=== PATIENT | male | born 1935 | race Caucasian/White ===

== ENCOUNTER 2019-01-30 22:44 | Emergency (ER) | payer MEDICARE, OTHER ==
[2019-01-30 22:51] VITALS: RESP 18
[2019-01-31] MEDS ORDERED: GELATIN SPONGE,ABSORB (LARGE) 1 EACH SPONGE TOPICAL STA (00:30)
--- NOTE | 2019-01-31 00:47 | ED ---
General Adult HPI - General Chief complaint: Wound/Laceration Stated complaint: Forearm Laceration Time Seen by Provider: 01/30/19 22:53 Source: patient, family Mode of arrival: wheelchair Limitations: no limitations - History of Present Illness Initial comments: Patient is an 9-year-old male presents emergency Department with a chief complaint of a cut on the hand. Patient reports the incident occurred approximately 2 hours prior to arrival. Patient reports he was working with porcelain when he lacerated the anterior aspect of the left forearm. Patient reports active bleeding at the time of incident which he has been able to maintain under control using Coban. Patient states he is taking baby aspirin. Patient denies any numbness or tingling anywhere the left arm. Patient denies any left upper extremity weakness and falls forward range of motion her left arm. Patient reports his tetanus shot is up-to-date. - Related Data Home Medications Medication Instructions Recorded Confirmed Aspirin 81 mg PO DAILY 03/27/14 01/30/19 Dutasteride [Avodart] 0.5 mg PO DAILY 03/27/14 01/30/19 amLODIPine BESYLATE [Norvasc] 5 mg PO DAILY 03/27/14 01/30/19 Multivit-Min/FA/Lycopene/Lut 1 tab PO DAILY 10/11/14 01/30/19 [Centrum Silver Tablet] Turmeric Root Extract [Turmeric] 500 mg PO DAILY 10/11/14 01/30/19 Vits A,C,E/Lutein/Minerals 1 tab PO DAILY 10/11/14 01/30/19 [Ocuvite with Lutein Tablet] Gabapentin [Neurontin] 800 mg PO TID 12/10/14 01/30/19 Albuterol Nebulized [Ventolin 2.5 mg INHALATION RT-QID PRN 12/11/14 01/30/19 Nebulized] HYDROcodone/APAP 7.5-325MG [[place] 1 tab PO BID PRN 01/30/19 01/30/19 7.5-325] Krill Oil 500 mg PO DAILY 01/30/19 01/30/19 Allergies Allergy/AdvReac Type Severity Reaction Status Date / Time Penicillins Allergy Rash/Hives Verified 01/30/19 22:58 Sulfa (Sulfonamide Allergy Rash/Hives Verified 01/30/19 22:58 Antibiotics) Review of Systems ROS Statement: Those systems with pertinent positive or pertinent negative responses have been documented in the HPI. ROS Other: All systems not noted in ROS Statement are negative. 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 BOWEL RESECTION WITH COLOSTOMY 11/2014, WOUND CENTER PROCEDURES R/T INFECTION IN ABDOMINAL WOUND, 08-15-15 reversal of colostomy/sigmoid resection/lysis of adhesions. Past Anesthesia/Blood Transfusion Reactions: No Reported Reaction Past Psychological History: No Psychological Hx Reported Smoking Status: Never smoker - Past Family History Mother Family Medical History: Cancer, Dementia Additional Family Medical History / Comment(s): breast cancer, heart murmur. mark escoto to be in her 80's. Father Family Medical History: Diabetes Mellitus Additional Family Medical History / Comment(s): at age 93 General Exam Limitations: no limitations General appearance: alert, in no apparent distress Head exam: Present: atraumatic, normocephalic, normal inspection Eye exam: Present: normal appearance, PERRL, EOMI Pupils: Present: normal accommodation ENT exam: Present: normal exam, normal oropharynx, mucous membranes moist, TM's normal bilaterally, normal external ear exam Neck exam: Present: normal inspection, full ROM Respiratory exam: Present: normal lung sounds bilaterally Cardiovascular Exam: Present: regular rate, normal rhythm, normal heart sounds Extremities exam: Present: full ROM, normal capillary refill, other (+2 ulnar and radial pulses bilaterally). Absent: normal inspection (1 sediment a laceration on the anterior aspect of the left forearm. Mild active bleeding.), tenderness Back exam: Present: normal inspection, full ROM Neurological exam: Present: alert, oriented X3 Psychiatric exam: Present: normal affect, normal mood Skin exam: Present: warm, intact, normal color Course Vital Signs 01/30/19 22:47 Temperature 97.9 F Pulse Rate 86 Respiratory 18 Rate Blood Pressure 160/76 O2 Sat by Pulse 98 Oximetry Procedures - Laceration Laceration #1 Consent Obtained: verbal consent Indication: laceration Site: upper extremity Size (cm): 1 Description: linear Depth: simple, single layer Sedation/Analgesia: none Anesthetic Used: lidocaine 1% Anesthesia Technique: local infiltration Amount (mls): 5 Pre-repair: irrigated extensively Type of Sutures: nylon Size of Sutures: 4-0 Number of Sutures: 2 Technique: simple, interrupted Patient Tolerated Procedure: well, no complications Medical Decision Making - Medical Decision Making Patient is a 3-year-old male presenting to emergency Department with a a chief complaint of a cut on the hand. Patient has a similar laceration on the anterior aspect of left forearm. Mild active bleeding noted. Pressure was applied until coagulation was achieved. Laceration site was repaired with 2 sutures. Patient advised to return to emergency department in 10 days for suture removal. Coban applied to prevent occurrence of any bleeding. Patient is not on blood thinners. Strict return parameters were thoroughly discussed the patient was understanding and agreeable. Case discussed with physician. Disposition Clinical Impression: Laceration Disposition: HOME SELF-CARE Condition: Stable Instructions (If sedation given, give patient instructions): Care For Your Stitches (DC), Laceration (DC) Additional Instructions: Please return to emergency department in 10 days for suture removal. Please follow proper wound care structures. Please return to emergency department if symptoms worsen. Is patient prescribed a controlled substance at d/c from ED?: No Referrals: Joey Oconnell MD [Primary Care Provider] - 1-2 days Time of Disposition: 00:46
[2019-01-31 01:12] VITALS: BP 140/79; PULSE 80; TEMP 97.8
== END 2019-01-31 01:12 | disposition home or self-care (01) ==
LOC: EC 22:44
DX: S51.812A Laceration without foreign body of left forearm, initial encounter (principal); J44.9 Chronic obstructive pulmonary disease, unspecified; Z79.82 Long term (current) use of aspirin; Z79.899 Other long term (current) drug therapy; Z88.0 Allergy status to penicillin; Z88.2 Allergy status to sulfonamides; W26.9XXA Contact with unspecified sharp object(s), initial encounter; Y92.002 Bathroom of unspecified non-institutional (private) residence as the place of occurrence of the external cause
CPT/HCPCS: 12001; 99282

== ENCOUNTER → 2019-02-01 | Outpatient (CLI) | payer MEDICARE, OTHER ==
--- NOTE | 2019-02-01 13:50 | US ---
EXAMINATION TYPE: US venous doppler duplex UE LT DATE OF EXAM: 02/01/2019 COMPARISON: NONE CLINICAL HISTORY: R22.30 Localized swelling, mass. Swelling. Hx of recent accidental arm laceration. SIDE PERFORMED: Left Grayscale, color doppler, spectral doppler imaging performed of the deep veins of the left upper extr emity. There is normal flow, compressibility and vascular waveforms. Left Arm: Negative for DVT IMPRESSION: No sonographic evidence of deep venous thrombosis within the left upper extremity.
== END | disposition home or self-care (01) ==
LOC: RADUSWWP 12:58
PROVIDERS: ATTEND Family Medicine
DX: R22.32 Localized swelling, mass and lump, left upper limb (principal)

== ENCOUNTER → 2020-02-08 | Outpatient (CLI) | payer MEDICARE, OTHER ==
--- NOTE | 2020-02-08 15:23 | CT ---
CT CHEST FOR PULMONARY EMBOLISM. EXAMINATION TYPE: CT angio chest DATE OF EXAM: 02/08/2020 INDICATION: Dyspnea. History of silicosis. CT DLP: 582 mGycm, Automated exposure control for dose reduction was used. CONTRAST: Patient injected with 100 mL of Isovue 370. COMPARISON: 10/06/2012 TECHNIQUE: CT of the chest is performed on a spiral scan at 2 mm thick sections. Study is performed with intravenous contrast timed for evaluation for pulmonary embolism. This will limit additional po rtions of the evaluation. 3-D MIP images reconstructed by the technologist are reviewed on the compu ter in the coronal and sagittal planes. FINDINGS: No persistent filling defects are evident to suggest an acute pulmonary embolism. No mediastinal or hilar adenopathy enlarged by CT criteria is evident. There is however extensive ca lcification within the small lymph nodes present. The ascending aorta diameter at the level of the ma in pulmonary artery is 3.8 cm. The main pulmonary artery diameter at the bifurcation is 3.7 cm. Vasc ular calcification is noted. Bilateral apical thickening is present. Small bilateral pleural effusions are present. There is perih ilar soft tissue densities extending into the hilum. A larger focus measuring 4.6 x 2.1 cm is in the left suprahilar region was apparently present previously and appears measurement similar to prior mary alice dy. In the coronal plane and some thickening of the soft tissue density extending towards the apex m ay be present compared to the prior study. Series [address] section through the upper abdomen r. There is a cyst in the anterior upper pole right kidn ey measuring 5.5 cm and 9 Hounsfield units. Fatty infiltration of the pancreas is present. Gallbladde r is surgically absent. IMPRESSIONS: 1. Small bilateral pleural effusions. 2. Extensive calcifications through the mediastinum lymphadenopathy. This is stable from comparison. 3. Perihilar soft tissue densities again evident. There may be some increasing soft tissue density in the left suprahilar region.
--- NOTE | 2020-02-09 19:18 | ECHOF ---
Referral Reason:R06.09 Dyspnea MEASUREMENTS -------- HEIGHT: 157.5 cm WEIGHT: 94.8 kg BP: RVIDd: 3.3 cm (< 3.3) IVSd: 1.2 cm (0.6 - 1.1) LVIDd: 4.4 cm (3.9 - 5.3) LVPWd: 1.5 cm (0.6 - 1.1) IVSs: 1.5 cm LVIDs: 4.3 cm LVPWs: 1.4 cm LA Diam: 3.9 cm (2.7 - 3.8) Ao Diam: 4.0 cm (2.0 - 3.7) MV EXCURSION: 24.642 mm (> 18.000) MV EF SLOPE: 195 mm/s (70 - 150) EPSS: 0.3 cm MV E Popeye: 1.04 m/s MV DecT: 114 ms MV A Popeye: 0.69 m/s MV E/A Ratio: 1.51 AV maxP.84 mmHg AV meanP.05 mmHg RAP: 5.00 mmHg RVSP: 26.52 mmHg FINDINGS -------- Atrial fibrillation. This was a technically adequate study. There is mild concentric left ventricular hypertrophy. Overall left ventricular systolic function i s low-normal with, an EF between 50 - 55 %. Left ventricular fillimg pressure cannot be estimated d ue to Atrial fibrillation. The right ventricle is normal in size. The left atrial size is normal. The right atrial size is normal. There is mild aortic valve sclerosis. Peak/mean gradient across the Aortic Valve is 10.84mmHg / 6.0 5mmHg. Mild mitral regurgitation is present. No regurgitation noted Right ventricular systolic pressure is normal at < 35 mmHg. The pulmonic valve was not well visualized. Aortic Root is mildly dilated and measures 4.1cm. There is no pericardial effusion. CONCLUSIONS -------- 1. There is mild concentric left ventricular hypertrophy. 2. Overall left ventricular systolic function is low-normal with, an EF between 50 - 55 %. 3. Left ventricular fillimg pressure cannot be estimated due to Atrial fibrillation. 4. The right ventricle is normal in size. 5. The left atrial size is normal. 6. The right atrial size is normal. 7. There is mild aortic valve sclerosis. 8. Peak/mean gradient across the Aortic Valve is 10.84mmHg / 6.05mmHg. 9. Mild mitral regurgitation is present. 10. No regurgitation noted 11. The pulmonic valve was not well visualized. 12. Aortic Root is mildly dilated and measures 4.1cm. 13. There is no pericardial effusion. [employer] PROCESS CONTROL TECHNICIAN: Nicolasa Umaña RDCS
== END | disposition home or self-care (01) ==
LOC: RADCTMAIN 11:43
PROVIDERS: ATTEND Internal Medicine Critical Care Medicine
DX: J90 Pleural effusion, not elsewhere classified (principal); M79.89 Other specified soft tissue disorders; I34.0 Nonrheumatic mitral (valve) insufficiency; I51.7 Cardiomegaly; I35.8 Other nonrheumatic aortic valve disorders; R59.0 Localized enlarged lymph nodes; Z88.0 Allergy status to penicillin; Z88.2 Allergy status to sulfonamides
CPT/HCPCS: 93306; 82565; 84520; 71275; 36415; Q9967

== ENCOUNTER 2020-04-14 09:34 | Inpatient (IN) | payer MEDICARE, OTHER ==
--- NOTE | 2020-04-14 09:59 | ED ---
General Adult HPI - General Chief complaint: Shortness of Breath Stated complaint: SOB, cough Time Seen by Provider: 04/14/20 09:45 Source: patient, RN notes reviewed Mode of arrival: wheelchair Limitations: no limitations - History of Present Illness Initial comments: Patient is a pleasant 84-year-old male presenting to the emergency department with difficulty in breathing. Onset of symptoms was several days ago. Patient has had some leg swelling progressive over the past few weeks. Patient has new diagnosis of irregular heartbeat. Patient was placed on Eliquis and Lasix. Patient has orthopnea this started last night. Dyspnea WORSENS with exertion. No calf pain. No fever. - Related Data Home Medications Medication Instructions Recorded Confirmed Dutasteride [Avodart] 0.5 mg PO DAILY 03/27/14 04/14/20 amLODIPine BESYLATE [Norvasc] 5 mg PO DAILY 03/27/14 04/14/20 Multivit-Min/FA/Lycopene/Lut 1 tab PO DAILY 10/11/14 04/14/20 [Centrum Silver Tablet] Turmeric Root Extract [Turmeric] 500 mg PO DAILY 10/11/14 04/14/20 Vits A,C,E/Lutein/Minerals 1 tab PO DAILY 10/11/14 04/14/20 [Ocuvite with Lutein Tablet] Gabapentin [Neurontin] 800 mg PO TID 12/10/14 04/14/20 Albuterol Nebulized [Ventolin 2.5 mg INHALATION RT-QID PRN 12/11/14 04/14/20 Nebulized] Krill Oil 500 mg PO DAILY 01/30/19 04/14/20 Apixaban [Eliquis] 2.5 mg PO BID 04/14/20 04/14/20 Furosemide [Lasix] 40 mg PO DAILY 04/14/20 04/14/20 HYDROcodone/APAP 7.5-325MG [[place] 1 tab PO BID PRN 04/14/20 04/14/20 7.5-325] Valsartan [Diovan] 160 mg PO HS 04/14/20 04/14/20 Allergies Allergy/AdvReac Type Severity Reaction Status Date / Time Penicillins Allergy Rash/Hives Verified 04/14/20 11:40 Sulfa (Sulfonamide Allergy Rash/Hives Verified 04/14/20 11:40 Antibiotics) Review of Systems ROS Statement: Those systems with pertinent positive or pertinent negative responses have been documented in the HPI. ROS Other: All systems not noted in ROS Statement are negative. Constitutional: Denies: fever Eyes: Denies: eye pain ENT: Denies: ear pain Respiratory: Reports: dyspnea Cardiovascular: Reports: dyspnea on exertion, orthopnea, edema Endocrine: Reports: fatigue Gastrointestinal: Denies: abdominal pain Genitourinary: Denies: dysuria Musculoskeletal: Denies: back pain Skin: Denies: rash Neurological: Denies: weakness Past Medical History Past Medical History: COPD, Osteoarthritis (OA), Prostate Disorder, Respiratory Disorder Additional Past Medical History / Comment(s): BPH, NERVE DAMAGE & PAIN LEFT HAND FROM SHINGLES -HE CAN ONLY HIS THUMB AND INDEX FINGER , HE HAS LUMBAR PAIN STIMULATOR FOR THE PAIN IN HIS LEFT HAND, HX OF DIVERTICULOSIS, PERFORATED BOWEL WITH COLOSTOMY (11/2014) ., 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 BOWEL RESECTION WITH COLOSTOMY 11/2014, WOUND CENTER PROCEDURES R/T INFECTION IN ABDOMINAL WOUND, 16 reversal of colostomy/sigmoid resection/lysis of adhesions. Past Anesthesia/Blood Transfusion Reactions: No Reported Reaction Past Psychological History: No Psychological Hx Reported Smoking Status: Never smoker Past Alcohol Use History: Daily Past Drug Use History: None Reported - Past Family History Mother Family Medical History: Cancer, Dementia Additional Family Medical History / Comment(s): breast cancer, heart murmur. lives to be in her 80's. Father Family Medical History: Diabetes Mellitus Additional Family Medical History / Comment(s): at age 93 General Exam Limitations: no limitations General appearance: alert, in no apparent distress Head exam: Present: normocephalic Eye exam: Present: normal appearance Neck exam: Present: normal inspection Respiratory exam: Present: wheezes, rales Cardiovascular Exam: Present: irregular rhythm GI/Abdominal exam: Present: soft. Absent: tenderness Extremities exam: Present: pedal edema. Absent: calf tenderness Neurological exam: Present: alert Psychiatric exam: Present: normal affect, normal mood Skin exam: Present: normal color Course Vital Signs 04/14/20 04/14/20 04/14/20 09:42 10:05 10:11 Temperature 99.1 F 97.9 F Pulse Rate 69 54 L Respiratory 16 22 20 Rate Blood Pressure 112/66 166/72 O2 Sat by Pulse 91 L 96 Oximetry 04/14/20 04/14/20 04/14/20 10:53 11:01 11:24 Temperature Pulse Rate 54 L 53 L 53 L Respiratory 20 Rate Blood Pressure 145/83 O2 Sat by Pulse 95 Oximetry - Reevaluation(s) Reevaluation #1: 04/14/20 11:08 Case was discussed with Dr. Elliott who is familiar with this patient . 04/14/20 11:49 Case was discussed with Dr. England, who will admit EKG Findings - EKG Comments: EKG Findings:: Atrial flutter with rate of 90. PVC present. QRS 90. QT 394. QTC 41. Normal axis. Normal QRS. Nonspecific T waves. Medical Decision Making - Medical Decision Making Patient clinically presents with symptoms similar to CHF however BNP is not significantly elevated. Chest x-ray shows possible CHF versus pneumonia. Testing for coronavirus will be added. Patient will be covered with IV antibiotics pending further results. Dr. England has been paged for admission. - Lab Data Result diagrams: 04/14/20 10:33 04/14/20 10:33 Lab Results 04/14/20 04/14/20 04/14/20 Range/Units 10:33 10:33 10:33 WBC 8.2 (3.8-10.6) k/uL RBC 5.92 H (4.30-5.90) m/uL Hgb 12.8 L (13.0-17.5) gm/dL Hct 43.0 (39.0-53.0) % MCV 72.7 L (80.0-100.0) fL MCH 21.6 L (25.0-35.0) pg MCHC 29.7 L (31.0-37.0) g/dL RDW 17.2 H (11.5-15.5) % Plt Count 446 (150-450) k/uL MPV 6.6 Neutrophils % 87 % Lymphocytes % 5 % Monocytes % 7 % Eosinophils % 0 % Basophils % 0 % Neutrophils # 7.1 (1.3-7.7) k/uL Lymphocytes # 0.4 L (1.0-4.8) k/uL Monocytes # 0.6 (0-1.0) k/uL Eosinophils # 0.0 (0-0.7) k/uL Basophils # 0.0 (0-0.2) k/uL Hypochromasia Marked Poikilocytosis Slight Anisocytosis Slight Microcytosis Moderate PT 10.9 (9.0-12.0) sec INR 1.1 (<1.2) APTT 24.3 (22.0-30.0) sec Sodium 140 (137-145) mmol/L Potassium 4.4 (3.5-5.1) mmol/L Chloride 99 (98-107) mmol/L Carbon Dioxide 34 H (22-30) mmol/L Anion Gap 7 mmol/L BUN 28 H (9-20) mg/dL Creatinine 0.78 (0.66-1.25) mg/dL Est GFR (CKD-EPI)AfAm >90 (>60 ml/min/1.73 sqM) Est GFR (CKD-EPI)NonAf 84 (>60 ml/min/1.73 sqM) Glucose 143 H (74-99) mg/dL Plasma Lactic Acid Rajesh (0.7-2.0) mmol/L Calcium 9.6 (8.4-10.2) mg/dL Total Bilirubin 0.8 (0.2-1.3) mg/dL AST 65 H (17-59) U/L ALT 24 (4-49) U/L Alkaline Phosphatase 139 H (38-126) U/L Troponin I (0.000-0.034) ng/mL NT-Pro-B Natriuret Pep pg/mL Total Protein 8.5 H (6.3-8.2) g/dL Albumin 4.0 (3.5-5.0) g/dL 04/14/20 04/14/20 04/14/20 Range/Units 10:33 10:33 10:33 WBC (3.8-10.6) k/uL RBC (4.30-5.90) m/uL Hgb (13.0-17.5) gm/dL Hct (39.0-53.0) % MCV (80.0-100.0) fL MCH (25.0-35.0) pg MCHC (31.0-37.0) g/dL RDW (11.5-15.5) % Plt Count (150-450) k/uL MPV Neutrophils % % Lymphocytes % % Monocytes % % Eosinophils % % Basophils % % Neutrophils # (1.3-7.7) k/uL Lymphocytes # (1.0-4.8) k/uL Monocytes # (0-1.0) k/uL Eosinophils # (0-0.7) k/uL Basophils # (0-0.2) k/uL Hypochromasia Poikilocytosis Anisocytosis Microcytosis PT (9.0-12.0) sec INR (<1.2) APTT (22.0-30.0) sec Sodium (137-145) mmol/L Potassium (3.5-5.1) mmol/L Chloride (98-107) mmol/L Carbon Dioxide (22-30) mmol/L Anion Gap mmol/L BUN (9-20) mg/dL Creatinine (0.66-1.25) mg/dL Est GFR (CKD-EPI)AfAm (>60 ml/min/1.73 sqM) Est GFR (CKD-EPI)NonAf (>60 ml/min/1.73 sqM) Glucose (74-99) mg/dL Plasma Lactic Acid Rajesh 2.0 (0.7-2.0) mmol/L Calcium (8.4-10.2) mg/dL Total Bilirubin (0.2-1.3) mg/dL AST (17-59) U/L ALT (4-49) U/L Alkaline Phosphatase (38-126) U/L Troponin I 0.014 (0.000-0.034) ng/mL NT-Pro-B Natriuret Pep 1100 pg/mL Total Protein (6.3-8.2) g/dL Albumin (3.5-5.0) g/dL - Radiology Data Radiology results: image reviewed (Chest x-ray shows probable changes and effusion. Consider pneumonia or CHF.) Disposition Clinical Impression: Dyspnea Disposition: ADMITTED IP TO THIS [facility] Condition: Serious Is patient prescribed a controlled substance at d/c from ED?: No Decision Time: 11:33
[2020-04-14] MEDS ORDERED: IPRATROPIUM-ALBUTEROL 3 ML NEB INHALATION STA (10:31)
[2020-04-14] MEDS ORDERED: FUROSEMIDE 10 MG/ML 4 ML VIAL IV STA (10:31)
[2020-04-14 10:46] LABS: Anisocytosis Slight; Basophils % (A) 0 %; Eosinophils % (A) 0 %; HGB 12.8 gm/dL (13.0-17.5); Hypochromasia Marked; Lymphocytes # (A) 0.4 k/uL (1.0-4.8); Lymphocytes % (A) 5 %; MCH 21.6 pg (25.0-35.0); MCHC 29.7 g/dL (31.0-37.0); MCV 72.7 fL (80.0-100.0); Mean Platelet Volume 6.6; Microcytosis Moderate; Monocytes # (A) 0.6 k/uL (0-1.0); Monocytes % (A) 7 %; Neutrophils # (A) 7.1 k/uL (1.3-7.7); Neutrophils % (A) 87 %; Platelet Count 446 k/uL (150-450); Poikilocytosis Slight; RBC 5.92 m/uL (4.30-5.90); RDW 17.2 % (11.5-15.5); WBC 8.2 k/uL (3.8-10.6)
[2020-04-14 10:54] LABS: ALT 24 U/L (4-49); AST 65 U/L (17-59); African American GFR (CKD) >90 (>60 ml/min/1.73 sqM); Alkaline Phosphatase 139 U/L (38-126); Anion Gap 7 mmol/L; Blood Urea Nitrogen 28 mg/dL (9-20); Calcium 9.6 mg/dL (8.4-10.2); Carbon Dioxide 34 mmol/L (22-30); Chloride 99 mmol/L (98-107); Glucose 143 mg/dL (74-99); Non-African American GFR(CKD) 84 (>60 ml/min/1.73 sqM); Potassium 4.4 mmol/L (3.5-5.1); Sodium 140 mmol/L (137-145); Total Bilirubin 0.8 mg/dL (0.2-1.3); Total Protein 8.5 g/dL (6.3-8.2)
--- NOTE | 2020-04-14 11:01 | XR ---
EXAMINATION TYPE: XR chest 2V DATE OF EXAM: 04/14/2020 COMPARISON: 12/15/2014 TECHNIQUE: PA and lateral views submitted. HISTORY: Shortness of breath FINDINGS: Large left upper lobe lung mass with bilateral areas of consolidation and pleural thickening and effu louis. There is a lead overlying the cervical spine with wire which may represent stimulator device. A rthropathy of the shoulders. IMPRESSION: 1. Diffuse pleural-parenchymal changes are seen progressed from the prior exam with a new areas of in filtrate and pleural effusion. Suspected left upper lobe lung mass or masslike area of consolidation. Correlate for pneumonia otherwise consider CHF.
[2020-04-14 11:12] LABS: INR 1.1 (<1.2); Partial Thromboplastin Time 24.3 sec (22.0-30.0); Prothrombin Time 10.9 sec (9.0-12.0)
[2020-04-14] MEDS ORDERED: PNEUMONIA PROTOCOL UTILIZED 1 EACH MISC PO PRN (11:35)
[2020-04-14] MEDS ORDERED: LEVOFLOXACIN 750MG-D5W PMX 750 MG in DEXTROSE/WATER 1 150ML.BAG IVPB STA (11:35)
[2020-04-14] MEDS ORDERED: IPRATROPIUM-ALBUTEROL 3 ML NEB INHALATION PRN (11:35)
[2020-04-14] MEDS ORDERED: HYDROcodone/APAP 7.5-325MG 1 EACH TAB PO PRN (11:51)
[2020-04-14] MEDS: IPRATROPIUM-ALBUTEROL 3 ML NEB INHALATION SCH ×3 (12:34→20:11)
[2020-04-14 12:38] LABS: C Reactive Protein 47.9 mg/L (<10.0)
[2020-04-14 17:15] LABS: Ferritin 331.7 ng/mL (22.0-322.0)
[2020-04-14] MEDS: GABAPENTIN 400 MG CAP PO SCH ×2 (17:17→21:29)
--- NOTE | 2020-04-14 18:11 | P.CNPUL ---
History of Present Illness Consult date: 04/14/20 Reason for consult: dyspnea History of present illness: 84-year-old male patient came into the emergency department because of worsening shortness of breath. He has been progressively getting more short of breath over the past few days. Developed some increased swelling in lower extremities bilaterally. The patient is known to me from the office. I was working up this patient for shortness of breath and I've also worked with Dr. Mckee from cardiology in regards to his problem. The patient was diagnosed having a new onset atrial fibrillation which we thought was contributing to shortness of breath. He did have atrial fibrillation/flutter. Note that during this current admission, he started having symptoms of exertional dyspnea and orthopnea along with lower extremity edema. In the ED, the patient tested negative for coronary bypass, 19. He had a wet second of 8.2 with a hemoglobin of 12.8. Platelet count is at 446. Note that the patient had a proBNP level of 1100. His BUN is 28 with a creatinine of 0.7. His chest x-ray showed chronic lung disease/fibrosis in addition to that there was increased pulmonary infiltration and pleural effusion and suspected CHF/interstitial edema on top of his chronic lung disease. In summary, this patient has been struggling with shortness of breath for quite some time. He shortness of breath started getting worse as of January 2020. 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 He has not used any pulmonary respiratory precautions. His FEV1 was in order of 50% of predicted with a diffusion capacity of 58% of predicted. This is based on the pulmonary function test from July 2015. No TB exposure. His PPD skin test was negative. He has also recovered from a bout of shingles in his left upper extremity which has less with significant amount of neuropathic pain in the involved area. I worked him up with another CAT scan of the chest that was done in January 2020 and the CAT scan showed essentially silicosis and abnormal pulmonary opacities that have not changed compared to previous evaluation from 2012. Nevertheless, there were small bilateral pleural effusion and he did demonstrate swelling in lower extremities and I started him on Lasix I referred him to cardiology for further identified that the patient was having a fibrillation/flutter. The patient was requiring oxygen.. Most recent echocardiogram that was done on 02/08/2020 showed a preserved LV function with an ejection fraction of 50-55%. He had mild concentric LVH, RV was within normal limits, there was mild aortic sclerosis and aortic root was measuring 4.1 cm without evidence of pericardial effusion. Review of Systems Comprehensive General Adult ROS Reported by Patient Eyes * Eyes: no dry eyes, no vision change, no irritation ENMT * Ears: no difficulty hearing, no ear pain * Nose: no frequent nosebleeds, no nose problems, no sinus problems * Mouth/Throat: no sore throat, no bleeding gums, no snoring, no dry mouth, no mouth ulcers, no oral abnormalities, no teeth problems Cardiovascular * Cardiovascular: no chest pain, no arm pain on exertion, shortness of breath when walking, shortness of breath when lying down, no palpitations, no known heart murmur , orthopnea and lower extremity edema Respiratory * Respiratory: shortness of breath Gastrointestinal * Gastrointestinal: (no GI issues) Genitourinary * Genitourinary: no incontinence, no difficulty urinating, no hematuria, no increased frequency Musculoskeletal * Musculoskeletal: no muscle aches, no muscle weakness, no arthralgias/joint pain, no back pain, no swelling in the extremities Integumentary * Skin: no abnormal mole, no jaundice, no rashes, no laceration Neurologic * Neurologic: no loss of consciousness, no numbness, no seizures, no dizziness, no migraines, no headaches, no tremor, weakness (severe weakness and atrophy in his left upper extremity secondary to a previous shingles affecting the brachial plexus.) Psychiatric * Psych: no depression, no sleep disturbances, feeling safe in a relationship, no alcohol abuse, no anxiety, no hallucinations, no suicidal thoughts Endocrine * Endocrine: no fatigue Hematologic/Lymphatic * Hematologic/Lymphatic no swollen glands, no bruising, no excessive bleeding Allergic/Immunologic * Allergy/Immunologic: no runny nose, no sinus pressure, no itching, no hives, no frequent sneezing Past Medical History Past Medical History: COPD, Osteoarthritis (OA), Prostate Disorder, Respiratory Disorder Additional Past Medical History / Comment(s): Silicosis, pneumoconiosis, A. 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 BOWEL RESECTION WITH COLOSTOMY 11/2014, [facility]OUND [facility] PROCEDURES R/T INFECTION IN ABDOMINAL WOUND, 08-15-15 reversal of colostomy/sigmoid resection/lysis of adhesions. Past Anesthesia/Blood Transfusion Reactions: No Reported Reaction Past Psychological History: No Psychological Hx Reported Smoking Status: Never smoker Past Alcohol Use History: Daily Additional Past Alcohol Use History / Comment(s): 1 GLASS OF WINE WITH DINNER. Past Drug Use History: None Reported - Past Family History Mother Family Medical History: Cancer, Dementia Additional Family Medical History / Comment(s): breast cancer, heart murmur. lives to be in her 80's. Father Family Medical History: Diabetes Mellitus Additional Family Medical History / Comment(s): at age 93 Medications and Allergies Home Medications Medication Instructions Recorded Confirmed Type Dutasteride [Avodart] 0.5 mg PO DAILY 03/27/14 04/14/20 History amLODIPine BESYLATE [Norvasc] 5 mg PO DAILY 03/27/14 04/14/20 History Multivit-Min/FA/Lycopene/Lut 1 tab PO DAILY 10/11/14 04/14/20 History [Centrum Silver Tablet] Turmeric Root Extract [Turmeric] 500 mg PO DAILY 10/11/14 04/14/20 History Vits A,C,E/Lutein/Minerals 1 tab PO DAILY 10/11/14 04/14/20 History [Ocuvite with Lutein Tablet] Gabapentin [Neurontin] 800 mg PO TID 12/10/14 04/14/20 History Albuterol Nebulized [Ventolin 2.5 mg INHALATION RT-QID PRN 12/11/14 04/14/20 History Nebulized] Krill Oil 500 mg PO DAILY 01/30/19 04/14/20 History Apixaban [Eliquis] 2.5 mg PO BID 04/14/20 04/14/20 History Furosemide [Lasix] 40 mg PO DAILY 04/14/20 04/14/20 History HYDROcodone/APAP 7.5-325MG [[place] 1 tab PO BID PRN 04/14/20 04/14/20 History 7.5-325] Valsartan [Diovan] 160 mg PO HS 04/14/20 04/14/20 History Allergies Allergy/AdvReac Type Severity Reaction Status Date / Time Penicillins Allergy Rash/Hives Verified 04/14/20 11:40 Sulfa (Sulfonamide Allergy Rash/Hives Verified 04/14/20 11:40 Antibiotics) Physical Exam Vitals: Vital Signs Temp Pulse Pulse Resp BP BP Pulse Ox 04/14/20 16:26 57 L 04/14/20 16:16 56 L 04/14/20 13:41 97 F L 54 L 19 151/66 95 04/14/20 11:57 97.3 F L 04/14/20 11:24 53 L 20 145/83 95 04/14/20 11:01 53 L 04/14/20 10:53 54 L 04/14/20 10:11 97.9 F 54 L 20 166/72 96 04/14/20 10:05 22 04/14/20 09:42 99.1 F 69 16 112/66 91 L Intake and Output 04/14/20 04/14/20 04/14/20 06:59 14:59 22:59 Intake Total 100 Output Total 500 Balance -400 Intake: Intake, IV Titration 100 Amount Levofloxacin 750Mg-D5w 100 Pmx 750 mg In Dextrose/ Water 1 150ml.bag @ 100 mls/hr IVPB ONCE STA Rx#: [id number] Output: Urine 500 Other: Weight 90.718 kg * General Appearance no diaphoresis, no respiratory distress, speech not interrupted by breaths, no dyspnea, no pallor, not cachectic, well nourished, appears well, obesity * Head exam was generally normal. There was no scleral icterus or corneal arcus. Mucous membranes were moist. * HEENT no pursed lip breathing, no jugular venous distention, no mucous membrane cyanosis, no perioral cyanosis, mallampati classification: class 1, Mallampati Classification: Class 3 * Chest no barrel chest, no retractions, no sternocleidomastoid muscle contractions, no supraclavicular retractions, no intercostal retractions, no prolonged expiratory wheezing, no decreased air movement, no rhonchi, no hyperinflation, decreased air movement (scoliosis of the spine) * Heart no right ventricular heave, no distant heart sounds, no s3 gallop * GI bowel sounds: hyperactive (borborygmi), bowel sounds: diminished or absent (scar from previous surgery over the mid abdomen) * Extremities no cyanosis, no clubbing, there is +1 edema in the lower extremities and atrophy and weakness in left upper extremity related to previous shingles infection edema * Neurologic no decreased mental status, no somnolence, no confusion * Examination of the skin revealed no evidence of significant rashes, suspicious appearing nevi or other concerning lesions. Results - Laboratory Findings CBC and BMP: 04/14/20 10:33 04/14/20 10:33 PT/INR, D-dimer PT 10.9 sec (9.0-12.0) 04/14/20 10:33 INR 1.1 (<1.2) 04/14/20 10:33 Abnormal lab findings: Abnormal Labs 04/14/20 04/14/20 04/14/20 10:33 10:33 10:33 RBC 5.92 H Hgb 12.8 L MCV 72.7 L MCH 21.6 L MCHC 29.7 L RDW 17.2 H Lymphocytes # 0.4 L Carbon Dioxide 34 H BUN 28 H Glucose 143 H Ferritin 331.7 H AST 65 H Alkaline Phosphatase 139 H Lactate Dehydrogenase 941 H C-Reactive Protein 47.9 H Total Protein 8.5 H - Diagnostic Findings Chest x-ray: image reviewed Assessment and Plan Plan: 1 shortness of breath as the patient is experiencing dyspnea on exertion along with orthopnea. Presentation is consistent with CHF. The patient understands chronic lung disease and fibrosis related to silicosis. He does have chronic restrictive lung disease. Furthermore, the patient developed a recent worsening shortness of breath and his current presentation is consistent with CHF. The jade virus COVID 19 testing was negative. The chest x-ray shows chronic fibrotic changes in addition to a component of interstitial edema and small bilateral pleural effusions. On examination, the patient has a congested cough and is also having some wheeze. 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
[2020-04-14] MEDS: methylPREDNISolone SOD SUCCI 40 MG/ML 1 ML VIAL IV SCH ×2 (18:54→23:41)
[2020-04-14] MEDS: FUROSEMIDE 10 MG/ML 4 ML VIAL IV SCH (21:29)
[2020-04-14] MEDS: APIXABAN 2.5 MG TABLET PO SCH (21:29)
[2020-04-14] MEDS: VALSARTAN 160 MG TAB PO SCH (21:29)
[2020-04-15 01:39] LABS: Magnesium 2.2 mg/dL (1.6-2.3); Potassium 4.5 mmol/L (3.5-5.1)
[2020-04-15 06:02] LABS: Glucose,Whole Blood 140 mg/dL (75-99)
[2020-04-15] MEDS: INSULIN ASPART (NovoLOG) 100 UNIT/ML VIAL SQ SCH ×4 (06:30→22:02)
[2020-04-15] MEDS ORDERED: FUROSEMIDE 40 MG TAB PO SCH (09:00)
[2020-04-15] MEDS: methylPREDNISolone SOD SUCCI 40 MG/ML 1 ML VIAL IV SCH ×3 (09:10→23:18)
[2020-04-15] MEDS: FINASTERIDE 5 MG TAB PO SCH (09:11)
[2020-04-15] MEDS: GABAPENTIN 400 MG CAP PO SCH ×3 (09:11→22:01)
[2020-04-15] MEDS: amLODIPine 5 MG TAB PO SCH (09:11)
[2020-04-15] MEDS: FUROSEMIDE 10 MG/ML 4 ML VIAL IV SCH ×2 (09:11→22:02)
[2020-04-15] MEDS: APIXABAN 2.5 MG TABLET PO SCH ×2 (09:11→22:01)
[2020-04-15] MEDS: LEVOFLOXACIN 750 MG TAB PO SCH (09:11)
[2020-04-15] MEDS: IPRATROPIUM-ALBUTEROL 3 ML NEB INHALATION SCH ×4 (09:20→21:35)
--- NOTE | 2020-04-15 09:47 | US ---
EXAMINATION TYPE: US chest DATE OF EXAM: 04/15/2020 COMPARISON: NONE CLINICAL HISTORY: effusions. TECHNIQUE: Targeted ultrasound of the posterior lower bilateral hemithoraces EXAM MEASUREMENTS: Left Pleural Effusion pocket size: 11.1 cm Left skin surface to fluid distance: 1.6 cm Left side marked for possible thoracentesis outside the dept. Pulmonologists are able to review the images in the patient?s EMR. IMPRESSIONS: As above
--- NOTE | 2020-04-15 10:41 | P.CRDCN ---
<Zaida De La Cruz - Last Filed: 04/15/20 10:15> History of Present Illness History of present illness: HISTORY OF PRESENTING ILLNESS This is a pleasant 84-year-old past medical history significant for right lobectomy secondary silicosis 1987, hypertension and atrial flutter on eliquis. He follows in the office with Dr. Figueroa. We have been asked to see in consultation for shortness of breath and suspected heart failure. He saw Dr. Figueroa in the office 04/01/2020 for symptoms of shortness of breath with exertion and lower extremity swelling. He was having some rales in the lungs also on exam at that time. He started him on valsartan, increase his oral daily lasix and decreased his amlodipine. The patient states he was following all these things at home but his breathing wasn't getting any better. On arrival he was started on IV lasix 40 mg IV BID. He is seen this morning still feeling short of breath however his edema has improved. He denies chest pain, dizziness or palpitations. DIAGNOSTICS EKG reveals atrial flutter wit heart rate of 90. Chest xray diffuse pleural-parenchymal changes with new areas of bilateral pleural effusions. Consider penumonia or heart failure. Laboratory reviewed, WBC 8.2, hgb 12.8, plt 446, sodium 140, potassium 4.5, creatinine 0.78, magnesium 2.2, troponin negative x1, NTproBNP normal at 1100 and procalcitonin 0.10 and COVID negative. Current cardiac medications include amlodipine 5 mg aily, valsartan 160 mg daily, lasix 40 mg daily and eliquis 2.5 mg BID. REVIEW OF SYSTEMS At the time of my exam: CONSTITUTIONAL: Denies fever or chills. CARDIOVASCULAR: Complains of shortness of breath and orthopnea. Denies chest pain, PND or palpitations. RESPIRATORY: Denies cough. GASTROINTESTINAL: Denies abdominal pain, diarrhea, constipation, nausea or vomiting. MUSCULOSKELETAL: Denies myalgias. NEUROLOGIC: Denies numbness, tingling or weakness. ENDOCRINE: Denies fatigue, weight change, polydipsia or polyurina. GENITOURINARY: Denies burning, hematuria or urgency with micturation. HEMATOLOGIC: Denies history of anemia or bleeding. PHYSICAL EXAMINATION Blood pressure 168/78 heart rate 58 afebrile and maintaining oxygen saturation on nasal cannula. CONSTITUTIONAL: No apparent distress. HEENT: Head is normocephalic. Pupils are equal, round. Sclerae anicteric. Mucous membranes of the mouth are moist. No JVD. No carotid bruit. CHEST EXAMINATION: Scattered rhonchi, bibasilar rales and expiratory wheeze. No chest wall tenderness is noted on palpation or with deep breathing. HEART EXAMINATION: Regular rate and rhythm. S1, S2 heard. No murmurs, gallops or rub. ABDOMEN: Soft, nontender. Positive bowel sounds. EXTREMITIES: 2+ peripheral pulses, trace bilateral lower extremity edema and no calf tenderness. NEUROLOGIC EXAMINATION: Patient is awake, alert and oriented x3. ASSESSMENT Shortness of breath, multi-factorial. No real improvement on outpatient increased lasix, normal NTproBNP. Bilateral pleural effusions Typical atrial flutter with controlled rate History of silicosis s/p lobectomy with lung fibrosis PLAN Obtain ultrasound of the chest to assess pleural effusions noted on bedside echocardiogram with fibrin noted. Less likely to be cardiac driven with fibrin. Consider therapeutic/diagnostic thoracentesis if found to be sizable. Thank you kindly for this consultation. Nurse Practitioner note has been reviewed, I agree with a documented findings and plan of care. Patient was seen and examined. Past Medical History Past Medical History: COPD, Osteoarthritis (OA), Prostate Disorder, Respiratory Disorder Additional Past Medical History / Comment(s): Silicosis, pneumoconiosis, A. 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 BOWEL RESECTION WITH COLOSTOMY 11/2014, [facility] PROCEDURES R/T INFECTION IN ABDOMINAL WOUND, 08-15-15 reversal of colostomy/sigmoid resection/lysis of adhesions. Past Anesthesia/Blood Transfusion Reactions: No Reported Reaction Past Psychological History: No Psychological Hx Reported Smoking Status: Never smoker Past Alcohol Use History: Daily Additional Past Alcohol Use History / Comment(s): 1 GLASS OF WINE WITH DINNER. Past Drug Use History: None Reported - Past Family History Mother Family Medical History: Cancer, Dementia Additional Family Medical History / Comment(s): breast cancer, heart murmur. lives to be in her 80's. Father Family Medical History: Diabetes Mellitus Additional Family Medical History / Comment(s): at age 93 Medications and Allergies Home Medications Medication Instructions Recorded Confirmed Type Dutasteride [Avodart] 0.5 mg PO DAILY 03/27/14 04/14/20 History amLODIPine BESYLATE [Norvasc] 5 mg PO DAILY 03/27/14 04/14/20 History Multivit-Min/FA/Lycopene/Lut 1 tab PO DAILY 10/11/14 04/14/20 History [Centrum Silver Tablet] Turmeric Root Extract [Turmeric] 500 mg PO DAILY 10/11/14 04/14/20 History Vits A,C,E/Lutein/Minerals 1 tab PO DAILY 10/11/14 04/14/20 History [Ocuvite with Lutein Tablet] Gabapentin [Neurontin] 800 mg PO TID 12/10/14 04/14/20 History Albuterol Nebulized [Ventolin 2.5 mg INHALATION RT-QID PRN 12/11/14 04/14/20 History Nebulized] Krill Oil 500 mg PO DAILY 01/30/19 04/14/20 History Apixaban [Eliquis] 2.5 mg PO BID 04/14/20 04/14/20 History Furosemide [Lasix] 40 mg PO DAILY 04/14/20 04/14/20 History HYDROcodone/APAP 7.5-325MG [Gardners 1 tab PO BID PRN 04/14/20 04/14/20 History 7.5-325] Valsartan [Diovan] 160 mg PO HS 04/14/20 04/14/20 History Allergies Allergy/AdvReac Type Severity Reaction Status Date / Time Penicillins Allergy Rash/Hives Verified 04/14/20 11:40 Sulfa (Sulfonamide Allergy Rash/Hives Verified 04/14/20 11:40 Antibiotics) Physical Exam Vitals: Vital Signs Temp Pulse Pulse Resp BP BP Pulse Ox 04/15/20 09:21 58 L 04/15/20 04:00 74 20 168/78 95 04/14/20 23:58 97.8 F 56 L 22 140/73 97 04/14/20 20:22 60 04/14/20 20:13 57 L 04/14/20 20:00 97.5 F L 55 L 24 161/66 96 04/14/20 16:26 57 L 04/14/20 16:16 56 L 04/14/20 16:00 97.5 F L 55 L 24 169/75 94 L 04/14/20 13:41 97 F L 54 L 19 151/66 95 04/14/20 11:57 97.3 F L 04/14/20 11:24 53 L 20 145/83 95 04/14/20 11:01 53 L 04/14/20 10:53 54 L 04/14/20 10:11 97.9 F 54 L 20 166/72 96 04/14/20 10:05 22 04/14/20 09:42 99.1 F 69 16 112/66 91 L Intake and Output 04/14/20 04/15/20 04/15/20 22:59 06:59 14:59 Intake Total 120 50 Output Total 180 600 Balance -60 -550 Intake: Oral 120 50 Output: Urine 180 600 Other: Voiding Method Urinal Urinal Weight 91.1 kg Results 04/14/20 10:33 04/15/20 01:07 Cardiac Enzymes 04/14/20 04/14/20 04/14/20 Range/Units 10:33 10:33 10:33 AST 65 H (17-59) U/L Lactate Dehydrogenase 941 H (313-618) U/L Troponin I 0.014 (0.000-0.034) ng/mL Coagulation 04/14/20 Range/Units 10:33 PT 10.9 (9.0-12.0) sec APTT 24.3 (22.0-30.0) sec CBC 04/14/20 Range/Units 10:33 WBC 8.2 (3.8-10.6) k/uL RBC 5.92 H (4.30-5.90) m/uL Hgb 12.8 L (13.0-17.5) gm/dL Hct 43.0 (39.0-53.0) % Plt Count 446 (150-450) k/uL Comprehensive Metabolic Panel 04/14/20 04/15/20 Range/Units 10:33 01:07 Sodium 140 (137-145) mmol/L Potassium 4.4 4.5 (3.5-5.1) mmol/L Chloride 99 (98-107) mmol/L Carbon Dioxide 34 H (22-30) mmol/L BUN 28 H (9-20) mg/dL Creatinine 0.78 (0.66-1.25) mg/dL Glucose 143 H (74-99) mg/dL Calcium 9.6 (8.4-10.2) mg/dL AST 65 H (17-59) U/L ALT 24 (4-49) U/L Alkaline Phosphatase 139 H (38-126) U/L Total Protein 8.5 H (6.3-8.2) g/dL Albumin 4.0 (3.5-5.0) g/dL Current Medications Generic Name Dose Route Start Last Admin Trade Name Freq PRN Reason Stop Dose Admin Hydrocodone Bitart/Acetaminophen 1 each 04/14/20 11:51 04/15/20 03:22 Hydrocodone/Apap 7.5-325mg 1 Each Tab PO 1 each BID PRN Administration Pain Albuterol/Ipratropium 3 ml 04/14/20 12:00 04/15/20 09:20 Ipratropium-Albuterol 3 Ml Neb INHALATION 3 ml RT-QID ANNE Administration Albuterol/Ipratropium 3 ml 04/14/20 11:35 Ipratropium-Albuterol 3 Ml Neb INHALATION RT-Q4H PRN shortness of breath Amlodipine Besylate 5 mg 04/15/20 09:00 04/15/20 09:11 Amlodipine 5 Mg Tab PO 5 mg DAILY ANNE Administration Apixaban 2.5 mg 04/14/20 21:00 04/15/20 09:11 Apixaban 2.5 Mg Tablet PO 2.5 mg BID ANNE Administration Finasteride 5 mg 04/15/20 09:00 04/15/20 09:11 Finasteride 5 Mg Tab PO 5 mg DAILY ANNE Administration Furosemide 40 mg 04/14/20 21:00 04/15/20 09:11 Furosemide 10 Mg/Ml 4 Ml Vial IV 40 mg Q12HR ANNE Administration Gabapentin 800 mg 04/14/20 16:00 04/15/20 09:11 Gabapentin 400 Mg Cap PO 800 mg TID ANNE Administration Insulin Aspart 0 unit 04/15/20 07:30 04/15/20 06:30 Insulin Aspart (Novolog) 100 Unit/Ml Vial SQ 1 unit ACHS ANNE Administration Protocol Levofloxacin 750 mg 04/15/20 09:00 04/15/20 09:11 Levofloxacin 750 Mg Tab PO 04/19/20 09:01 750 mg DAILY ANNE Administration Methylprednisolone Sodium Succinate 40 mg 04/14/20 18:15 04/15/20 09:10 Methylprednisolone Sod Succi 40 Mg/Ml 1 Ml Vial IV 40 mg Q8HR ANNE Administration Miscellaneous Information 1 each 04/14/20 11:35 Pneumonia Protocol Utilized 1 Each Misc PO ONCE PRN Per Protocol Valsartan 160 mg 04/14/20 21:00 04/14/20 21:29 Valsartan 160 Mg Tab PO 160 mg HS ANNE Administration Intake and Output 04/14/20 04/15/20 04/15/20 22:59 06:59 14:59 Intake Total 120 50 Output Total 180 600 Balance -60 -550 Intake: Oral 120 50 Output: Urine 180 600 Other: Voiding Method Urinal Urinal Weight 91.1 kg 04/14/20 10:33 04/15/20 01:07 <Shahid Shoemaker - Last Filed: 04/15/20 15:24> History of Present Illness History of present illness: Patient seen and examined. Agree with assessment and plan as above. Chest Xrays show bilateral patchy infiltrates. He admits to cough and SOB for approximately 3 weeks and occassional night sweats "drenching" per patient for a few nights. Has not had much improvement with Lasix outpt. Pulmonology recommendations appreciated. May consider diagnostic and theraputic thoracentesis however defer to pulmonary. BNP not grossly abnormal and Echo showing normal LV function EF 60-65%, diastology difficult to obtain given AFlutter. Continue Lasix and monitor response. Further recommendations to follow. Shahid Shoemaker, DO Physical Exam Vitals: Vital Signs Temp Pulse Pulse Resp BP Pulse Ox 04/15/20 13:17 60 04/15/20 13:05 60 94 L 04/15/20 12:00 74 20 137/62 94 L 04/15/20 11:35 94 L 04/15/20 09:35 58 L 04/15/20 09:21 58 L 04/15/20 08:00 97.6 F 89 25 H 166/72 90 L 04/15/20 04:00 74 20 168/78 95 04/14/20 23:58 97.8 F 56 L 22 140/73 97 04/14/20 20:22 60 04/14/20 20:13 57 L 04/14/20 20:00 97.5 F L 55 L 24 161/66 96 04/14/20 16:26 57 L 04/14/20 16:16 56 L 04/14/20 16:00 97.5 F L 55 L 24 169/75 94 L Intake and Output 04/15/20 04/15/20 04/15/20 06:59 14:59 22:59 Intake Total 50 Output Total 600 350 Balance -550 -350 Intake: Oral 50 Output: Urine 600 350 Other: Voiding Method Urinal Weight 91.1 kg Results 04/14/20 10:33 04/15/20 01:07 Comprehensive Metabolic Panel 04/15/20 Range/Units 01:07 Potassium 4.5 (3.5-5.1) mmol/L Current Medications Generic Name Dose Route Start Last Admin Trade Name Freq PRN Reason Stop Dose Admin Hydrocodone Bitart/Acetaminophen 1 each 04/14/20 11:51 04/15/20 03:22 Hydrocodone/Apap 7.5-325mg 1 Each Tab PO 1 each BID PRN Administration Pain Albuterol/Ipratropium 3 ml 04/14/20 12:00 04/15/20 13:05 Ipratropium-Albuterol 3 Ml Neb INHALATION 3 ml RT-QID ANNE Administration Albuterol/Ipratropium 3 ml 04/14/20 11:35 Ipratropium-Albuterol 3 Ml Neb INHALATION RT-Q4H PRN shortness of breath Amlodipine Besylate 5 mg 04/15/20 09:00 04/15/20 09:11 Amlodipine 5 Mg Tab PO 5 mg DAILY ANNE Administration Apixaban 2.5 mg 04/14/20 21:00 04/15/20 09:11 Apixaban 2.5 Mg Tablet PO 2.5 mg BID ANNE Administration Finasteride 5 mg 04/15/20 09:00 04/15/20 09:11 Finasteride 5 Mg Tab PO 5 mg DAILY ANNE Administration Furosemide 40 mg 04/14/20 21:00 04/15/20 09:11 Furosemide 10 Mg/Ml 4 Ml Vial IV 40 mg Q12HR ANNE Administration Gabapentin 800 mg 04/14/20 16:00 04/15/20 09:11 Gabapentin 400 Mg Cap PO 800 mg TID ANNE Administration Insulin Aspart 0 unit 04/15/20 07:30 04/15/20 12:04 Insulin Aspart (Novolog) 100 Unit/Ml Vial SQ Not Given ACHS ANNE Protocol Levofloxacin 750 mg 04/15/20 09:00 04/15/20 09:11 Levofloxacin 750 Mg Tab PO 04/19/20 09:01 750 mg DAILY ANNE Administration Methylprednisolone Sodium Succinate 40 mg 04/14/20 18:15 04/15/20 09:10 Methylprednisolone Sod Succi 40 Mg/Ml 1 Ml Vial IV 40 mg Q8HR ANNE Administration Miscellaneous Information 1 each 04/14/20 11:35 Pneumonia Protocol Utilized 1 Each Misc PO ONCE PRN Per Protocol Valsartan 160 mg 04/14/20 21:00 04/14/20 21:29 Valsartan 160 Mg Tab PO 160 mg HS ANNE Administration Intake and Output 04/15/20 04/15/20 04/15/20 06:59 14:59 22:59 Intake Total 50 Output Total 600 350 Balance -550 -350 Intake: Oral 50 Output: Urine 600 350 Other: Voiding Method Urinal Weight 91.1 kg 04/14/20 10:33 04/15/20 01:07
--- NOTE | 2020-04-15 10:50 | XR ---
EXAMINATION TYPE: XR chest 2V DATE OF EXAM: 04/15/2020 COMPARISON: 04/14/2020 HISTORY: Shortness of breath TECHNIQUE: Frontal and lateral views of the chest are obtained. FINDINGS: Scattered senescent parenchymal changes noted. Hyperinflation compatible with COPD. Patchy infiltrate right lower lobe as well as scattered throughout the right lung and left suprahilar region persists. Small effusions also noted. Correlate for pneumonia which is essentially stable rel ative to the prior study. Heart size is stable. Mediastinal structures are stable and grossly unremarkable. No evidence for hilar prominence. Degenerative changes dorsal spine. IMPRESSION: 1. Stable features of pneumonia.
[2020-04-15 12:24] LABS: Glucose,Whole Blood 126 mg/dL (75-99)
--- NOTE | 2020-04-15 13:35 | ECHOF ---
Referral Reason:dyspnea MEASUREMENTS -------- HEIGHT: 177.8 cm WEIGHT: 90.7 kg BP: 168/78 IVSd: 1.1 cm (0.6 - 1.1) LVIDd: 5.1 cm (3.9 - 5.3) LVPWd: 1.1 cm (0.6 - 1.1) EDV(Teich): 121 ml IVSs: 1.8 cm LVIDs: 2.9 cm LVPWs: 1.6 cm %IVS Thck: 56 % ESV(Teich): 32 ml EF(Teich): 74 % %FS: 43 % SV(Teich): 89 ml LA Diam: 3.8 cm (2.7 - 3.8) RVIDd: 3.8 cm (< 3.3) Ao Diam: 3.5 cm (2.0 - 3.7) AV Cusp: 1.9 cm (1.5 - 2.6) EPSS: 0.8 cm TR Vmax: 2.84 m/s TR maxP.36 mmHg RAP: 5.00 mmHg RVSP: 37.36 mmHg MV EF SLOPE: 90.11 mm/s (70 - 150) MV EXCURSION: 19.46 mm (> 18.000) FINDINGS -------- This was a technically difficult study with suboptimal views. The left ventricular size is normal. There is borderline concentric left ventricular hypertrophy. Overall left ventricular systolic function is normal with, an EF between 60 - 65 %. The right ventricle is mild to moderately enlarged. The left atrium is normal in size. The right atrium is normal in size. Interatrial and interventricular septum intact. There is mild aortic valve sclerosis. There is trace to mild mitral regurgitation. Mild tricuspid regurgitation present. There is mild pulmonary hypertension. The right ventricular systolic pressure, as measured by Doppler, is 37.36mmHg. The pulmonic valve was not well visualized. The aortic root size is normal. IVC Not well visulized. There is no pericardial effusion. Pleural Effusion with Fibrin. CONCLUSIONS -------- 1. The left ventricular size is normal. 2. There is borderline concentric left ventricular hypertrophy. 3. Overall left ventricular systolic function is normal with, an EF between 60 - 65 %. 4. The right ventricle is mild to moderately enlarged. 5. There is trace to mild mitral regurgitation. 6. Mild tricuspid regurgitation present. 7. There is mild pulmonary hypertension. 8. The right ventricular systolic pressure, as measured by Doppler, is 37.36mmHg. 9. There is no pericardial effusion. 10. Pleural Effusion with Fibrin. BINDERY OPERATOR: Megha Doran RDCS
[2020-04-15 15:07] LABS: Glucose,Whole Blood 201 mg/dL (75-99)
[2020-04-15 17:00] LABS: Glucose,Whole Blood 148 mg/dL (75-99)
--- NOTE | 2020-04-15 17:13 | P.PN ---
Subjective Progress Note Date: 04/15/20 Principal diagnosis: Acute on chronic hypoxic respiratory failure secondary to chronic pulmonary fibrosis and acute diastolic congestive heart failure 84-year-old male patient came into the emergency department because of worsening shortness of breath. He has been progressively getting more short of breath over the past few days. Developed some increased swelling in lower extremities bilaterally. The patient is known to me from the office. I was working up this patient for shortness of breath and I've also worked with Dr. Mckee from cardiology in regards to his problem. The patient was diagnosed having a new onset atrial fibrillation which we thought was contributing to shortness of breath. He did have atrial fibrillation/flutter. Note that during this current admission, he started having symptoms of exertional dyspnea and orthopnea along with lower extremity edema. In the ED, the patient tested negative for coronary bypass, 19. He had a wet second of 8.2 with a hemoglobin of 12.8. Platelet count is at 446. Note that the patient had a proBNP level of 1100. His BUN is 28 with a creatinine of 0.7. His chest x-ray showed chronic lung disease/fibrosis in addition to that there was increased pulmonary infiltration and pleural effusion and suspected CHF/interstitial edema on top of his chronic lung disease. In summary, this patient has been struggling with shortness of breath for quite some time. He shortness of breath started getting worse as of January 2020. 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 He has not used any pulmonary respiratory precautions. His FEV1 was in order of 50% of predicted with a diffusion capacity of 58% of predicted. This is based on the pulmonary function test from July 2015. No TB exposure. His PPD skin test was negative. He has also recovered from a bout of shingles in his left upper extremity which has less with significant amount of neuropathic pain in the involved area. I worked him up with another CAT scan of the chest that was done in January 2020 and the CAT scan showed essentially silicosis and abnormal pulmonary opacities that have not changed compared to previous evaluation from 2012. Nevertheless, there were small bilateral pleural effusion and he did demonstrate swelling in lower extremities and I started him on Lasix I referred him to cardiology for further identified that the patient was having a fibrillation/flutter. The patient was requiring oxygen.. Most recent echocardiogram that was done on 02/08/2020 showed a preserved LV function with an ejection fraction of 50-55%. He had mild concentric LVH, RV was within normal limits, there was mild aortic sclerosis and aortic root was measuring 4.1 cm without evidence of pericardial effusion. Reevaluated today on 04/15/20, patient is sitting, resting at a bedside chair, he tells me that his shortness of breath is much improved. Patient is known to have history of chronic silicosis and occupational pneumoconiosis with pulmonary fibrosis. His last ultrasound showed good sized pocket in the left pleural space, however the patient is responding well to diuretics, and I would hold on thoracentesis for now. CBC is relatively normal left lites are normal patient tested negative for covid 19 Objective - Vital Signs Vital signs: Vital Signs Temp 97.6 F 04/15/20 08:00 Pulse 60 04/15/20 13:17 Resp 20 04/15/20 12:00 BP 137/62 04/15/20 12:00 Pulse Ox 94 L 04/15/20 13:05 Intake & Output 04/14/20 04/15/20 04/15/20 18:59 06:59 18:59 Intake Total 220 50 240 Output Total 500 780 350 Balance -280 -730 -110 Weight 90.718 kg 91.1 kg Intake: Intake, IV Titration 100 Amount Levofloxacin 750Mg-D5w 100 Pmx 750 mg In Dextrose/ Water 1 150ml.bag @ 100 mls/hr IVPB ONCE STA Rx#: [id number] Oral 120 50 240 Output: Urine 500 780 350 Other: Voiding Method Urinal - Exam Blood pressure 168/78 heart rate 58 afebrile and maintaining oxygen saturation on nasal cannula. CONSTITUTIONAL: Revealed a 84-year-old white male in no distress. On few liters nasal cannula. HEENT: Head is normocephalic. Pupils are equal, round. Sclerae anicteric. Mucous membranes of the mouth are moist. No JVD. No carotid bruit. CHEST EXAMINATION: Back of the and rhonchi noted at the bases. HEART EXAMINATION: Regular rate and rhythm. S1, S2 heard. No murmurs, gallops or rub. ABDOMEN: Soft, nontender. Positive bowel sounds. EXTREMITIES: 2+ peripheral pulses, trace bilateral lower extremity edema and no calf tenderness. NEUROLOGIC EXAMINATION: Patient is awake, alert and oriented x3. Psychiatric: Normal mood, affect and normal mental status examination. - Labs CBC & Chem 7: 04/14/20 10:33 04/15/20 01:07 Labs: Abnormal Lab Results - Last 24 Hours (Table) 04/14/20 04/14/20 04/15/20 Range/Units 10:33 10:33 06:01 POC Glucose (mg/dL) 140 H (75-99) mg/dL Ferritin 331.7 H (22.0-322.0) ng/mL Procalcitonin 0.10 H (0.02-0.09) ng/mL 04/15/20 04/15/20 04/15/20 Range/Units 12:02 15:04 16:48 POC Glucose (mg/dL) 126 H 201 H 148 H (75-99) mg/dL Ferritin (22.0-322.0) ng/mL Procalcitonin (0.02-0.09) ng/mL Microbiology - Last 24 Hours (Table) 04/14/20 11:56 Blood Culture - Preliminary Blood No Growth after 24 hours Assessment and Plan Assessment: Impression: Acute on chronic hypoxic respiratory failure secondary to occupational pneumoconiosis, pleural effusion, and suspect acute diastolic congestive heart failure. History of silicosis with chronic fibrotic changes in the lungs. History of diverticular disease. Chronic atrial fibrillation. Recommendation: Continue Lasix as the patient is improving. Continue steroids. Continue updrafts. Continue empiric antibiotics. Will consider thoracentesis only the patient doesn't improve much with diuresis. We'll continue to follow. Time with Patient: Less than 30
[2020-04-15 20:20] LABS: Glucose,Whole Blood 172 mg/dL (75-99)
[2020-04-15] MEDS: VALSARTAN 160 MG TAB PO SCH (22:09)
--- NOTE | 2020-04-15 23:03 | P.HPIM ---
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 Chronic stable medical conditions include COPD, osteoarthritis, silicosis, pneumoconiosis, atrial flutter fibrillation, chronic fibrosis and restrictive lung disease, chronic back pain, number spine stability to, diverticulosis, due to third of the right lung removed. Patient presents with progressively increasing short of breath going on at least much worse with the last 2 weeks. Increasing edema in the lower extremity. No cough no fever. Decreased appetite. 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 Drinks a glass of wine daily. . Does use a walker Physical examination: VITAL SIGNS: 99.1, 66, 16, 112/66, 91% room air GENERAL: BMI 28.8, sitting up, short of breath. EYES: Pupils equal. Conjunctiva normal. HEENT: External appearance of nose and ears normal, oral cavity grossly normal. NECK: Neck vein graced; masses not palpable. HEART: First and second heart sounds are normal; edema present. LUNGS: Respiratory rate increased, right basal crackles. ABDOMEN: Soft, nontender, liver spleen not palpable, no masses palpable. PSYCH: Alert and oriented x3; mood and affect normal. MUSCULAR skeletal: Evidence of OA NEUROLOGICAL: Cranial nerves grossly intact; no facial asymmetry, power and se nsation grossly intact. LYMPHATICS: No lymph nodes palpable in the axilla and neck INVESTIGATIONS, reviewed in the clinical context: White count 8.2 hemoglobin 12.8 platelets 446 potassium 4.4 creatinine 0.78 LDH 941 CRP 47.9, pro calcitonin 0.10, proBNP-1100 Coronavirus PCR-not detected EKG tracing personally reviewed by me- atrial flutter with 2 dose to 1 conduction Chest x-ray film personally reviewed by me-the report includes-large left upper lobe mass with bilateral areas of consolidation and pleural thickening and effusion. Progressed from the previous exam. Assessment: -Acute congestive heart exacerbation from diastolic dysfunction. 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 Pleural effusion -Possible pneumonia. Cover for gram-negative bacteria. Plan: Patient started on IV Lasix. Eyes and was being monitored. Home medications resumed. Also on IV steroids. Cardiology and pulmonary consulted. Tommy reyes closely. Repeat proBNP in the morning. Levaquin added. By pulmonary. Repeat labs BnP in the morning. Past Medical History Past Medical History: COPD, Osteoarthritis (OA), Prostate Disorder, Respiratory Disorder Additional Past Medical History / Comment(s): Silicosis, pneumoconiosis, A. 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 BOWEL RESECTION WITH COLOSTOMY 11/2014, [facility] PROCEDURES R/T INFECTION IN ABDOMINAL WOUND, 08-15-15 reversal of colostomy/sigmoid resection/lysis of adhesions. Past Anesthesia/Blood Transfusion Reactions: No Reported Reaction Past Psychological History: No Psychological Hx Reported Smoking Status: Never smoker Past Alcohol Use History: Daily Additional Past Alcohol Use History / Comment(s): 1 GLASS OF WINE WITH DINNER. Past Drug Use History: None Reported - Past Family History Mother Family Medical History: Cancer, Dementia Additional Family Medical History / Comment(s): breast cancer, heart murmur. lives to be in her 80's. Father Family Medical History: Diabetes Mellitus Additional Family Medical History / Comment(s): at age 93 Medications and Allergies Home Medications Medication Instructions Recorded Confirmed Type Dutasteride [Avodart] 0.5 mg PO DAILY 03/27/14 04/14/20 History amLODIPine BESYLATE [Norvasc] 5 mg PO DAILY 03/27/14 04/14/20 History Multivit-Min/FA/Lycopene/Lut 1 tab PO DAILY 10/11/14 04/14/20 History [Centrum Silver Tablet] Turmeric Root Extract [Turmeric] 500 mg PO DAILY 10/11/14 04/14/20 History Vits A,C,E/Lutein/Minerals 1 tab PO DAILY 10/11/14 04/14/20 History [Ocuvite with Lutein Tablet] Gabapentin [Neurontin] 800 mg PO TID 12/10/14 04/14/20 History Albuterol Nebulized [Ventolin 2.5 mg INHALATION RT-QID PRN 12/11/14 04/14/20 History Nebulized] Krill Oil 500 mg PO DAILY 01/30/19 04/14/20 History Apixaban [Eliquis] 2.5 mg PO BID 04/14/20 04/14/20 History Furosemide [Lasix] 40 mg PO DAILY 04/14/20 04/14/20 History HYDROcodone/APAP 7.5-325MG [[place] 1 tab PO BID PRN 04/14/20 04/14/20 History 7.5-325] Valsartan [Diovan] 160 mg PO HS 04/14/20 04/14/20 History Allergies Allergy/AdvReac Type Severity Reaction Status Date / Time Penicillins Allergy Rash/Hives Verified 04/14/20 11:40 Sulfa (Sulfonamide Allergy Rash/Hives Verified 04/14/20 11:40 Antibiotics) Physical Exam Vitals: Vital Signs Temp Pulse Pulse Resp BP BP Pulse Ox 04/15/20 09:35 58 L 04/15/20 09:21 58 L 04/15/20 04:00 74 20 168/78 95 04/14/20 23:58 97.8 F 56 L 22 140/73 97 04/14/20 20:22 60 04/14/20 20:13 57 L 04/14/20 20:00 97.5 F L 55 L 24 161/66 96 04/14/20 16:26 57 L 04/14/20 16:16 56 L 04/14/20 16:00 97.5 F L 55 L 24 169/75 94 L 04/14/20 13:41 97 F L 54 L 19 151/66 95 04/14/20 11:57 97.3 F L 04/14/20 11:24 53 L 20 145/83 95 04/14/20 11:01 53 L 04/14/20 10:53 54 L Intake and Output 04/14/20 04/15/20 04/15/20 22:59 06:59 14:59 Intake Total 120 50 Output Total 180 600 Balance -60 -550 Intake: Oral 120 50 Output: Urine 180 600 Other: Voiding Method Urinal Urinal Weight 91.1 kg Results CBC & Chem 7: 04/14/20 10:33 04/15/20 01:07 Labs: Abnormal Lab Results - Last 24 Hours (Table) 04/14/20 04/14/20 04/14/20 Range/Units 10:33 10:33 10:33 RBC 5.92 H (4.30-5.90) m/uL Hgb 12.8 L (13.0-17.5) gm/dL MCV 72.7 L (80.0-100.0) fL MCH 21.6 L (25.0-35.0) pg MCHC 29.7 L (31.0-37.0) g/dL RDW 17.2 H (11.5-15.5) % Lymphocytes # 0.4 L (1.0-4.8) k/uL Carbon Dioxide 34 H (22-30) mmol/L BUN 28 H (9-20) mg/dL Glucose 143 H (74-99) mg/dL POC Glucose (mg/dL) (75-99) mg/dL Ferritin 331.7 H (22.0-322.0) ng/mL AST 65 H (17-59) U/L Alkaline Phosphatase 139 H (38-126) U/L Lactate Dehydrogenase 941 H (313-618) U/L C-Reactive Protein 47.9 H (<10.0) mg/L Total Protein 8.5 H (6.3-8.2) g/dL Procalcitonin (0.02-0.09) ng/mL 04/14/20 04/15/20 Range/Units 10:33 06:01 RBC (4.30-5.90) m/uL Hgb (13.0-17.5) gm/dL MCV (80.0-100.0) fL MCH (25.0-35.0) pg MCHC (31.0-37.0) g/dL RDW (11.5-15.5) % Lymphocytes # (1.0-4.8) k/uL Carbon Dioxide (22-30) mmol/L BUN (9-20) mg/dL Glucose (74-99) mg/dL POC Glucose (mg/dL) 140 H (75-99) mg/dL Ferritin (22.0-322.0) ng/mL AST (17-59) U/L Alkaline Phosphatase (38-126) U/L Lactate Dehydrogenase (313-618) U/L C-Reactive Protein (<10.0) mg/L Total Protein (6.3-8.2) g/dL Procalcitonin 0.10 H (0.02-0.09) ng/mL Thrombosis Risk Factor Assmnt - Choose All That Apply Any of the Below Risk Factors Present?: Yes Each Factor Represents 1 point: Abnormal pulmonary function (COPD) Other Risk Factors: Yes Each Risk Factor Represents 3 Points: Age 75 years or older Thrombosis Risk Factor Assessment Total Risk Factor Score: 4 Thrombosis Risk Factor Assessment Level: Moderate Risk
[2020-04-16 06:21] LABS: Glucose,Whole Blood 144 mg/dL (75-99)
[2020-04-16] MEDS: INSULIN ASPART (NovoLOG) 100 UNIT/ML VIAL SQ SCH ×4 (06:53→20:45)
[2020-04-16] MEDS: GABAPENTIN 400 MG CAP PO SCH ×3 (08:17→21:16)
[2020-04-16] MEDS: FUROSEMIDE 10 MG/ML 4 ML VIAL IV SCH (08:17)
[2020-04-16] MEDS: methylPREDNISolone SOD SUCCI 40 MG/ML 1 ML VIAL IV SCH ×2 (08:17→17:02)
[2020-04-16] MEDS: APIXABAN 2.5 MG TABLET PO SCH ×2 (08:18→21:16)
[2020-04-16] MEDS: amLODIPine 5 MG TAB PO SCH (08:18)
[2020-04-16] MEDS: LEVOFLOXACIN 750 MG TAB PO SCH (08:18)
[2020-04-16] MEDS: FINASTERIDE 5 MG TAB PO SCH (08:18)
[2020-04-16 08:27] VITALS: RESP 16
[2020-04-16] MEDS: IPRATROPIUM-ALBUTEROL 3 ML NEB INHALATION SCH ×4 (08:34→21:04)
[2020-04-16 12:13] LABS: Glucose,Whole Blood 122 mg/dL (75-99)
--- NOTE | 2020-04-16 12:27 | P.PN ---
<[place],Zaida Buchanan - Last Filed: 04/16/20 12:22> Subjective HISTORY OF PRESENTING ILLNESS This is a pleasant 84-year-old past medical history significant for right lobectomy secondary silicosis 1987, hypertension and atrial flutter on eliquis. He follows in the office with Dr. Figueroa. He is seen and examined sitting up in bed eating breakfast. He states overall he is feeling better and his breathing has impoved since admission. Unclear whether the improvement is from diuretics, steroids or antibiotics. He denies chest pain, dizziness or palpitations. Blood pressure 154/67, heart rate 56 afebrile and maintaining oxygen saturation on nasal cannula. Laboratory data reviewed, sodium 136, potassium 5.0, creatinine 1.07 and normal at NT proBNP 1010. Ultrasound of the chest revealed a sizable pleural effusion on the left 11.1 cm. Urine output on IV diuretics not clinically significant, in fact he states he was urinating more at home. PHYSICAL EXAMINATION CONSTITUTIONAL: No apparent distress. HEENT: Head is normocephalic. Pupils are equal, round. Sclerae anicteric. Mucous membranes of the mouth are moist. No JVD. No carotid bruit. CHEST EXAMINATION: Scattered rhonchi, bibasilar rales and expiratory wheeze. No chest wall tenderness is noted on palpation or with deep breathing. HEART EXAMINATION: Regular rate and rhythm. S1, S2 heard. No murmurs, gallops or rub. EXTREMITIES: 2+ peripheral pulses, trace bilateral lower extremity edema and no calf tenderness. ASSESSMENT Shortness of breath, multi-factorial. Bilateral pleural effusions Typical atrial flutter with controlled rate History of silicosis s/p lobectomy with lung fibrosis PLAN Increase IV lasix to 60 mg BID. Further recommendations to follow based on clinical course. Nurse Practitioner note has been reviewed, I agree with a documented findings and plan of care. Patient was seen and examined. Objective - Vital Signs Vital signs: Vital Signs Temp 96.7 F L 04/16/20 08:00 Pulse 56 L 04/16/20 12:01 Resp 16 04/16/20 12:00 BP 154/67 04/16/20 08:00 Pulse Ox 96 04/16/20 08:00 Intake & Output 04/15/20 04/16/20 04/16/20 18:59 06:59 18:59 Intake Total 840 300 Output Total 575 600 400 Balance 265 -300 -400 Weight 90.3 kg Intake: Oral 840 300 Output: Urine 575 600 400 Other: Voiding Method Urinal Urinal # Voids 1 2 - Labs CBC & Chem 7: 04/14/20 10:33 04/16/20 09:15 Labs: Abnormal Lab Results - Last 24 Hours (Table) 04/15/20 04/15/20 04/15/20 Range/Units 12:02 15:04 16:48 Sodium (137-145) mmol/L Chloride (98-107) mmol/L Carbon Dioxide (22-30) mmol/L BUN (9-20) mg/dL Glucose (74-99) mg/dL POC Glucose (mg/dL) 126 H 201 H 148 H (75-99) mg/dL 04/15/20 04/16/20 04/16/20 Range/Units 20:18 06:20 09:15 Sodium 136 L (137-145) mmol/L Chloride 94 L (98-107) mmol/L Carbon Dioxide 36 H (22-30) mmol/L BUN 42 H (9-20) mg/dL Glucose 135 H (74-99) mg/dL POC Glucose (mg/dL) 172 H 144 H (75-99) mg/dL 04/16/20 Range/Units 12:10 Sodium (137-145) mmol/L Chloride (98-107) mmol/L Carbon Dioxide (22-30) mmol/L BUN (9-20) mg/dL Glucose (74-99) mg/dL POC Glucose (mg/dL) 122 H (75-99) mg/dL Microbiology - Last 24 Hours (Table) 04/14/20 11:56 Blood Culture - Preliminary Blood No Growth after 24 hours <Shahid Shoemaker - Last Filed: 04/16/20 12:50> Subjective Patient admits to not having much urine outpt with his Lasix, less than at home however feels better these last 2 days. We will try increased dose of Lasix and monitor response, Cr. Improvement in respiratory status may be more related to steroids and inhalers. Appreciated pulmonology recommendations. Shahid Shoemaker DO Objective - Vital Signs Vital signs: Vital Signs Temp 96.7 F L 04/16/20 08:00 Pulse 56 L 04/16/20 12:01 Resp 16 11/24/20 12:00 BP 154/67 04/16/20 08:00 Pulse Ox 96 04/16/20 08:00 Intake & Output 04/15/20 04/16/20 04/16/20 18:59 06:59 18:59 Intake Total 840 300 Output Total 575 600 400 Balance 265 -300 -400 Weight 90.3 kg Intake: Oral 840 300 Output: Urine 575 600 400 Other: Voiding Method Urinal Urinal # Voids 1 2 - Labs CBC & Chem 7: 04/14/20 10:33 04/16/20 09:15 Labs: Abnormal Lab Results - Last 24 Hours (Table) 04/15/20 04/15/20 04/15/20 Range/Units 15:04 16:48 20:18 Sodium (137-145) mmol/L Chloride (98-107) mmol/L Carbon Dioxide (22-30) mmol/L BUN (9-20) mg/dL Glucose (74-99) mg/dL POC Glucose (mg/dL) 201 H 148 H 172 H (75-99) mg/dL 04/16/20 04/16/20 04/16/20 Range/Units 06:20 09:15 12:10 Sodium 136 L (137-145) mmol/L Chloride 94 L (98-107) mmol/L Carbon Dioxide 36 H (22-30) mmol/L BUN 42 H (9-20) mg/dL Glucose 135 H (74-99) mg/dL POC Glucose (mg/dL) 144 H 122 H (75-99) mg/dL Microbiology - Last 24 Hours (Table) 04/14/20 11:56 Blood Culture - Preliminary Blood No Growth after 24 hours
[2020-04-16 17:00] LABS: Glucose,Whole Blood 132 mg/dL (75-99)
--- NOTE | 2020-04-16 17:33 | P.PN ---
Subjective Progress Note Date: 04/16/20 Principal diagnosis: Acute on chronic hypoxic respiratory failure secondary to chronic pulmonary fibrosis and acute diastolic congestive heart failure 84-year-old male patient came into the emergency department because of worsening shortness of breath. He has been progressively getting more short of breath over the past few days. Developed some increased swelling in lower extremities bilaterally. The patient is known to me from the office. I was working up this patient for shortness of breath and I've also worked with Dr. Mckee from cardiology in regards to his problem. The patient was diagnosed having a new onset atrial fibrillation which we thought was contributing to shortness of breath. He did have atrial fibrillation/flutter. Note that during this current admission, he started having symptoms of exertional dyspnea and orthopnea along with lower extremity edema. In the ED, the patient tested negative for coronary bypass, 19. He had a wet second of 8.2 with a hemoglobin of 12.8. Platelet count is at 446. Note that the patient had a proBNP level of 1100. His BUN is 28 with a creatinine of 0.7. His chest x-ray showed chronic lung disease/fibrosis in addition to that there was increased pulmonary infiltration and pleural effusion and suspected CHF/interstitial edema on top of his chronic lung disease. In summary, this patient has been struggling with shortness of breath for quite some time. He shortness of breath started getting worse as of January 2020. 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 He has not used any pulmonary respiratory precautions. His FEV1 was in order of 50% of predicted with a diffusion capacity of 58% of predicted. This is based on the pulmonary function test from July 2015. No TB exposure. His PPD skin test was negative. He has also recovered from a bout of shingles in his left upper extremity which has less with significant amount of neuropathic pain in the involved area. I worked him up with another CAT scan of the chest that was done in January 2020 and the CAT scan showed essentially silicosis and abnormal pulmonary opacities that have not changed compared to previous evaluation from 2012. Nevertheless, there were small bilateral pleural effusion and he did demonstrate swelling in lower extremities and I started him on Lasix I referred him to cardiology for further identified that the patient was having a fibrillation/flutter. The patient was requiring oxygen.. Most recent echocardiogram that was done on 02/08/2020 showed a preserved LV function with an ejection fraction of 50-55%. He had mild concentric LVH, RV was within normal limits, there was mild aortic sclerosis and aortic root was measuring 4.1 cm without evidence of pericardial effusion. Reevaluated today on 04/15/20, patient is sitting, resting at a bedside chair, he tells me that his shortness of breath is much improved. Patient is known to have history of chronic silicosis and occupational pneumoconiosis with pulmonary fibrosis. His last ultrasound showed good sized pocket in the left pleural space, however the patient is responding well to diuretics, and I would hold on thoracentesis for now. CBC is relatively normal left lites are normal patient tested negative for covid 19 Reevaluated today on 04/16/20, patient seems to be doing better today, breathing easier today, remains on 3 L nasal cannula, on physical examination he has very minimal fine crackles at the bases. Echocardiogram showed ejection fraction of 60-65%. No need for thoracentesis, patient could be considered for discharge planning and follow-up with Dr. Elliott on outpatient basis. Objective - Vital Signs Vital signs: Vital Signs Temp 96.7 F L 04/16/20 08:00 Pulse 57 L 04/16/20 16:00 Resp 16 04/16/20 16:00 BP 128/58 04/16/20 16:00 Pulse Ox 89 L 04/16/20 16:00 Intake & Output 04/15/20 04/16/20 04/16/20 18:59 06:59 18:59 Intake Total 840 300 540 Output Total 896 375 7140 Balance 265 -300 -460 Weight 90.3 kg Intake: Oral 840 300 540 Output: Urine 316 038 [id number] Other: Voiding Method Urinal Urinal # Voids 1 1 - Exam Blood pressure 168/78 heart rate 58 afebrile and maintaining oxygen saturation on nasal cannula. CONSTITUTIONAL: Revealed a 84-year-old white male in no distress. On few liters nasal cannula. HEENT: Head is normocephalic. Pupils are equal, round. Sclerae anicteric. Mucous membranes of the mouth are moist. No JVD. No carotid bruit. CHEST EXAMINATION: Back of the and rhonchi noted at the bases. HEART EXAMINATION: Regular rate and rhythm. S1, S2 heard. No murmurs, gallops or rub. ABDOMEN: Soft, nontender. Positive bowel sounds. EXTREMITIES: 2+ peripheral pulses, trace bilateral lower extremity edema and no calf tenderness. NEUROLOGIC EXAMINATION: Patient is awake, alert and oriented x3. Psychiatric: Normal mood, affect and normal mental status examination. - Labs CBC & Chem 7: 04/14/20 10:33 04/16/20 09:15 Labs: Abnormal Lab Results - Last 24 Hours (Table) 04/15/20 04/16/20 04/16/20 Range/Units 20:18 06:20 09:15 Sodium 136 L (137-145) mmol/L Chloride 94 L (98-107) mmol/L Carbon Dioxide 36 H (22-30) mmol/L BUN 42 H (9-20) mg/dL Glucose 135 H (74-99) mg/dL POC Glucose (mg/dL) 172 H 144 H (75-99) mg/dL 04/16/20 04/16/20 Range/Units 12:10 16:52 Sodium (137-145) mmol/L Chloride (98-107) mmol/L Carbon Dioxide (22-30) mmol/L BUN (9-20) mg/dL Glucose (74-99) mg/dL POC Glucose (mg/dL) 122 H 132 H (75-99) mg/dL Microbiology - Last 24 Hours (Table) 04/14/20 11:56 Blood Culture - Preliminary Blood No Growth after 48 hours Assessment and Plan Assessment: Impression: Acute on chronic hypoxic respiratory failure secondary to occupational pneumoconiosis, pleural effusion, and suspect acute diastolic congestive heart failure. History of silicosis with chronic fibrotic changes in the lungs. History of diverticular disease. Chronic atrial fibrillation. Recommendation: Consider home oxygen. Continue Lasix as the patient is improving. Continue steroids. Continue updrafts. Continue empiric antibiotics. Can switch to oral No need for thoracentesis. Time with Patient: Less than 30
--- NOTE | 2020-04-16 19:17 | P.PN ---
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 Chronic stable medical conditions include COPD, osteoarthritis, silicosis, pneumoconiosis, atrial flutter fibrillation, chronic fibrosis and restrictive lung disease, chronic back pain, , diverticulosis, 2/3 of the right lung removed. Patient presents with progressively increasing short of breath going on at least much worse with the last 2 weeks. Increasing edema in the lower extremity. No cough no fever. Decreased appetite. No fever no chills Admitted with acute CHF exacerbation with diastolic dysfunction EF 60-65%. Put on IV Lasix. Also progression of chronic restrictive lung disease from fibrosis and silicosis. Also possible pneumonia for which patient is on Levaquin. Today-sitting up in bed, short of breath. Slight cough. Tired. On IV Lasix. Oral intake fair Review of systems: Was done for constitutional, cardiovascular, GI, pulmonary. relevant finding as above Active Medications Hydrocodone Bitart/Acetaminophen (Hydrocodone/Apap 7.5-325mg 1 Each Tab) 1 each PO BID PRN PRN Reason: Pain Last Admin: 04/15/20 03:22 Dose: 1 each Documented by: Albuterol/Ipratropium (Ipratropium-Albuterol 3 Ml Neb) 3 ml INHALATION RT-QID [facility] Last Admin: 04/16/20 15:29 Dose: 3 ml Documented by: Albuterol/Ipratropium (Ipratropium-Albuterol 3 Ml Neb) 3 ml INHALATION RT-Q4H PRN PRN Reason: shortness of breath Amlodipine Besylate (Amlodipine 5 Mg Tab) 5 mg PO DAILY [facility] Last Admin: 04/16/20 08:18 Dose: 5 mg Documented by: Apixaban (Apixaban 2.5 Mg Tablet) 2.5 mg PO BID [facility] Last Admin: 04/16/20 08:18 Dose: 2.5 mg Documented by: Finasteride (Finasteride 5 Mg Tab) 5 mg PO DAILY [facility] Last Admin: 04/16/20 08:18 Dose: 5 mg Documented by: Furosemide (Furosemide 10 Mg/Ml 10 Ml Vial) 60 mg IV Q12HR [facility] Gabapentin (Gabapentin 400 Mg Cap) 800 mg PO TID [facility] Last Admin: 04/16/20 17:01 Dose: 800 mg Documented by: Insulin Aspart (Insulin Aspart (Novolog) 100 Unit/Ml Vial) 0 unit SQ ACHS [facility]; Protocol Last Admin: 04/16/20 16:59 Dose: Not Given Documented by: Levofloxacin (Levofloxacin 750 Mg Tab) 750 mg PO DAILY [facility] Stop: 04/19/20 09:01 Last Admin: 04/16/20 08:18 Dose: 750 mg Documented by: Methylprednisolone Sodium Succinate (Methylprednisolone Sod Succi 40 Mg/Ml 1 Ml Vial) 40 mg IV Q8HR [facility] Last Admin: 04/16/20 17:02 Dose: 40 mg Documented by: Miscellaneous Information (Pneumonia Protocol Utilized 1 Each Misc) 1 each PO ONCE PRN PRN Reason: Per Protocol Valsartan (Valsartan 160 Mg Tab) 160 mg PO HS [facility] Last Admin: 04/15/20 22:09 Dose: 160 mg Documented by: Physical examination: VITAL SIGNS: 96.7, 58, 22, 154/67, 96% on 3 L GENERAL: Sitting up in bed,-, short of breath. EYES: Pupils equal. Conjunctiva normal. NECK: Neck vein raised; masses not palpable. HEART: First and second heart sounds are normal; edema present. LUNGS: Respiratory rate increased, right basal crackles. ABDOMEN: Soft, nontender, liver spleen not palpable, no masses palpable. PSYCH: Alert and oriented x3; mood and affect anxious MUSCULAR skeletal: Evidence of OA INVESTIGATIONS, reviewed in the clinical context: Potassium 5 creatinine 1.07, proBNP 1010 Previous testing White count 8.2 hemoglobin 12.8 platelets 446 potassium 4.4 creatinine 0.78 LDH 941 CRP 47.9, pro calcitonin 0.10, proBNP-1100 Coronavirus PCR-not detected EKG tracing personally reviewed by me- atrial flutter with 2 dose to 1 conduction Chest x-ray film personally reviewed by me-the report includes-large left upper lobe mass with bilateral areas of consolidation and pleural thickening and effusion. Progressed from the previous exam. Assessment: -Acute congestive heart exacerbation from diastolic dysfunction. EF 60-65%-slow to respond -Chronic restrictive lung disease, with fibrosis related to silicosis. 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 Cover for gram-negative bacteria. Plan: Continue with IV Lasix 60 mg every 12, IV Solu-Medrol. Follow lites closely. Patient is on eliquis. Keep a close eyes on electrolytes.
[2020-04-16 20:25] LABS: Glucose,Whole Blood 161 mg/dL (75-99)
[2020-04-16] MEDS: FUROSEMIDE 10 MG/ML 10 ML VIAL IV SCH (21:16)
[2020-04-17] MEDS: VALSARTAN 160 MG TAB PO SCH (01:10)
[2020-04-17] MEDS: methylPREDNISolone SOD SUCCI 40 MG/ML 1 ML VIAL IV SCH ×2 (01:10→08:49)
[2020-04-17 06:27] LABS: Glucose,Whole Blood 160 mg/dL (75-99)
[2020-04-17] MEDS: INSULIN ASPART (NovoLOG) 100 UNIT/ML VIAL SQ SCH ×2 (06:35→13:27)
--- NOTE | 2020-04-17 07:28 | XR ---
EXAMINATION TYPE: XR chest 1V DATE OF EXAM: 04/17/2020 CLINICAL HISTORY: Difficulty breathing and weakness progress study. TECHNIQUE: Single AP portable frontal view of the chest is obtained. COMPARISON: Chest x-ray from 2 days earlier and older studies. CTA chest February 08, 2020. FINDINGS: Cervicothoracic spinal stimulator leads redemonstrated. Bilateral cardiomegaly with small bilateral pleural effusions and central bibasilar opacities again seen. Background right greater than left apical pleural/parenchymal fibrotic changes with hilar retraction redemonstrated. Cholecystecto my clips noted. IMPRESSION: Suspected CHF exacerbation as there is cardiomegaly with small bilateral pleural effusion s and mild to moderate central vascular congestion on background chronic fibrotic changes particularl y right lung apex. Areas of underlying acute infiltrate in the mid to lower lungs cannot be excluded. Correlate clinically. No significant change from most recent x-ray.
[2020-04-17] MEDS: IPRATROPIUM-ALBUTEROL 3 ML NEB INHALATION SCH ×2 (08:21→12:19)
[2020-04-17] MEDS: LEVOFLOXACIN 750 MG TAB PO SCH (08:48)
[2020-04-17] MEDS: FUROSEMIDE 10 MG/ML 10 ML VIAL IV SCH (08:48)
[2020-04-17] MEDS: APIXABAN 2.5 MG TABLET PO SCH (08:48)
[2020-04-17] MEDS: FINASTERIDE 5 MG TAB PO SCH (08:48)
[2020-04-17] MEDS: GABAPENTIN 400 MG CAP PO SCH (08:48)
[2020-04-17] MEDS: amLODIPine 5 MG TAB PO SCH (08:48)
[2020-04-17 08:57] VITALS: BP 111/55; PULSE 63; TEMP 97.4
[2020-04-17 09:44] LABS: Calcium 8.9 mg/dL (8.4-10.2)
[2020-04-17 12:12] LABS: Glucose,Whole Blood 143 mg/dL (75-99)
--- NOTE | 2020-04-17 13:21 | P.PN ---
Subjective Progress Note Date: 04/17/20 HISTORY OF PRESENT ILLNESS: Patient examined at the bedside. He states his breathing has slightly improved. Denies chest pain or pressure. Vital signs are stable. He remains on IV Lasix. Patient states he is being discharged home today with home oxygen. PHYSICAL EXAM: VITAL SIGNS: Reviewed. GENERAL: Well-developed in no acute distress. NECK: Supple. No JVD or thyromegaly LUNGS: Respirations even and unlabored. Lungs diminished. HEART: Regular rate and rhythm. S1 and S2 heard. EXTREMITIES: Normal range of motion. No clubbing or cyanosis. Peripheral pulses intact. 1+ bilateral lower extremity edema ASSESSMENT: Shortness of breath, multi-factorial. Bilateral pleural effusions Typical atrial flutter with controlled rate History of silicosis s/p lobectomy with lung fibrosis PLAN: Pulmonary following. Appreciate recommendations. Transition to oral lasix Patient to follow up outpatient with Dr. Figueroa Nurse practitioner note has been reviewed by physician. Signing provider agrees with the documented findings, assessment, and plan of care. Objective - Vital Signs Vital signs: Vital Signs Temp 97.4 F L 04/17/20 08:00 Pulse 64 04/17/20 08:33 Resp 16 04/17/20 08:00 BP 111/55 04/17/20 08:00 Pulse Ox 93 L 04/17/20 08:00 Intake & Output 04/16/20 04/17/20 04/17/20 18:59 06:59 18:59 Intake Total 540 400 Output Total 1200 300 800 Balance -660 -300 -400 Weight 90.8 kg Intake: Oral 540 400 Output: Urine 1200 300 800 Other: Voiding Method Urinal Urinal Urinal # Voids 1 # Bowel Movements 0 - Labs CBC & Chem 7: 04/14/20 10:33 04/17/20 08:28 Labs: Abnormal Lab Results - Last 24 Hours (Table) 04/16/20 04/16/20 04/17/20 Range/Units 16:52 20:23 06:25 Sodium (137-145) mmol/L Chloride (98-107) mmol/L Carbon Dioxide (22-30) mmol/L BUN (9-20) mg/dL Glucose (74-99) mg/dL POC Glucose (mg/dL) 132 H 161 H 160 H (75-99) mg/dL 04/17/20 04/17/20 Range/Units 08:28 11:52 Sodium 135 L (137-145) mmol/L Chloride 93 L (98-107) mmol/L Carbon Dioxide 37 H (22-30) mmol/L BUN 46 H (9-20) mg/dL Glucose 192 H (74-99) mg/dL POC Glucose (mg/dL) 143 H (75-99) mg/dL Microbiology - Last 24 Hours (Table) 04/14/20 11:56 Blood Culture - Preliminary Blood No Growth after 48 hours
--- NOTE | 2020-04-17 14:14 | P.PN ---
Subjective Progress Note Date: 04/17/20 Principal diagnosis: Acute on chronic hypoxic respiratory failure secondary to chronic pulmonary fibrosis and acute diastolic congestive heart failure 84-year-old male patient came into the emergency department because of worsening shortness of breath. He has been progressively getting more short of breath over the past few days. Developed some increased swelling in lower extremities bilaterally. The patient is known to me from the office. I was working up this patient for shortness of breath and I've also worked with Dr. Mckee from cardiology in regards to his problem. The patient was diagnosed having a new onset atrial fibrillation which we thought was contributing to shortness of breath. He did have atrial fibrillation/flutter. Note that during this current admission, he started having symptoms of exertional dyspnea and orthopnea along with lower extremity edema. In the ED, the patient tested negative for coronary bypass, 19. He had a wet second of 8.2 with a hemoglobin of 12.8. Platelet count is at 446. Note that the patient had a proBNP level of 1100. His BUN is 28 with a creatinine of 0.7. His chest x-ray showed chronic lung disease/fibrosis in addition to that there was increased pulmonary infiltration and pleural effusion and suspected CHF/interstitial edema on top of his chronic lung disease. In summary, this patient has been struggling with shortness of breath for quite some time. He shortness of breath started getting worse as of January 2020. 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 He has not used any pulmonary respiratory precautions. His FEV1 was in order of 50% of predicted with a diffusion capacity of 58% of predicted. This is based on the pulmonary function test from July 2015. No TB exposure. His PPD skin test was negative. He has also recovered from a bout of shingles in his left upper extremity which has less with significant amount of neuropathic pain in the involved area. I worked him up with another CAT scan of the chest that was done in January 2020 and the CAT scan showed essentially silicosis and abnormal pulmonary opacities that have not changed compared to previous evaluation from 2012. Nevertheless, there were small bilateral pleural effusion and he did demonstrate swelling in lower extremities and I started him on Lasix I referred him to cardiology for further identified that the patient was having a fibrillation/flutter. The patient was requiring oxygen.. Most recent echocardiogram that was done on 02/08/2020 showed a preserved LV function with an ejection fraction of 50-55%. He had mild concentric LVH, RV was within normal limits, there was mild aortic sclerosis and aortic root was measuring 4.1 cm without evidence of pericardial effusion. Reevaluated today on 04/15/20, patient is sitting, resting at a bedside chair, he tells me that his shortness of breath is much improved. Patient is known to have history of chronic silicosis and occupational pneumoconiosis with pulmonary fibrosis. His last ultrasound showed good sized pocket in the left pleural space, however the patient is responding well to diuretics, and I would hold on thoracentesis for now. CBC is relatively normal left lites are normal patient tested negative for covid 19 Reevaluated today on 04/16/20, patient seems to be doing better today, breathing easier today, remains on 3 L nasal cannula, on physical examination he has very minimal fine crackles at the bases. Echocardiogram showed ejection fraction of 60-65%. No need for thoracentesis, patient could be considered for discharge planning and follow-up with Dr. Elliott on outpatient basis. The patient was seen today 04/17/2020 in follow-up on the selective care unit. He is doing quite a bit better. No worsening shortness of breath, cough or congestion. He is continued to maintain O2 saturations in the 90s on 3 L/m per nasal cannula. His been afebrile. Hemodynamically stable. Blood culture reveals no growth. Sodium 135. Potassium 5.0. Creatinine 1.01. Remains on IV diuretics, IV Solu-Medrol, Levaquin. Anticoagulated with Eliquis. Objective - Vital Signs Vital signs: Vital Signs Temp 97.4 F L 04/17/20 08:00 Pulse 64 04/17/20 08:33 Resp 16 04/17/20 08:00 BP 111/55 04/17/20 08:00 Pulse Ox 93 L 04/17/20 08:00 Intake & Output 04/16/20 04/17/20 04/17/20 18:59 06:59 18:59 Intake Total 540 400 Output Total 0803 147 0589 Balance -660 -300 -800 Weight 90.8 kg Intake: Oral 540 400 Output: Urine 1918 516 7901 Other: Voiding Method Urinal Urinal Urinal # Voids 1 # Bowel Movements 0 - Exam CONSTITUTIONAL: Revealed a 84-year-old white male in no distress. On 3 liters nasal cannula. HEENT: Head is normocephalic. Pupils are equal, round. Sclerae anicteric. Mucous membranes of the mouth are moist. No JVD. No carotid bruit. CHEST EXAMINATION: Coarse crackles and rhonchi noted at the bases. HEART EXAMINATION: Regular rate and rhythm. S1, S2 heard. No murmurs, gallops or rub. ABDOMEN: Soft, nontender. Positive bowel sounds. EXTREMITIES: 2+ peripheral pulses, trace bilateral lower extremity edema and no calf tenderness. NEUROLOGIC EXAMINATION: Patient is awake, alert and oriented x3. Psychiatric: Normal mood, affect and normal mental status examination. - Labs CBC & Chem 7: 04/14/20 10:33 04/17/20 08:28 Labs: Abnormal Lab Results - Last 24 Hours (Table) 04/16/20 04/16/20 04/17/20 Range/Units 16:52 20:23 06:25 Sodium (137-145) mmol/L Chloride (98-107) mmol/L Carbon Dioxide (22-30) mmol/L BUN (9-20) mg/dL Glucose (74-99) mg/dL POC Glucose (mg/dL) 132 H 161 H 160 H (75-99) mg/dL 04/17/20 04/17/20 Range/Units 08:28 11:52 Sodium 135 L (137-145) mmol/L Chloride 93 L (98-107) mmol/L Carbon Dioxide 37 H (22-30) mmol/L BUN 46 H (9-20) mg/dL Glucose 192 H (74-99) mg/dL POC Glucose (mg/dL) 143 H (75-99) mg/dL Microbiology - Last 24 Hours (Table) 04/14/20 11:56 Blood Culture - Preliminary Blood No Growth after 72 hours Assessment and Plan Assessment: 1 Acute on chronic hypoxic respiratory failure secondary to occupational pneumoconiosis, pleural effusion, and suspect acute diastolic congestive heart failure. 2 History of silicosis with chronic fibrotic changes in the lungs. 3 History of diverticular disease. 4 Chronic atrial fibrillation. Plan: The patient was seen and evaluated by Dr. Her Cleared for discharge from the pulmonary standpoint Evaluate for probable home oxygen Follow up with Dr. Elliott in the office I, the cosigning physician, performed a history & physical examination of the patient. Lungs sounds with coarse crackles and scattered rhonchi and the lateral base. Maintaining good O2 saturations in the 90s on 3 L/m per nasal cannula. I discussed the assessment and plan of care with my nurse practitioner, Cheyenne Bonilla. I attest to the above note as dictated by her.
[2020-04-17] MEDS ORDERED: FUROSEMIDE 40 MG TAB PO SCH (16:00)
--- NOTE | 2020-04-17 16:17 | P.DS ---
Providers Date of admission: 04/14/20 11:35 Expected date of discharge: 04/17/20 Attending physician: Mayo England Consults: 04/14/20 11:09 Consult Physician Urgent Consulting Provider: Pedro Elliott Consult Reason/Comments: dyspnea Do you want consulting provider notified?: Already Contacted 04/14/20 11:36 Consult Physician Urgent Consulting Provider: Edgar Solares Consult Reason/Comments: dyspnea, evaluate for chf Do you want consulting provider notified?: Yes Primary care physician: Best Oconnell [facility] Course: Final diagnosis -Acute congestive heart exacerbation from diastolic dysfunction. 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 Cover for gram-negative bacteria. Discharge disposition Patient is being discharged in a stable condition with guarded prognosis to home. Patient will follow-up with Dr. Oconnell in the outpatient setting upon discharge. Patient also instructed to follow-up with Dr. Figueroa upon discharge. Patient will [facility] with [facility] in the outpatient setting. Total time taken is greater than 35 minutes. History of present illness This is a 84-year-old male who was recently admitted with congestive heart failure acute exacerbation with diastolic dysfunction. Most recent EF is 60- 65%. Patient was placed on IV Lasix and diuresed well and will continue with Lasix in the outpatient setting. She does have progression of his chronic lung disease from fibrosis and silicosis and also being treated for pneumonia. Pulmonary following and patient will continue on Levaquin 500 mg daily for the next 5 days to complete the course. Patient will also continue on a prednisone taper. Patient continued to have low oxygen saturations and is currently 93% on 3 L and will require home oxygen at 3 L for hypoxia due to his lung disease and congestive heart failure. Currently no reports of chest pain, worsening shortne ss of breath, or palpitations. Patient is afebrile. No reports of nausea or vomiting and patient is tolerating diet. Patient will be going home today. Patient will continue with home care in the outpatient setting. Guarded prognosis. On exam vital signs are stable. Temp is 97.4F, pulse is 63, respirations are 16, blood pressure is 111/55, oxygen saturation is 93% on liters via nasal cannula. Cardio S1, S2 are muffled. Respiratory system shows diminished breath sounds at the bases with no wheezing or rhonchi noted. Abdomen is soft and nontender. Nervous system shows no focal deficits. Please refer to medication reconciliation sheet for a list of medications. Patient Condition at Discharge: Stable Plan - Discharge Summary Discharge Rx Participant: No New Discharge Prescriptions: New Ipratropium-Albuterol Nebulize [Duoneb 0.5 mg-3 mg/3 ml Soln] 3 ml INHALATION RT-QID 30 Days #90 ml Ipratropium-Albuterol Nebulize [Duoneb 0.5 mg-3 mg/3 ml Soln] 3 ml INHALATION RT-Q4H PRN ml PRN Reason: shortness of breath Levofloxacin [Levaquin] 750 mg PO DAILY 4 Days #4 tab predniSONE 10 mg PO DIRECTED #30 tab Continue amLODIPine BESYLATE [Norvasc] 5 mg PO DAILY Dutasteride [Avodart] 0.5 mg PO DAILY Vits A,C,E/Lutein/Minerals [Ocuvite with Lutein Tablet] 1 tab PO DAILY Turmeric Root Extract [Turmeric] 500 mg PO DAILY Multivit-Min/FA/Lycopene/Lut [Centrum Silver Tablet] 1 tab PO DAILY Gabapentin [Neurontin] 800 mg PO TID Albuterol Nebulized [Ventolin Nebulized] 2.5 mg INHALATION RT-QID PRN PRN Reason: Shortness Of Breath Krill Oil 500 mg PO DAILY Apixaban [Eliquis] 2.5 mg PO BID HYDROcodone/APAP 7.5-325MG [[place] 7.5-325] 1 tab PO BID PRN PRN Reason: Pain Valsartan [Diovan] 160 mg PO HS Changed Furosemide [Lasix] 40 mg PO BID #0 Discharge Medication List Dutasteride [Avodart] 0.5 mg PO DAILY 03/27/14 [History] amLODIPine BESYLATE [Norvasc] 5 mg PO DAILY 03/27/14 [History] Multivit-Min/FA/Lycopene/Lut [Centrum Silver Tablet] 1 tab PO DAILY 10/11/14 [History] Turmeric Root Extract [Turmeric] 500 mg PO DAILY 10/11/14 [History] Vits A,C,E/Lutein/Minerals [Ocuvite with Lutein Tablet] 1 tab PO DAILY 10/11/14 [History] Gabapentin [Neurontin] 800 mg PO TID 12/10/14 [History] Albuterol Nebulized [Ventolin Nebulized] 2.5 mg INHALATION RT-QID PRN 12/11/14 [History] Krill Oil 500 mg PO DAILY 01/30/19 [History] Apixaban [Eliquis] 2.5 mg PO BID 04/14/20 [History] HYDROcodone/APAP 7.5-325MG [[place] 7.5-325] 1 tab PO BID PRN 04/14/20 [History] Valsartan [Diovan] 160 mg PO HS 04/14/20 [History] Furosemide [Lasix] 40 mg PO BID #0 04/17/20 [Rx] Ipratropium-Albuterol Nebulize [Duoneb 0.5 mg-3 mg/3 ml Soln] 3 ml INHALATION RT-Q4H PRN ml 04/17/20 [Rx] Ipratropium-Albuterol Nebulize [Duoneb 0.5 mg-3 mg/3 ml Soln] 3 ml INHALATION RT-QID 30 Days #90 ml 04/17/20 [Rx] Levofloxacin [Levaquin] 750 mg PO DAILY 4 Days #4 tab 04/17/20 [Rx] predniSONE 10 mg PO DIRECTED #30 tab 04/17/20 [Rx] Follow up Appointment(s)/Referral(s): Joey Oconnell MD [Primary Care Provider] - 1-2 days Ritchie Figueroa MD [STAFF PHYSICIAN] - 1 Week [facility], [NON-STAFF] - Activity/Diet/Wound Care/Special Instructions: Dr. Prater to see prior to discharge Patient requires home oxygen at discharge for hypoxia from CHF Activity Limited until follow-up Follow-up with primary care provider upon discharge Continue with home oxygen and follow-up with pulmonary in the outpatient setting Continue with antibiotics until finished Continue with prednisone until finished Continue current diet Discharge Disposition: HOME WITH HOME HEALTH SERVICES
[2020-04-17 18:42] LABS: Hemoglobin A1C 6.2 % (4.0-6.0)
[2020-04-18] MEDS ORDERED: predniSONE 20 MG TAB PO SCH (09:00)
== END 2020-04-17 16:20 | disposition home health service (06) | DRG 291 ==
LOC: EC 09:34 → 3SCARD 11:35
PROVIDERS: ADMIT Hospitalist; ATTEND Hospitalist
DX: I11.0 Hypertensive heart disease with heart failure (principal); J96.21 Acute and chronic respiratory failure with hypoxia; J15.6 Pneumonia due to other Gram-negative bacteria; I48.20 Chronic atrial fibrillation, unspecified; I48.3 Typical atrial flutter; J44.0 Chronic obstructive pulmonary disease with (acute) lower respiratory infection; B02.29 Other postherpetic nervous system involvement; I50.33 Acute on chronic diastolic (congestive) heart failure; G89.29 Other chronic pain; I70.0 Atherosclerosis of aorta; J62.8 Pneumoconiosis due to other dust containing silica; J84.10 Pulmonary fibrosis, unspecified; J98.4 Other disorders of lung; K57.30 Diverticulosis of large intestine without perforation or abscess without bleeding; L73.9 Follicular disorder, unspecified; M19.91 Primary osteoarthritis, unspecified site; M47.816 Spondylosis without myelopathy or radiculopathy, lumbar region; N40.0 Benign prostatic hyperplasia without lower urinary tract symptoms; Z20.828 Contact with and (suspected) exposure to other viral communicable diseases; Z79.01 Long term (current) use of anticoagulants; Z79.899 Other long term (current) drug therapy; Z80.3 Family history of malignant neoplasm of breast; Z83.3 Family history of diabetes mellitus; Z86.19 Personal history of other infectious and parasitic diseases; Z90.49 Acquired absence of other specified parts of digestive tract; Z90.89 Acquired absence of other organs; Z82.0 Family history of epilepsy and other diseases of the nervous system; Z82.49 Family history of ischemic heart disease and other diseases of the circulatory system; K57.90 Diverticulosis of intestine, part unspecified, without perforation or abscess without bleeding; Z88.0 Allergy status to penicillin; Z88.2 Allergy status to sulfonamides
CPT/HCPCS: 36415; 71045; 71046; 76604; 80048; 80053; 82728; 83036; 83605; 83615; 83735; 83880; 84132; 84145; 84484; 85025; 85610; 85730; 86140; 87040; 87635; 93005; 93306; 94640; 94760; 96365; 96375; 99285

== ENCOUNTER 2020-09-13 09:32 | Inpatient (IN) | payer MEDICARE, OTHER ==
--- NOTE | 2020-09-13 09:52 | ED ---
General Adult HPI - General Stated complaint: AMS Time Seen by Provider: 09/13/20 09:35 Source: patient, EMS, RN notes reviewed Mode of arrival: EMS Limitations: altered mental status, physical limitation - History of Present Illness Initial comments: Patient is a pleasant 84-year-old male presenting to the emergency department general weakness and change in mental status. Patient reportedly is from home. Patient is a poor historian and offers very little history. Patient has no complaints. Unclear onset. Unclear if history of similar symptoms previously. - Related Data Home Medications Medication Instructions Recorded Confirmed Dutasteride [Avodart] 0.5 mg PO DAILY 03/27/14 09/13/20 amLODIPine BESYLATE [Norvasc] 5 mg PO BID 03/27/14 09/13/20 Multivit-Min/FA/Lycopene/Lut 1 tab PO DAILY 10/11/14 09/13/20 [Centrum Silver Tablet] Turmeric Root Extract [Turmeric] 500 mg PO DAILY 10/11/14 09/13/20 Vits A,C,E/Lutein/Minerals 1 tab PO DAILY 10/11/14 09/13/20 [Ocuvite with Lutein Tablet] Gabapentin [Neurontin] 800 mg PO TID 12/10/14 09/13/20 Albuterol Nebulized [Ventolin 2.5 mg INHALATION RT-TID PRN 12/11/14 09/13/20 Nebulized] Krill Oil 500 mg PO DAILY 01/30/19 09/13/20 Apixaban [Eliquis] 2.5 mg PO BID 04/14/20 09/13/20 HYDROcodone/APAP 7.5-325MG [[place] 1 tab PO BID PRN 04/14/20 09/13/20 7.5-325] Valsartan [Diovan] 160 mg PO HS 04/14/20 09/13/20 Furosemide [Lasix] 40 mg PO DAILY 09/13/20 09/13/20 Allergies Allergy/AdvReac Type Severity Reaction Status Date / Time Penicillins Allergy Rash/Hives Verified 09/13/20 10:10 Sulfa (Sulfonamide Allergy Rash/Hives Verified 09/13/20 10:10 Antibiotics) Review of Systems ROS Statement: Those systems with pertinent positive or pertinent negative responses have been documented in the HPI. ROS Other: All systems not noted in ROS Statement are negative. Constitutional: Denies: fever Eyes: Denies: eye pain ENT: Denies: ear pain Respiratory: Denies: dyspnea Cardiovascular: Denies: chest pain, palpitations Endocrine: Denies: heat or cold intolerance Gastrointestinal: Denies: abdominal pain Genitourinary: Denies: dysuria Musculoskeletal: Denies: back pain Skin: Denies: rash Neurological: Reports: as per HPI Past Medical History Past Medical History: COPD, Osteoarthritis (OA), Prostate Disorder, Respiratory Disorder Additional Past Medical History / Comment(s): Silicosis, pneumoconiosis, A. 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 BOWEL RESECTION WITH COLOSTOMY 11/2014, WOUND CENTER PROCEDURES R/T INFECTION IN ABDOMINAL WOUND, 08-15-15 reversal of colostomy/sigmoid resection/lysis of adhesions. Past Anesthesia/Blood Transfusion Reactions: No Reported Reaction Past Psychological History: No Psychological Hx Reported Smoking Status: Never smoker Past Alcohol Use History: Daily Past Drug Use History: None Reported - Past Family History Mother Family Medical History: Cancer, Dementia Additional Family Medical History / Comment(s): breast cancer, heart murmur. lives to be in her 80's. Father Family Medical History: Diabetes Mellitus Additional Family Medical History / Comment(s): at age 93 General Exam Limitations: altered mental status, physical limitation General appearance: alert, in no apparent distress Head exam: Present: atraumatic Eye exam: Present: normal appearance, PERRL Neck exam: Present: normal inspection. Absent: tenderness, meningismus Respiratory exam: Present: normal lung sounds bilaterally Cardiovascular Exam: Present: bradycardia Expanded Peripheral pulses: 2+: Radial (R), Radial (L), Dorsalis Pedis (R), Dorsalis Pedis (L) GI/Abdominal exam: Present: soft. Absent: tenderness Extremities exam: Present: pedal edema. Absent: calf tenderness Neurological exam: Present: alert Expanded Neurological exam: Present: protecting the airway Patient oriented to: Present: person. Absent: place, time Motor strength exam: RUE: 5, LUE: 5, RLE: 5, LLE: 5 Eye Response: (4) open spontaneously Motor Response: (6) obeys commands Verbal Response: (4) confused conversation Psychiatric exam: Present: flat affect Skin exam: Present: normal color Course Vital Signs 09/13/20 09/13/20 09/13/20 09:36 10:38 11:20 Pulse Rate 38 L 36 L 37 L Respiratory 18 18 17 Rate Blood Pressure 127/54 115/85 106/55 O2 Sat by Pulse 90 L 94 L 93 L Oximetry - Reevaluation(s) Reevaluation #1: 09/13/20 11:24 Patient had one blood pressure at 88, otherwise has been stable. Heart rate has dropped as low as into the 20s and patient did have a witnessed as lasting possibly up to 5 seconds. Case was discussed with Dr. Shoemaker with cardiology who will do pacemaker. Family updated. EKG Findings - EKG Comments: EKG Findings:: A. fib with slow ventricular response, rate 37. QRS 118. QT 560. QTC 439. Normal axis. V1 shows RSR pattern. No acute ST change. Medical Decision Making - Medical Decision Making Case also discussed with Dr. Wiggins, who will admit For Dr. Oconnell - Lab Data Result diagrams: 09/13/20 09:48 09/13/20 09:48 Lab Results 09/13/20 09/13/20 09/13/20 Range/Units 09:48 09:48 09:48 WBC 6.2 (3.8-10.6) k/uL RBC 5.11 (4.30-5.90) m/uL Hgb 12.2 L (13.0-17.5) gm/dL Hct 40.0 (39.0-53.0) % MCV 78.3 L (80.0-100.0) fL MCH 23.8 L (25.0-35.0) pg MCHC 30.4 L (31.0-37.0) g/dL RDW 19.3 H (11.5-15.5) % Plt Count 144 L (150-450) k/uL MPV 8.8 Neutrophils % 85 % Lymphocytes % 6 % Monocytes % 8 % Eosinophils % 0 % Basophils % 0 % Neutrophils # 5.3 (1.3-7.7) k/uL Lymphocytes # 0.4 L (1.0-4.8) k/uL Monocytes # 0.5 (0-1.0) k/uL Eosinophils # 0.0 (0-0.7) k/uL Basophils # 0.0 (0-0.2) k/uL Manual Slide Review Performed Hypochromasia Marked Anisocytosis Slight Microcytosis Slight PT 11.6 (9.0-12.0) sec INR 1.1 (<1.2) APTT 30.3 H (22.0-30.0) sec Sodium 142 (137-145) mmol/L Potassium 4.9 (3.5-5.1) mmol/L Chloride 104 (98-107) mmol/L Carbon Dioxide 35 H (22-30) mmol/L Anion Gap 3 mmol/L BUN 39 H (9-20) mg/dL Creatinine 1.01 (0.66-1.25) mg/dL Est GFR (CKD-EPI)AfAm 79 (>60 ml/min/1.73 sqM) Est GFR (CKD-EPI)NonAf 69 (>60 ml/min/1.73 sqM) Glucose 90 (74-99) mg/dL Plasma Lactic Acid Rajesh (0.7-2.0) mmol/L Calcium 10.4 H (8.4-10.2) mg/dL Magnesium 2.4 H (1.6-2.3) mg/dL Total Bilirubin 0.4 (0.2-1.3) mg/dL AST 114 H (17-59) U/L ALT 70 H (4-49) U/L Alkaline Phosphatase 102 (38-126) U/L Troponin I (0.000-0.034) ng/mL NT-Pro-B Natriuret Pep pg/mL Total Protein 7.5 (6.3-8.2) g/dL Albumin 3.7 (3.5-5.0) g/dL TSH 0.817 (0.465-4.680) mIU/L Free T4 1.59 (0.78-2.19) ng/dL Free T3 pg/mL 2.4 L (2.8-5.3) pg/ml Urine Color Urine Appearance (Clear) Urine pH (5.0-8.0) Ur Specific [place] (1.001-1.035) Urine Protein (Negative) Urine Glucose (UA) (Negative) Urine Ketones (Negative) Urine Blood (Negative) Urine Nitrite (Negative) Urine Bilirubin (Negative) Urine Urobilinogen (<2.0) mg/dL Ur Leukocyte Esterase (Negative) Urine RBC (0-5) /hpf Urine WBC (0-5) /hpf Amorphous Sediment (None) /hpf Urine Bacteria (None) /hpf Hyaline Casts (0-2) /lpf Urine Mucus (None) /hpf Coronavirus (PCR) (Not Detectd) 09/13/20 09/13/20 09/13/20 Range/Units 09:48 09:48 09:48 WBC (3.8-10.6) k/uL RBC (4.30-5.90) m/uL Hgb (13.0-17.5) gm/dL Hct (39.0-53.0) % MCV (80.0-100.0) fL MCH (25.0-35.0) pg MCHC (31.0-37.0) g/dL RDW (11.5-15.5) % Plt Count (150-450) k/uL MPV Neutrophils % % Lymphocytes % % Monocytes % % Eosinophils % % Basophils % % Neutrophils # (1.3-7.7) k/uL Lymphocytes # (1.0-4.8) k/uL Monocytes # (0-1.0) k/uL Eosinophils # (0-0.7) k/uL Basophils # (0-0.2) k/uL Manual Slide Review Hypochromasia Anisocytosis Microcytosis PT (9.0-12.0) sec INR (<1.2) APTT (22.0-30.0) sec Sodium (137-145) mmol/L Potassium (3.5-5.1) mmol/L Chloride (98-107) mmol/L Carbon Dioxide (22-30) mmol/L Anion Gap mmol/L BUN (9-20) mg/dL Creatinine (0.66-1.25) mg/dL Est GFR (CKD-EPI)AfAm (>60 ml/min/1.73 sqM) Est GFR (CKD-EPI)NonAf (>60 ml/min/1.73 sqM) Glucose (74-99) mg/dL Plasma Lactic Acid Rajesh 1.2 (0.7-2.0) mmol/L Calcium (8.4-10.2) mg/dL Magnesium (1.6-2.3) mg/dL Total Bilirubin (0.2-1.3) mg/dL AST (17-59) U/L ALT (4-49) U/L Alkaline Phosphatase (38-126) U/L Troponin I 0.014 (0.000-0.034) ng/mL NT-Pro-B Natriuret Pep 371 pg/mL Total Protein (6.3-8.2) g/dL Albumin (3.5-5.0) g/dL TSH (0.465-4.680) mIU/L Free T4 (0.78-2.19) ng/dL Free T3 pg/mL (2.8-5.3) pg/ml Urine Color Urine Appearance (Clear) Urine pH (5.0-8.0) Ur Specific [place] (1.001-1.035) Urine Protein (Negative) Urine Glucose (UA) (Negative) Urine Ketones (Negative) Urine Blood (Negative) Urine Nitrite (Negative) Urine Bilirubin (Negative) Urine Urobilinogen (<2.0) mg/dL Ur Leukocyte Esterase (Negative) Urine RBC (0-5) /hpf Urine WBC (0-5) /hpf Amorphous Sediment (None) /hpf Urine Bacteria (None) /hpf Hyaline Casts (0-2) /lpf Urine Mucus (None) /hpf Coronavirus (PCR) (Not Detectd) 09/13/20 09/13/20 Range/Units 09:49 09:51 WBC (3.8-10.6) k/uL RBC (4.30-5.90) m/uL Hgb (13.0-17.5) gm/dL Hct (39.0-53.0) % MCV (80.0-100.0) fL MCH (25.0-35.0) pg MCHC (31.0-37.0) g/dL RDW (11.5-15.5) % Plt Count (150-450) k/uL MPV Neutrophils % % Lymphocytes % % Monocytes % % Eosinophils % % Basophils % % Neutrophils # (1.3-7.7) k/uL Lymphocytes # (1.0-4.8) k/uL Monocytes # (0-1.0) k/uL Eosinophils # (0-0.7) k/uL Basophils # (0-0.2) k/uL Manual Slide Review Hypochromasia Anisocytosis Microcytosis PT (9.0-12.0) sec INR (<1.2) APTT (22.0-30.0) sec Sodium (137-145) mmol/L Potassium (3.5-5.1) mmol/L Chloride (98-107) mmol/L Carbon Dioxide (22-30) mmol/L Anion Gap mmol/L BUN (9-20) mg/dL Creatinine (0.66-1.25) mg/dL Est GFR (CKD-EPI)AfAm (>60 ml/min/1.73 sqM) Est GFR (CKD-EPI)NonAf (>60 ml/min/1.73 sqM) Glucose (74-99) mg/dL Plasma Lactic Acid Rajesh (0.7-2.0) mmol/L Calcium (8.4-10.2) mg/dL Magnesium (1.6-2.3) mg/dL Total Bilirubin (0.2-1.3) mg/dL AST (17-59) U/L ALT (4-49) U/L Alkaline Phosphatase (38-126) U/L Troponin I (0.000-0.034) ng/mL NT-Pro-B Natriuret Pep pg/mL Total Protein (6.3-8.2) g/dL Albumin (3.5-5.0) g/dL TSH (0.465-4.680) mIU/L Free T4 (0.78-2.19) ng/dL Free T3 pg/mL (2.8-5.3) pg/ml Urine Color Yellow Urine Appearance Cloudy (Clear) Urine pH 5.0 (5.0-8.0) Ur Specific [place] 1.026 (1.001-1.035) Urine Protein 1+ H (Negative) Urine Glucose (UA) Negative (Negative) Urine Ketones Negative (Negative) Urine Blood Negative (Negative) Urine Nitrite Negative (Negative) Urine Bilirubin Negative (Negative) Urine Urobilinogen 2.0 (<2.0) mg/dL Ur Leukocyte Esterase Negative (Negative) Urine RBC 4 (0-5) /hpf Urine WBC 3 (0-5) /hpf Amorphous Sediment Moderate H (None) /hpf Urine Bacteria Occasional H (None) /hpf Hyaline Casts 4 H (0-2) /lpf Urine Mucus Rare H (None) /hpf Coronavirus (PCR) Not Detected (Not Detectd) - Radiology Data Radiology results: image reviewed (Chest x-ray shows patchy infiltrates right lung thompson without significant change.) Critical Care Time Critical Care Time: Yes Total Critical Care Time: 33 Disposition Clinical Impression: Bradycardia Disposition: ADMITTED IP TO THIS [facility] Condition: Serious Is patient prescribed a controlled substance at d/c from ED?: No Referrals: None,Stated [REFERRING] - 1-2 days Decision Time: 11:25
[2020-09-13] MEDS: SODIUM CHLORIDE 0.9% 1,000 ML IV STA ×2 (09:53→15:16)
[2020-09-13 10:05] LABS: Anisocytosis Slight; Basophils % (A) 0 %; Eosinophils % (A) 0 %; HGB 12.2 gm/dL (13.0-17.5); Hypochromasia Marked; Lymphocytes # (A) 0.4 k/uL (1.0-4.8); Lymphocytes % (A) 6 %; MCH 23.8 pg (25.0-35.0); MCHC 30.4 g/dL (31.0-37.0); MCV 78.3 fL (80.0-100.0); Mean Platelet Volume 8.8; Microcytosis Slight; Monocytes # (A) 0.5 k/uL (0-1.0); Monocytes % (A) 8 %; Neutrophils # (A) 5.3 k/uL (1.3-7.7); Neutrophils % (A) 85 %; Platelet Count 144 k/uL (150-450); RBC 5.11 m/uL (4.30-5.90); RDW 19.3 % (11.5-15.5); WBC 6.2 k/uL (3.8-10.6)
[2020-09-13 10:15] LABS: INR 1.1 (<1.2); Partial Thromboplastin Time 30.3 sec (22.0-30.0); Prothrombin Time 11.6 sec (9.0-12.0)
[2020-09-13 10:27] LABS: Albumin 3.7 g/dL (3.5-5.0); Calcium 10.4 mg/dL (8.4-10.2); Magnesium 2.4 mg/dL (1.6-2.3); Potassium 4.9 mmol/L (3.5-5.1); Total Bilirubin 0.4 mg/dL (0.2-1.3); Total Protein 7.5 g/dL (6.3-8.2)
--- NOTE | 2020-09-13 10:40 | CT ---
EXAMINATION TYPE: CT brain wo con DATE OF EXAM: 09/13/2020 COMPARISON: None HISTORY: AMS CT DLP: 1131.[address] of the brain was performed. The ventricles, basal cisterns and sulci overlying the cerebral convexities demonstrate mild enlargem ent. There is no evidence for intracranial hemorrhage or sulcal effacement. There is decreased attenuation about the periventricular white matter and deep white matter of both c erebral hemispheres, compatible with chronic small vessel ischemia. Differential diagnosis does inclu de demyelination. No mass effects are seen.No midline shift. Osseous calvarium is intact. If symptoms persist consider MRI. IMPRESSION: 1. Age related atrophic and chronic small vessel ischemic change without acute intracranial process s een at this time.
--- NOTE | 2020-09-13 10:41 | XR ---
EXAMINATION TYPE: XR chest 2V DATE OF EXAM: 09/13/2020 COMPARISON: 04/17/2020 HISTORY: Shortness of breath TECHNIQUE: Frontal and lateral views of the chest are obtained. FINDINGS: Scattered senescent parenchymal changes noted. Hyperinflation compatible with COPD. Patchy infiltrates are seen throughout both lung thompson without significant interval change. Heart size is stable. Mediastinal structures are stable and grossly unremarkable. No evidence for hilar prominence. Degenerative changes dorsal spine. IMPRESSION: 1. No evidence for acute pulmonary disease.
[2020-09-13 10:43] LABS: T4, Free (Free Thyroxine) 1.59 ng/dL (0.78-2.19)
[2020-09-13 10:53] LABS: Amorphous Sediment,Urine Moderate /hpf; Appearance,Urine Cloudy (Clear); Bacteria,Urine Occasional /hpf; Bilirubin,Urine Negative (Negative); Blood,Urine Negative (Negative); Color,Urine Yellow; Glucose,Urine (UA) Negative (Negative); Hyaline Casts,Urine 4 /lpf (0-2); Ketones,Urine Negative (Negative); Leukocyte Esterase,Urine Negative (Negative); Mucus,Urine Rare /hpf; Nitrite,Urine Negative (Negative); Protein,Urine 1+ (Negative); RBC,Urine 4 /hpf (0-5); Specific Gravity,Urine 1.026 (1.001-1.035); WBC,Urine 3 /hpf (0-5)
[2020-09-13] MEDS ORDERED: NALOXONE 0.4 MG/ML 1 ML VIAL IV PRN (11:29)
[2020-09-13] MEDS ORDERED: DOPamine DRIP 800 MG in DEXTROSE/WATER 1 250ML.BAG IV ONE (11:46)
[2020-09-13] MEDS ORDERED: LIDOCAINE 1% INJ 10MG/ML (20 ML MDV) ONE (11:56)
[2020-09-13] MEDS ORDERED: IV FLUID CONTINUATION 1,000 ML IV ONE (12:43)
[2020-09-13] MEDS ORDERED: ALBUTEROL NEBULIZED 2.5 MG/3 ML INHALATION PRN (12:43)
[2020-09-13] MEDS ORDERED: LIDOCAINE 1% INJ 10MG/ML (20 ML MDV) SQ ONE (12:43)
--- NOTE | 2020-09-13 12:49 | P.CRDCN ---
History of Present Illness History of present illness: HISTORY OF PRESENTING ILLNESS This is a pleasant 84-year-old with past medical history significant for Medical history of right lobectomy secondary to silicosis in 1987, hypertension, atrial flutter on Eliquis and questionable concern of heart failure in March 2020 however normal BNP at the time who presents secondary to altered mental status. Patient is nonverbal currently and history is supplied by . Patient's states that over last 2 days patient has been more lethargic and did not want to come to the emergency department. Patient was found to be profoundly bradycard ic with heart rates in the 20s to 30s and occasional pauses up to 6 seconds with underlying atrial flutter. denies any recent chest pain, pressure, shortness of breath, fevers or chills. She does believe that his feet have been cooler and he has chronic issues with mild lower extremity swelling. In he was noted to have bilateral effusions which were felt more pulmonary than heart failure. In office with Dr. Figueroa. His last echo showed preserved ejection fraction 65% from 03/2020. Since heart rate in the emergency department has been in the 20s and 30s and patient was placed on a dopamine drip with heart rate mildly improved into the 40s. DIAGNOSTICS EKG reveals to flutter with rate 37, nonspecific ST, T-wave abnormalities CT brain showed no acute process. Patient has been on home valsartan however this is a chronic med and is on Eliquis. REVIEW OF SYSTEMS At the time of my exam: Unable to obtain secondary to altered mental status PHYSICAL EXAMINATION Vital signs reviewed. CONSTITUTIONAL: Ill appearing, confused, nonverbal not following commands with eyes open HEENT: Head is normocephalic. Pupils are equal, round. Sclerae anicteric. Mucous membranes of the mouth are moist. No JVD. No carotid bruit. CHEST EXAMINATION: Lungs are clear to auscultation. No chest wall tenderness is noted on palpation or with deep breathing. HEART EXAMINATION: Irregular, bradycardic, S1, S2 heard. No murmurs, gallops or rub. ABDOMEN: Soft, nontender. Positive bowel sounds. EXTREMITIES: 2+ peripheral pulses, 1+ lower extremity edema and no calf tenderness. NEUROLOGIC EXAMINATION: Patient is nonverbal and confused. ASSESSMENT 1. Symptomatic bradycardia rates in the 20s to 30s 2. Altered mental status, likely related to hyperperfusion from bradycardia. CT brain no acute process 3. History of silicosis status post lobectomy 4. Essential hypertension 5. Typical atrial flutter on anticoagulation with Eliquis PLAN Patient with severe bradycardia with heart rates in the 20s to 30s. No metabolic processes to account for bradycardia and home valsartan he has been tolerating for some time. 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 Given his altered mental status we will proceed with TVP with permanent pacemaker to be placed in the future. Check 2-D echo. Trend troponins. Further recommendations to follow. Past Medical History Past Medical History: COPD, Osteoarthritis (OA), Prostate Disorder, Respiratory Disorder Additional Past Medical History / Comment(s): Silicosis, pneumoconiosis, A. 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 BOWEL RESECTION WITH COLOSTOMY 11/2014, WOUND CENTER PROCEDURES R/T INFECTION IN ABDOMINAL WOUND, 08-15-15 reversal of colostomy/sigmoid resection/lysis of adhesions. Past Anesthesia/Blood Transfusion Reactions: No Reported Reaction Past Psychological History: No Psychological Hx Reported Smoking Status: Never smoker Past Alcohol Use History: Daily Past Drug Use History: None Reported - Past Family History Mother Family Medical History: Cancer, Dementia Additional Family Medical History / Comment(s): breast cancer, heart murmur. lives to be in her 80's. Father Family Medical History: Diabetes Mellitus Additional Family Medical History / Comment(s): at age 93 Medications and Allergies Home Medications Medication Instructions Recorded Confirmed Type Dutasteride [Avodart] 0.5 mg PO DAILY 03/27/14 09/13/20 History amLODIPine BESYLATE [Norvasc] 5 mg PO BID 03/27/14 09/13/20 History Multivit-Min/FA/Lycopene/Lut 1 tab PO DAILY 10/11/14 09/13/20 History [Centrum Silver Tablet] Turmeric Root Extract [Turmeric] 500 mg PO DAILY 10/11/14 09/13/20 History Vits A,C,E/Lutein/Minerals 1 tab PO DAILY 10/11/14 09/13/20 History [Ocuvite with Lutein Tablet] Gabapentin [Neurontin] 800 mg PO TID 12/10/14 09/13/20 History Albuterol Nebulized [Ventolin 2.5 mg INHALATION RT-TID PRN 12/11/14 09/13/20 History Nebulized] Krill Oil 500 mg PO DAILY 01/30/19 09/13/20 History Apixaban [Eliquis] 2.5 mg PO BID 04/14/20 09/13/20 History HYDROcodone/APAP 7.5-325MG [[place] 1 tab PO BID PRN 04/14/20 09/13/20 History 7.5-325] Valsartan [Diovan] 160 mg PO HS 04/14/20 09/13/20 History Furosemide [Lasix] 40 mg PO DAILY 09/13/20 09/13/20 History Allergies Allergy/AdvReac Type Severity Reaction Status Date / Time Penicillins Allergy Rash/Hives Verified 09/13/20 10:10 Sulfa (Sulfonamide Allergy Rash/Hives Verified 09/13/20 10:10 Antibiotics) Physical Exam Vitals: Vital Signs Pulse Resp BP Pulse Ox 09/13/20 12:08 47 L 18 111/55 96 09/13/20 11:38 29 L 16 104/83 96 09/13/20 11:20 37 L 17 106/55 93 L 09/13/20 10:38 36 L 18 115/85 94 L 09/13/20 09:36 38 L 18 127/54 90 L Intake and Output 09/12/20 09/13/20 09/13/20 22:59 06:59 14:59 Other: Weight 92 kg Results 09/13/20 09:48 09/13/20 09:48 Cardiac Enzymes 09/13/20 09/13/20 Range/Units 09:48 09:48 AST 114 H (17-59) U/L Troponin I 0.014 (0.000-0.034) ng/mL Coagulation 09/13/20 Range/Units 09:48 PT 11.6 (9.0-12.0) sec APTT 30.3 H (22.0-30.0) sec CBC 09/13/20 Range/Units 09:48 WBC 6.2 (3.8-10.6) k/uL RBC 5.11 (4.30-5.90) m/uL Hgb 12.2 L (13.0-17.5) gm/dL Hct 40.0 (39.0-53.0) % Plt Count 144 L (150-450) k/uL Comprehensive Metabolic Panel 09/13/20 Range/Units 09:48 Sodium 142 (137-145) mmol/L Potassium 4.9 (3.5-5.1) mmol/L Chloride 104 (98-107) mmol/L Carbon Dioxide 35 H (22-30) mmol/L BUN 39 H (9-20) mg/dL Creatinine 1.01 (0.66-1.25) mg/dL Glucose 90 (74-99) mg/dL Calcium 10.4 H (8.4-10.2) mg/dL AST 114 H (17-59) U/L ALT 70 H (4-49) U/L Alkaline Phosphatase 102 (38-126) U/L Total Protein 7.5 (6.3-8.2) g/dL Albumin 3.7 (3.5-5.0) g/dL Current Medications Generic Name Dose Route Start Last Admin Trade Name Freq PRN Reason Stop Dose Admin Sodium Chloride 1,000 mls @ 20 mls/hr 09/13/20 09:48 09/13/20 09:53 Saline 0.9% IV 09/14/20 09:47 20 mls/hr .Q24H STA Administration Sodium Chloride 1,000 mls @ 20 mls/hr 09/13/20 11:30 Saline 0.9% IV .Q24H ANNE Dopamine HCl/Dextrose 800 mg/ 250 mls @ 8.625 mls/hr 09/13/20 11:46 09/13/20 11:53 IV Solution IV 09/14/20 11:45 5 mcg/kg/min .Q24H ONE 8.625 mls/hr Administration Protocol 5 MCG/KG/MIN Naloxone HCl 0.2 mg 09/13/20 11:29 Naloxone 0.4 Mg/Ml 1 Ml Vial IV Q2M PRN Opioid Reversal Pantoprazole Sodium 40 mg 09/14/20 09:00 Pantoprazole 40 Mg/10 Ml Vial IV DAILY ANNE Intake and Output 09/12/20 09/13/20 09/13/20 22:59 06:59 14:59 Other: Weight 92 kg Patient Weight 09/14/20 06:59 Weight 92 kg 09/13/20 09:48 09/13/20 09:48
--- NOTE | 2020-09-13 13:27 | CE ---
CARDIAC ELECTROPHYSIOLOGY REPORT TEMPORARY PACEMAKER PLACEMENT: DATE OF SERVICE: September 13, 2020. PERFORMING PHYSICIAN: Ritchie Figueroa MD. PROCEDURE PERFORMED: Successful placement of temporary pacemaker via the IJ access. INDICATION: Severe bradycardia. COMPLICATION: None. LEVEL OF SEDATION: Moderate with sedation length of 15 minutes. PROCEDURE DESCRIPTION: After obtaining an informed consent, the patient was brought to the cardiac clinical genetics laboratory chief. The right IJ was accessed with adjunctive use of ultrasound and I placed over that a 6- [place] sheath. After that and under fluoroscopic guidance, temporary pacemaker was placed and advanced all the way to the RV apex. Subsequently, the pacemaker was set at 5 of , 60 beats per minute of heart beat. The procedure was completed without any complication. MMODL / WILLN: [id number] /
[2020-09-13] MEDS ORDERED: FUROSEMIDE 10 MG/ML 4 ML VIAL ONE (14:09)
[2020-09-13 14:11] LABS: ABG Oxygen Saturation 84.9 % (94-97); ABG PO2 66 mmHg (83-108); Allen Test Performed? Yes
--- NOTE | 2020-09-13 14:16 | XR ---
EXAMINATION TYPE: XR chest 1V portable DATE OF EXAM: 09/13/2020 HISTORY: Shortness of breath. COMPARISON: None. TECHNIQUE: Single view of the chest is submitted. FINDINGS: Demonstrated are scattered senescent parenchymal change. Diffuse bilateral right greater than left airspace infiltrates persist with underlying effusions. The re appears to be slight interval progression of disease. The heart is stable. Hilar and mediastinal structures are within normal limits. Degenerative changes are seen of the dorsal spine. IMPRESSION: 1. Diffuse bilateral right greater than left airspace infiltrates persist with underlying effusions. There appears to be slight interval progression of disease.
[2020-09-13 14:35] LABS: Glucose,Whole Blood 116 mg/dL (75-99)
[2020-09-13] MEDS ORDERED: propofoL 100 ML IV ONE (14:36)
[2020-09-13 15:00] LABS: ABG PCO2 >120 mmHg (35-45); ABG PH 7.07 (7.35-7.45)
[2020-09-13 15:01] LABS: ABG HCO3 13 mmol/L (21-25)
--- NOTE | 2020-09-13 15:07 | HP ---
HISTORY AND PHYSICAL CHIEF COMPLAINT: Weakness and change in mental status and also feeling cold, clamminess. HISTORY OF PRESENT ILLNESS: This 84-year-old gentleman with a past medical history of multiple medical problems including history of COPD, DJD, history of prostate disorder, history of silicosis pneumoconiosis, cholecystomy being followed by Dr. Oconnell in the outpatient setting was noted to have clammy, cold feeling by the family. The patient also had weakness and change in mental status. The patient was taken to [facility] and admitted for further evaluation and treatment. The patient unable to give coherent history most history taken from discussion with the family at the bedside and as well as review of the chart and discussion with the ER physician. The EKG showed atrial flutter with varying block, severe bradycardia. Pacemaker implantation was being planned by Cardiology. There is no history of any fever, rigors. No history of contact with COVID-19. COVID-19 testing was also negative at this time. PAST MEDICAL HISTORY: COPD, DJD, prostate disorder, silicosis pneumoconiosis, cholecystectomy. MEDICATIONS: The medications are home medications are: 1. Diovan. 2. Ocuvite. 3. Turmeric. 4. Krill oil. 5. Norvasc. 6. Multivitamins. 7. Paisley. 8. Neurontin. 9. Lasix. 10.Avodart. 11.Eliquis. 12.Ventolin. ALLERGIES: PENICILLIN and SULFA. FAMILY HISTORY: History of cancer, dementia, breast cancer. SOCIAL HISTORY: No history of smoking. No history of alcohol intake. REVIEW OF SYSTEMS: Could not be taken at length because of the patient's change in mental status. PHYSICAL EXAMINATION: Patient is conscious, arousable, confused. Pulse 47, blood pressure 111/55, respiration 18, temperature is normal, pulse ox 96% on 3 L. HEENT: Conjunctivae normal. Oral mucosa moist. NECK: No jugular venous distention. No carotid bruit. No lymph node enlargement. CARDIOVASCULAR: S1, S2 muffled. RESPIRATORY: Breath sounds diminished at the bases. A few scattered rhonchi. No crackles. ABDOMEN: Soft, nontender. No mass palpable. LEGS: No edema, no swelling. NEVOUS SYSTEM: Diffusely weak. SKIN: No ulcer, rash or bleeding. JOINTS: No active deforming arthropathy. LABS: Labs at this time WBC 6.2, hemoglobin 12.2. Magnesium is 2.4. AST is 114, ALT 70. ASSESSMENT: 1. Severe bradycardia, possibly atrial flutter with varying block. 2. Severe clamminess and cold feeling for evaluation. 3. Anemia, microcytic. 4. Thrombocytopenia. 5. Possible dehydration, present on admission. 6. Elevated AST, ALT. 7. History of chronic obstructive pulmonary disease. 8. History of degenerative joint disease. 9. History of prostate disorder. 10.History of silicosis pneumoconiosis. 11.History atrial flutter/fibrillation. 12.Chronic fibrosing and restrictive lung disease. 13.History of shingles. 14.History of peripheral neuropathy. 15.Change in mental status, metabolic encephalopathy. 16.Cholecystectomy. 17.Tonsillectomy. 18.Congestive heart failure with chronic diastolic dysfunction, ejection fraction 60% to 65%. RECOMMENDATIONS AND DISCUSSION: In this 84-year-old gentleman who presented with multiple complex medical issues, we will monitor the patient closely. Closely follow with Cardiology, possible hold beta blockers and rate limiting agents at this time. Otherwise, I would also recommend evaluation to look for any evidence of any sepsis. Otherwise, brain CT was done which I reviewed personally showed only age-related atrophic changes and chest x-ray was also done which I reviewed personally showed bilateral extensive lesions comparable to the previous one. Otherwise pulmonary has seen the patient previously. The prognosis guarded because of multiple complex medical issues. Further recommendations to follow. We will closely monitor. Obtain cultures as well. A copy of dictation forwarded to Dr. Oconnell who is the primary physician. MMJENNAL / WILLN: [id number] / ROSARIO
[2020-09-13] MEDS: SODIUM CHLORIDE 0.9% 1,000 ML IV SCH (15:16)
--- NOTE | 2020-09-13 16:05 | ECHOF ---
Referral Reason:re: LV function MEASUREMENTS -------- HEIGHT: 177.8 cm WEIGHT: 91.6 kg BP: MV EXCURSION: 16.226 mm (> 18.000) MV EF SLOPE: 82 mm/s (70 - 150) EPSS: 4.7 cm MV E Popeye: 0.51 m/s MV DecT: 166 ms MV A Popeye: 0.87 m/s MV E/A Ratio: 0.59 FINDINGS -------- This was a technically difficult study with suboptimal views. Pt. on a vent. Limited views and deni urements Suboptimal test with Lumason. Unable to calculate EF. The RV was not well visualized. The left atrium was not well visualized. The right atrium was not well visualized. Lumason used The aortic valve was not well visualized. The mitral valve was not well visualized. The tricuspid valve was not well visualized. The pulmonic valve was not well visualized. IVC Not well visulized. CONCLUSIONS -------- 1. Suboptimal test with Lumason secondary to body habitus, positioning on ventilator however EF appea rs to be preserved with EF 55%. TREE TRIMMING LINE TECHNICIAN: Alondra Saavedra, CS
[2020-09-13 16:09] LABS: ABG Base Excess 10.2 mmol/L; ABG HCO3 34 mmol/L (21-25); ABG Oxygen Saturation 99.5 % (94-97); ABG PCO2 46 mmHg (35-45); ABG PH 7.47 (7.35-7.45); ABG PO2 154 mmHg (83-108); ABG TCO2 35 mmol/L (19-24)
[2020-09-13 16:11] LABS: Allen Test Performed? no
[2020-09-13 16:11] LABS: Albumin 4.1 g/dL (3.5-5.0); Calcium 10.8 mg/dL (8.4-10.2); Potassium 5.7 mmol/L (3.5-5.1); Total Bilirubin 0.5 mg/dL (0.2-1.3); Total Protein 8.1 g/dL (6.3-8.2)
[2020-09-13] MEDS ORDERED: IPRATROPIUM-ALBUTEROL 3 ML NEB INHALATION PRN (16:46)
--- NOTE | 2020-09-13 16:46 | P.CNPUL ---
History of Present Illness Consult date: 09/13/20 Requesting physician: Shahid Shoemaker Reason for consult: other (Acute hypercapnic respiratory failure requiring intubation and mechanical ventilation.) Chief complaint: Weakness and lethargy. History of present illness: This is an 84-year-old white male with multiple medical problems including silicosis diagnosed in 1987, previous right lobectomy done at the [facility] in . History of hypertension, atrial fibrillation/flutter, maintained on Eliquis. Patient normally sees Dr. Elliott for his silicosis. And his occupational pneumoconiosis. Patient was brought in by his mostly because of weakness, and lethargy for the last 2 days. Patient has been refusing to come to the emergency room however upon the arrival to the ER, patient was found to have profound bradycardia with a rate in the 20-30. He also had pauses up to 6 seconds each with underlying atrial flutter. Seen by cardiology, and the patient was taken straight from the ER to the cardiac slab off mill tender, and he underwent temporary pacemaker implantation from the right internal jugular approach. While in the slab off mill tender, patient developed hypercapnic respiratory failure, with pCO2 as high as 120, required intubation and mechanical ventilation. Initially tried on BiPAP, but did not seem to improve his clinical status. Patient was placed on mechanical ventilation. I saw him in the ICU, placed on tidal volume is 450, assist control rate of 24, FiO2 was cut down to 35%, and PEEP of 5. ABG on 50% showed a pO2 of 154 pCO2 of 46 pH of 7.47. Earlier ABG before intubation showed a pO2 of 66 pCO2 of more than 120 and pH of 7.07. Chest x-ray showed diffuse bilateral airspace disease/fibrotic changes in both lungs, slightly worse compared to chest x-ray back in March 2020. At any rate patient was seen in the ICU, discussed his condition with the , he has a DO NOT RESUSCITATE CODE STATUS, right radial arterial line was placed for monitoring his blood gases, and I would likely wean and extubate the patient in the next 24 hours. Review of Systems ROS unobtainable: due to endotracheal tube Past Medical History Past Medical History: COPD, Osteoarthritis (OA), Prostate Disorder, Respiratory Disorder Additional Past Medical History / Comment(s): Silicosis, pneumoconiosis, A. 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 BOWEL RESECTION WITH COLOSTOMY 11/2014, WOUND CENTER PROCEDURES R/T INFECTION IN ABDOMINAL WOUND, 08-15-15 reversal of colostomy/sigmoid resection/lysis of adhesions. Past Anesthesia/Blood Transfusion Reactions: No Reported Reaction Past Psychological History: No Psychological Hx Reported Smoking Status: Never smoker Past Alcohol Use History: Daily Past Drug Use History: None Reported - Past Family History Mother Family Medical History: Cancer, Dementia Additional Family Medical History / Comment(s): breast cancer, heart murmur. lives to be in her 80's. Father Family Medical History: Diabetes Mellitus Additional Family Medical History / Comment(s): at age 93 Medications and Allergies Home Medications Medication Instructions Recorded Confirmed Type Dutasteride [Avodart] 0.5 mg PO DAILY 03/27/14 09/13/20 History amLODIPine BESYLATE [Norvasc] 5 mg PO BID 03/27/14 09/13/20 History Multivit-Min/FA/Lycopene/Lut 1 tab PO DAILY 10/11/14 09/13/20 History [Centrum Silver Tablet] Turmeric Root Extract [Turmeric] 500 mg PO DAILY 10/11/14 09/13/20 History Vits A,C,E/Lutein/Minerals 1 tab PO DAILY 10/11/14 09/13/20 History [Ocuvite with Lutein Tablet] Gabapentin [Neurontin] 800 mg PO TID 12/10/14 09/13/20 History Albuterol Nebulized [Ventolin 2.5 mg INHALATION RT-TID PRN 12/11/14 09/13/20 History Nebulized] Krill Oil 500 mg PO DAILY 01/30/19 09/13/20 History Apixaban [Eliquis] 2.5 mg PO BID 04/14/20 09/13/20 History HYDROcodone/APAP 7.5-325MG [Alpha 1 tab PO BID PRN 04/14/20 09/13/20 History 7.5-325] Valsartan [Diovan] 160 mg PO HS 04/14/20 09/13/20 History Furosemide [Lasix] 40 mg PO DAILY 09/13/20 09/13/20 History Allergies Allergy/AdvReac Type Severity Reaction Status Date / Time Penicillins Allergy Rash/Hives Verified 09/13/20 10:10 Sulfa (Sulfonamide Allergy Rash/Hives Verified 09/13/20 10:10 Antibiotics) Physical Exam Vitals: Vital Signs Temp Pulse Pulse Resp BP BP Pulse Ox 09/13/20 16:00 85.1 F L 60 16 121/63 99 09/13/20 15:30 61 15 92/48 99 09/13/20 15:00 59 L 31 H 107/57 100 09/13/20 14:36 60 11 L 100 09/13/20 13:55 60 16 99/48 89 L 09/13/20 13:30 60 18 106/53 76 L 09/13/20 12:08 47 L 18 111/55 96 09/13/20 11:38 29 L 16 104/83 96 09/13/20 11:20 37 L 17 106/55 93 L 09/13/20 10:38 36 L 18 115/85 94 L 09/13/20 09:36 38 L 18 127/54 90 L Intake and Output 09/13/20 09/13/20 09/13/20 06:59 14:59 22:59 Intake Total 100 Balance 100 Intake: IV 100 Other: Weight 86.2 kg Gen.: Revealed a 84-year-old white male frail looking, cachectic, intubated, mechanically ventilated, on propofol, sedated. HEENT: Atraumatic normocephalic. HEENT: PERRLA, EOMI, nonicteric, slightly dry mucous membranes. Right IJ temporary pacer catheter is noted. CHEST EXAMINATION: Symmetrical chest expansion, fine crackles and rhonchi noted at the base. HEART EXAMINATION: Paced rhythm, regular rate and rhythm, 2/6 systolic murmur thought the precordium. ABDOMEN: Soft nontender no megaly no rebound no guarding. EXTREMITIES: 1+ bipedal edema. Left forearm is wrapped with a sleeve, apparently patient had previous history of neuropathy related to previous herpes zoster infection. NEUROLOGIC EXAMINATION: Not assessed, patient is sedated, on propofol. Psychiatric: Could not assess. Skin: No rashes. Results - Laboratory Findings CBC and BMP: 09/13/20 09:48 09/13/20 15:22 ABG ABG pH 7.47 (7.35-7.45) H 09/13/20 16:06 ABG pCO2 46 mmHg (35-45) H 09/13/20 16:06 ABG pO2 154 mmHg (83-108) H 09/13/20 16:06 ABG O2 Saturation 99.5 % (94-97) H 09/13/20 16:06 PT/INR, D-dimer PT 11.6 sec (9.0-12.0) 09/13/20 09:48 INR 1.1 (<1.2) 09/13/20 09:48 Abnormal lab findings: Abnormal Labs 09/13/20 09/13/20 09/13/20 09:48 09:48 09:48 Hgb 12.2 L MCV 78.3 L MCH 23.8 L MCHC 30.4 L RDW 19.3 H Plt Count 144 L Lymphocytes # 0.4 L APTT 30.3 H ABG pH ABG pCO2 ABG pO2 ABG HCO3 ABG Total CO2 ABG O2 Saturation Potassium Carbon Dioxide 35 H BUN 39 H Glucose POC Glucose (mg/dL) Calcium 10.4 H Magnesium 2.4 H AST 114 H ALT 70 H Free T3 pg/mL 2.4 L Urine Protein Amorphous Sediment Urine Bacteria Hyaline Casts Urine Mucus 09/13/20 09/13/20 09/13/20 09:51 13:58 14:34 Hgb MCV MCH MCHC RDW Plt Count Lymphocytes # APTT ABG pH 7.07 L* ABG pCO2 >120 H* ABG pO2 66 L ABG HCO3 13 L ABG Total CO2 ABG O2 Saturation 84.9 L Potassium Carbon Dioxide BUN Glucose POC Glucose (mg/dL) 116 H Calcium Magnesium AST ALT Free T3 pg/mL Urine Protein 1+ H Amorphous Sediment Moderate H Urine Bacteria Occasional H Hyaline Casts 4 H Urine Mucus Rare H 09/13/20 09/13/20 15:22 16:06 Hgb MCV MCH MCHC RDW Plt Count Lymphocytes # APTT ABG pH 7.47 H ABG pCO2 46 H ABG pO2 154 H ABG HCO3 34 H ABG Total CO2 35 H ABG O2 Saturation 99.5 H Potassium 5.7 H Carbon Dioxide 33 H BUN 42 H Glucose 130 H POC Glucose (mg/dL) Calcium 10.8 H Magnesium AST 125 H ALT 77 H Free T3 pg/mL Urine Protein Amorphous Sediment Urine Bacteria Hyaline Casts Urine Mucus - Diagnostic Findings Chest x-ray: image reviewed (Post intubation chest x-ray is pending. Previous chest x-ray on admission was reviewed and as noted in HPI.) Assessment and Plan Assessment: Impression: Acute hypercapnic respiratory failure most likely secondary to sedation, not to mention the patient has chronic occupation pneumoconiosis/silicosis and chronic fibrosis as well as some component of chronic obstructive pulmonary disease. It is not clear to me whether the patient received sedation during the procedure/pacemaker implantation, most likely he did, and he required intubation and post the procedure because of acute hypercapnia. This is expected considering the patient has underlying occupation pneumoconiosis and marginal pulmonary status to begin with. Silicosis with chronic fibrotic changes and calcifications in both lungs. History of pneumoconiosis. History of diverticular disease. History of postherpetic polyneuropathy involving left upper extremity. History of bowel resection and colostomy with subsequent reversal. History of abdominal wall hernia. History of chronic atrial fibrillation. Recommendation: Continue ventilatory support. Placed patient on bronchodilators in the form of DuoNeb. GI and DVT prophylaxis. IV Solu-Medrol. Resume home meds. Monitor patient for his arrhythmia he is status post pacemaker implantation/temporary. We will address possible weaning and extubation in the morning. We'll continue to follow. Discussed and updated his on the condition at bedside. Time with Patient: Greater than 30
[2020-09-13] MEDS: methylPREDNISolone SOD SUCCI 40 MG/ML 1 ML VIAL IV SCH ×2 (17:10→23:59)
[2020-09-13] MEDS ORDERED: HYDROCORTISONE SUCCINATE 100 MG/2 ML VIAL IV STA (19:29)
[2020-09-13] MEDS ORDERED: NOREPINEPHRINE 8 MG in SODIUM CHLORIDE 0.9% 250 ML IV SCH (19:30)
[2020-09-13] MEDS ORDERED: SODIUM CHLORIDE 0.9% 1,000 ML IV ONE (19:30)
[2020-09-13] MEDS: CHLORHEXIDINE GLUCONATE 15 ML CUP MUCOUS MEM SCH (20:03)
[2020-09-13] MEDS: NOREPINEPHRINE 4 MG in SODIUM CHLORIDE 0.9% 250 ML IV SCH (20:38)
[2020-09-13] MEDS ORDERED: HEPARIN SODIUM,PORCINE/PF 5,000 UNIT/0.5 ML SYRINGE SQ SCH (21:00)
--- NOTE | 2020-09-13 21:08 | XR ---
EXAMINATION TYPE: XR chest 1V portable DATE OF EXAM: 09/13/2020 CLINICAL HISTORY: endotracheal tube placement. TECHNIQUE: Portable semiupright view of the chest. COMPARISON: 09/13/2020 at 1:58 PM FINDINGS: Endotracheal tube distal tip 3.7 cm from the araceli. Enteric tube with nonvisualization of the distal tip, however side-port below the level of the GE junction. The cardiomediastinal silhouet te is unchanged. Diffuse airspace opacities and bilateral pleural fusions appear similar. IMPRESSION: 1. Endotracheal tube distal tip 3.7 cm from the araceli. 2. Enteric tube with nonvisualization of distal tip, with side-port below the level of the GE junctio n. 3. Otherwise radiographic appearance of the chest appears similar to comparison at 1:58 PM.
[2020-09-13] MEDS ORDERED: APIXABAN 2.5 MG TABLET PO ONE (21:48)
[2020-09-14 03:41] LABS: Anisocytosis Slight; Basophils % (A) 0 %; Eosinophils % (A) 0 %; HCT 42.2 % (39.0-53.0); HGB 13.3 gm/dL (13.0-17.5); Hypochromasia Moderate; Lymphocytes # (A) 0.2 k/uL (1.0-4.8); Lymphocytes % (A) 2 %; MCH 23.5 pg (25.0-35.0); MCHC 31.5 g/dL (31.0-37.0); MCV 74.8 fL (80.0-100.0); Mean Platelet Volume 9.7; Microcytosis Moderate; Monocytes # (A) 0.7 k/uL (0-1.0); Monocytes % (A) 6 %; Neutrophils # (A) 10.6 k/uL (1.3-7.7); Neutrophils % (A) 91 %; Platelet Count 178 k/uL (150-450); RBC 5.64 m/uL (4.30-5.90); RDW 19.7 % (11.5-15.5); WBC 11.7 k/uL (3.8-10.6)
[2020-09-14 03:58] LABS: Potassium 4.9 mmol/L (3.5-5.1)
[2020-09-14 04:12] LABS: Glucose,Whole Blood 66 mg/dL (75-99)
[2020-09-14] MEDS ORDERED: DEXTROSE 50% SYRINGE 50 ML IVP STA (04:12)
[2020-09-14 04:31] LABS: Glucose,Whole Blood 117 mg/dL (75-99)
[2020-09-14 06:03] LABS: ABG Base Excess 3.6 mmol/L; ABG HCO3 26 mmol/L (21-25); ABG PCO2 32 mmHg (35-45); ABG PH 7.53 (7.35-7.45); ABG PO2 89 mmHg (83-108); ABG TCO2 27 mmol/L (19-24); Allen Test Performed? Yes
--- NOTE | 2020-09-14 06:59 | XR ---
EXAMINATION TYPE: XR chest 1V portable DATE OF EXAM: 09/14/2020 COMPARISON: Chest x-ray 09/13/2020 HISTORY: Intubated TECHNIQUE: Single frontal view of the chest is obtained. FINDINGS: Endotracheal tube, orogastric tube are overlying appropriate positions, leads are again no minoo. Pleural parenchymal changes are stable. Cardiac mediastinal silhouette is unchanged. There are o verlying artifacts. IMPRESSION: No significant interval change. Correlate for pneumonia, edema, possible effusions and s carring
--- NOTE | 2020-09-14 07:08 | PCN ---
PROCEDURE NOTE PROCEDURE PERFORMED: Placement of a right radial arterial line. PREOPERATIVE DIAGNOSIS: Acute hypercapnic respiratory failure. POSTOPERATIVE DIAGNOSIS: Acute hypercapnic respiratory failure. ANESTHESIA: None deployed. PROCEDURE: The patient was placed in the supine position, the right wrist was prepared in a sterile fashion and drapes were applied. The right radial artery was palpated, cannulated, a guidewire was placed. A Cook's catheter was inserted over the guidewire, and the guidewire was removed. Good blood flow, good waveform noted, no evidence of any immediate complications. Line was secured using 3.0 silk sutures. MMODL / IJN: [id number] /
[2020-09-14] MEDS: VIT A,C & E-LUTEIN-MINERALS 1 EACH TAB PO SCH (08:42)
[2020-09-14] MEDS: CHLORHEXIDINE GLUCONATE 15 ML CUP MUCOUS MEM SCH ×2 (08:42→20:15)
[2020-09-14] MEDS: FINASTERIDE 5 MG TAB PO SCH (08:42)
[2020-09-14] MEDS: methylPREDNISolone SOD SUCCI 40 MG/ML 1 ML VIAL IV SCH ×2 (08:42→16:38)
[2020-09-14] MEDS: MULTIVITAMINS, THERA 1 EACH TAB PO SCH (08:43)
[2020-09-14] MEDS: PANTOPRAZOLE 40 MG/10 ML VIAL IV SCH (08:43)
[2020-09-14] MEDS: NOREPINEPHRINE 4 MG in SODIUM CHLORIDE 0.9% 250 ML IV SCH (08:53)
[2020-09-14 08:59] VITALS: BMI 23.1
--- NOTE | 2020-09-14 10:26 | P.PN ---
Subjective Progress Note Date: 09/14/20 Principal diagnosis: 3 AV block, acute on chronic hypercapnic respiratory failure This is an 84-year-old white male with multiple medical problems including silicosis diagnosed in 1987, previous right lobectomy done at the [facility] in . History of hypertension, atrial fibrillation/flutter, maintained on Eliquis. Patient normally sees Dr. Elliott for his silicosis. And his occupational pneumoconiosis. Patient was brought in by his mostly because of weakness, and lethargy for the last 2 days. Patient has been refusing to come to the emergency room however upon the arrival to the ER, patient was found to have profound bradycardia with a rate in the 20-30. He also had pauses up to 6 seconds each with underlying atrial flutter. Seen by cardiology, and the patient was taken straight from the ER to the cardiac [facility], and he underwent temporary pacemaker implantation from the right internal jugular approach. While in the [facility], patient developed hypercapnic respiratory failure, with pCO2 as high as 120, required intubation and mechanical ventilation. Initially tried on BiPAP, but did not seem to improve his clinical status. Patient was placed on mechanical ventilation. I saw him in the ICU, placed on tidal volume is 450, assist control rate of 24, FiO2 was cut down to 35%, and PEEP of 5. ABG on 50% showed a pO2 of 154 pCO2 of 46 pH of 7.47. Earlier ABG before intubation showed a pO2 of 66 pCO2 of more than 120 and pH of 7.07. Chest x-ray showed diffuse bilateral airspace disease/fibrotic changes in both lungs, slightly wors e compared to chest x-ray back in March 2020. At any rate patient was seen in the ICU, discussed his condition with the , he has a DO NOT RESUSCITATE CODE STATUS, right radial arterial line was placed for monitoring his blood gases, and I would likely wean and extubate the patient in the next 24 hours. On 09/14/2020 patient seen in follow-up in the intensive care unit, he remains intubated, and sedated, on assist control mode of ventilation with a rate of 24, tidal volume is 450, FiO2 35% and PEEP of 5, despite his blood gases show pO2 of 89, pCO2 32, and pH of 7.53, he is currently on 0.7 at 30 per hour, norepinephrine is at 13 mics per minute, dopamine has been discontinued, last night he did become hypotensive requiring an additional liter bolus, and we switched his dopamine to norepinephrine. He was given 1 dose of IV hydrocortisone 100 mg. His TSH was checked twice and both times was within normal limits at 0.658, and 0.817. Urinalysis was sent, showing 1+ protein, occ asional bacteria, but no clear sign of infection, COVID-19 was negative, chest x-ray today shows chronic pleural parenchymal changes, and diffuse airspace opacities and bilateral pleural effusions, unchanged. Today's labs have been reviewed showing white blood cell count of 11.7, hemoglobin is 13.3, electrolytes were within normal limits, there is worsening of his renal function and BUN is 43, creatinine is 1.5 on today's labs. Echocardiogram showed preserved LV function of 55% and this was a limited study. Patient still has temporary transvenous pacemaker inserted in his right IJ, and he is on VVI 50, however patient back in A. fib right now and he was given a dose of Eliquis by cardiology last night. Objective - Vital Signs Vital signs: Vital Signs Temp 98.6 F 09/14/20 08:00 Pulse 90 09/14/20 08:45 Resp 18 09/14/20 08:45 BP 128/69 09/14/20 08:45 Pulse Ox 96 09/14/20 08:45 Intake & Output 09/13/20 09/14/20 09/14/20 18:59 06:59 18:59 Intake Total 443.174 8647.392 394 Output Total 180 912 42 Balance 12.411 357.392 352 Weight 86.2 kg 77.5 kg 77.5 kg Intake: IV 160 1220 40 Sodium Chloride 0.9% 1, 60 1220 40 000 ml @ 20 mls/hr IV . Q24H ANNE Rx#:[id number] Intake, IV Titration 32.411 49.392 354 Amount Norepinephrine 4 mg In 254 Sodium Chloride 0.9% 250 ml @ 0.05 MCG/KG/MIN 16. 421 mls/hr IV .[id number] ANNE Rx#:[id number] propofoL 1,000 mg In 32.411 49.392 100 Empty Bag 1 bag @ Titrate IV .Q0M ANNE Rx#: [id number] Output: Urine 180 912 42 Other: Voiding Method Indwelling Catheter Indwelling Catheter ABP, PAP, CO, CI - Last Documented Arterial Blood Pressure 82/53 - Exam GENERAL EXAM: Sedated, intubated, 84-year-old white male, on assist control mode of ventilation, with FiO2 of 35% and PEEP of 5, comfortable in no apparent distress. HEAD: Normocephalic/atraumatic. EYES: Normal reaction of pupils, equal size. Conjunctiva pink, sclera white. NOSE: Clear with pink turbinates. THROAT: No erythema or exudates. NECK: No masses, no JVD, no thyroid enlargement, no adenopathy. Patient has a right IJ transvenous pacemaker connected to an external pacemaker box with VVI 50 CHEST: No chest wall deformity. Symmetrical expansion. LUNGS: Equal air entry with no crackles, wheeze, rhonchi or dullness. CVS: Irregular rate and rhythm, normal S1 and S2, no gallops, no murmurs, no rubs. Intrinsic rate is atrial fibrillation with a rate of 70, VVI 50 backup ABDOMEN: Soft, nontender. No hepatosplenomegaly, normal bowel sounds, no guarding or rigidity. EXTREMITIES: No clubbing, no edema, no cyanosis, 2+ pulses and upper and lower extremities. MUSCULOSKELETAL: Muscle strength and tone normal. SPINE: No scoliosis or deformity SKIN: No rashes CENTRAL NERVOUS SYSTEM: Sedated, intubated. No focal deficits, tone is normal in all 4 extremities. - Labs CBC & Chem 7: 09/14/20 03:12 09/14/20 03:12 Labs: Abnormal Lab Results - Last 24 Hours (Table) 09/13/20 09/13/20 09/13/20 Range/Units 09:48 09:48 09:48 WBC (3.8-10.6) k/uL Hgb 12.2 L (13.0-17.5) gm/dL MCV 78.3 L (80.0-100.0) fL MCH 23.8 L (25.0-35.0) pg MCHC 30.4 L (31.0-37.0) g/dL RDW 19.3 H (11.5-15.5) % Plt Count 144 L (150-450) k/uL Neutrophils # (1.3-7.7) k/uL Lymphocytes # 0.4 L (1.0-4.8) k/uL APTT 30.3 H (22.0-30.0) sec ABG pH (7.35-7.45) ABG pCO2 (35-45) mmHg ABG pO2 (83-108) mmHg ABG HCO3 (21-25) mmol/L ABG Total CO2 (19-24) mmol/L ABG O2 Saturation (94-97) % Potassium (3.5-5.1) mmol/L Carbon Dioxide 35 H (22-30) mmol/L BUN 39 H (9-20) mg/dL Creatinine (0.66-1.25) mg/dL Glucose (74-99) mg/dL POC Glucose (mg/dL) (75-99) mg/dL Calcium 10.4 H (8.4-10.2) mg/dL Magnesium 2.4 H (1.6-2.3) mg/dL AST 114 H (17-59) U/L ALT 70 H (4-49) U/L Free T3 pg/mL 2.4 L (2.8-5.3) pg/ml Urine Protein (Negative) Amorphous Sediment (None) /hpf Urine Bacteria (None) /hpf Hyaline Casts (0-2) /lpf Urine Mucus (None) /hpf 09/13/20 09/13/20 09/13/20 Range/Units 09:51 13:58 14:34 WBC (3.8-10.6) k/uL Hgb (13.0-17.5) gm/dL MCV (80.0-100.0) fL MCH (25.0-35.0) pg MCHC (31.0-37.0) g/dL RDW (11.5-15.5) % Plt Count (150-450) k/uL Neutrophils # (1.3-7.7) k/uL Lymphocytes # (1.0-4.8) k/uL APTT (22.0-30.0) sec ABG pH 7.07 L* (7.35-7.45) ABG pCO2 >120 H* (35-45) mmHg ABG pO2 66 L (83-108) mmHg ABG HCO3 13 L (21-25) mmol/L ABG Total CO2 (19-24) mmol/L ABG O2 Saturation 84.9 L (94-97) % Potassium (3.5-5.1) mmol/L Carbon Dioxide (22-30) mmol/L BUN (9-20) mg/dL Creatinine (0.66-1.25) mg/dL Glucose (74-99) mg/dL POC Glucose (mg/dL) 116 H (75-99) mg/dL Calcium (8.4-10.2) mg/dL Magnesium (1.6-2.3) mg/dL AST (17-59) U/L ALT (4-49) U/L Free T3 pg/mL (2.8-5.3) pg/ml Urine Protein 1+ H (Negative) Amorphous Sediment Moderate H (None) /hpf Urine Bacteria Occasional H (None) /hpf Hyaline Casts 4 H (0-2) /lpf Urine Mucus Rare H (None) /hpf 09/13/20 09/13/20 09/14/20 Range/Units 15:22 16:06 03:12 WBC 11.7 H (3.8-10.6) k/uL Hgb (13.0-17.5) gm/dL MCV 74.8 L (80.0-100.0) fL MCH 23.5 L (25.0-35.0) pg MCHC (31.0-37.0) g/dL RDW 19.7 H (11.5-15.5) % Plt Count (150-450) k/uL Neutrophils # 10.6 H (1.3-7.7) k/uL Lymphocytes # 0.2 L (1.0-4.8) k/uL APTT (22.0-30.0) sec ABG pH 7.47 H (7.35-7.45) ABG pCO2 46 H (35-45) mmHg ABG pO2 154 H (83-108) mmHg ABG HCO3 34 H (21-25) mmol/L ABG Total CO2 35 H (19-24) mmol/L ABG O2 Saturation 99.5 H (94-97) % Potassium 5.7 H (3.5-5.1) mmol/L Carbon Dioxide 33 H (22-30) mmol/L BUN 42 H (9-20) mg/dL Creatinine (0.66-1.25) mg/dL Glucose 130 H (74-99) mg/dL POC Glucose (mg/dL) (75-99) mg/dL Calcium 10.8 H (8.4-10.2) mg/dL Magnesium (1.6-2.3) mg/dL AST 125 H (17-59) U/L ALT 77 H (4-49) U/L Free T3 pg/mL (2.8-5.3) pg/ml Urine Protein (Negative) Amorphous Sediment (None) /hpf Urine Bacteria (None) /hpf Hyaline Casts (0-2) /lpf Urine Mucus (None) /hpf 09/14/20 09/14/20 09/14/20 Range/Units 03:12 04:10 04:29 WBC (3.8-10.6) k/uL Hgb (13.0-17.5) gm/dL MCV (80.0-100.0) fL MCH (25.0-35.0) pg MCHC (31.0-37.0) g/dL RDW (11.5-15.5) % Plt Count (150-450) k/uL Neutrophils # (1.3-7.7) k/uL Lymphocytes # (1.0-4.8) k/uL APTT (22.0-30.0) sec ABG pH (7.35-7.45) ABG pCO2 (35-45) mmHg ABG pO2 (83-108) mmHg ABG HCO3 (21-25) mmol/L ABG Total CO2 (19-24) mmol/L ABG O2 Saturation (94-97) % Potassium (3.5-5.1) mmol/L Carbon Dioxide (22-30) mmol/L BUN 43 H (9-20) mg/dL Creatinine 1.51 H (0.66-1.25) mg/dL Glucose 62 L (74-99) mg/dL POC Glucose (mg/dL) 66 L 117 H (75-99) mg/dL Calcium (8.4-10.2) mg/dL Magnesium (1.6-2.3) mg/dL AST (17-59) U/L ALT (4-49) U/L Free T3 pg/mL (2.8-5.3) pg/ml Urine Protein (Negative) Amorphous Sediment (None) /hpf Urine Bacteria (None) /hpf Hyaline Casts (0-2) /lpf Urine Mucus (None) /hpf 09/14/20 Range/Units 05:55 WBC (3.8-10.6) k/uL Hgb (13.0-17.5) gm/dL MCV (80.0-100.0) fL MCH (25.0-35.0) pg MCHC (31.0-37.0) g/dL RDW (11.5-15.5) % Plt Count (150-450) k/uL Neutrophils # (1.3-7.7) k/uL Lymphocytes # (1.0-4.8) k/uL APTT (22.0-30.0) sec ABG pH 7.53 H (7.35-7.45) ABG pCO2 32 L (35-45) mmHg ABG pO2 (83-108) mmHg ABG HCO3 26 H (21-25) mmol/L ABG Total CO2 27 H (19-24) mmol/L ABG O2 Saturation 98.0 H (94-97) % Potassium (3.5-5.1) mmol/L Carbon Dioxide (22-30) mmol/L BUN (9-20) mg/dL Creatinine (0.66-1.25) mg/dL Glucose (74-99) mg/dL POC Glucose (mg/dL) (75-99) mg/dL Calcium (8.4-10.2) mg/dL Magnesium (1.6-2.3) mg/dL AST (17-59) U/L ALT (4-49) U/L Free T3 pg/mL (2.8-5.3) pg/ml Urine Protein (Negative) Amorphous Sediment (None) /hpf Urine Bacteria (None) /hpf Hyaline Casts (0-2) /lpf Urine Mucus (None) /hpf Assessment and Plan Plan: Assessment: #1. Acute on chronic hypercapnic respiratory failure most likely secondary to procedural sedation, requiring intubation and placement on mechanical ventilator on 09/13/2020. #2. Third-degree AV block, requiring placement of temporary transvenous pacemaker in the right IJ area on 09/13/2020 #3. Acute kidney injury #4. Hypotension, related to bradycardia, and hypovolemia, do not suspect sepsis, the patient was given 1 dose of hydrocortisone 100 mg on a trial basis #3. History of atrial fibrillation/A flutter on Eliquis on an outpatient basis #4. History of silicosis/pulmonary fibrosis, chronic occupation pneumoconiosis/silicosis and history of COPD status post lobectomy #5. Essential hypertension #6. History of diverticular disease #7. History of postherpetic polyneuropathy involving left upper extremity #8. History of bowel resection and colostomy with subsequent reversal #9. History of abdominal wall hernia Plan: Proceed with that daily interrutpion of sedation Dropped at respiratory rate down to 18 Increase the IV fluids to 75 Anticoagulation per cardiology Wean norepinephrine CODE STATUS was changed to DO NOT RESUSCITATE Patient was started on IV Solu-Medrol We discontinued dopamine last night We'll proceed with spontaneous breathing trials with a goal of extubation Continue to follow I performed a history & physical examination of the patient and discussed their management with my nurse practitioner, Madelyn Hill. I reviewed the nurse practitioner's note and agree with the documented findings and plan of care. Lung sounds are positive for diminished breath sounds. The findings and the impression was discussed with the patient. I attest to the documentation by the nurse practitioner. On Time with Patient: Greater than 30
[2020-09-14 11:44] LABS: Glucose,Whole Blood 107 mg/dL (75-99)
[2020-09-14] MEDS: SODIUM CHLORIDE 0.9% 1,000 ML IV SCH (12:19)
--- NOTE | 2020-09-14 15:35 | P.PN ---
Subjective HISTORY OF PRESENTING ILLNESS This is a pleasant 84-year-old with past medical history significant for Medical history of right lobectomy secondary to silicosis in 1987, hypertension, atrial flutter on qu and questionable concern of heart failure in March 2020 however normal BNP at the time who presents secondary to altered mental status. Patient is nonverbal currently and history is supplied by . Patient's states that over last 2 days patient has been more lethargic and did not want to come to the emergency department. Patient was found to be profoundly bradycardic with heart rates in the 20s to 30s and occasional pauses up to 6 seconds with underlying atrial flutter. denies any recent chest pain, pressure, shortness of breath, fevers or chills. She does believe that his feet have been cooler and he has chronic issues with mild lower extremity swelling. In he was noted to have bilateral effusions which were felt more pulmonary than heart failure. In office with Dr. Figueroa. His last echo showed p reserved ejection fraction 65% from 03/2020. Since heart rate in the emergency department has been in the 20s and 30s and patient was placed on a dopamine drip with heart rate mildly improved into the 40s. 09/14 Patient seen and examined. Patient remains intubated on 35% FiO2 with a PEEP of 5. He underwent TVP placement yesterday afternoon however developed worsened altered mental status with a CO2 greater than 120 and therefore was intubated. Sedation has been weaned however not responding much. His CVP has been weaned and currently in A. fib with a heart rate in the 60s and 70s. He was taken off of the dopamine drip is currently on a low-dose of vasopressors. REVIEW OF SYSTEMS At the time of my exam: Unable to obtain secondary to altered mental status PHYSICAL EXAMINATION Vital signs reviewed. CONSTITUTIONAL: Ill appearing, on ventilator, not following commands HEENT: Head is normocephalic. Pupils are equal, round. Sclerae anicteric. Mucous membranes of the mouth are moist. No JVD. No carotid bruit. CHEST EXAMINATION: Lungs are clear to auscultation. No chest wall tenderness is noted on palpation or with deep breathing. HEART EXAMINATION: Irregular, S1, S2 heard. No murmurs, gallops or rub. ABDOMEN: Soft, nontender. Positive bowel sounds. EXTREMITIES: 2+ peripheral pulses, 1+ lower extremity edema and no calf tenderness. NEUROLOGIC EXAMINATION: Patient is nonverbal and confused. ASSESSMENT 1. Symptomatic bradycardia rates in the 20s to 30s 2. Altered mental status, likely related to hyperperfusion from bradycardia. CT brain no acute process 3. History of silicosis status post lobectomy 4. Essential hypertension 5. Typical atrial flutter on anticoagulation with Eliquis 6. Hypotension on vasopressors PLAN Status post TVP placement. Patient unfortunately had worsened altered mental status and was intubated with CO2 narcosis. Wean ventilator as able. Patient currently off of DVT and dopamine with heart rates fairly stable however patient will still need permanent pacemaker placement before discharge. Hypotension may be related to sedation purposes rule out infectious etiology. 2-D Echo Limited and appears that preserved ejection fraction however may repeat if concerning. Continue with supportive care. Prognosis guarded. Objective - Vital Signs Vital signs: Vital Signs Temp 98.6 F 09/14/20 08:00 Pulse 65 09/14/20 14:30 Resp 19 09/14/20 14:30 BP 129/75 09/14/20 14:30 Pulse Ox 98 09/14/20 14:30 Intake & Output 09/13/20 09/14/20 09/14/20 18:59 06:59 18:59 Intake Total 694.988 4816.392 902.853 Output Total 180 912 212 Balance 12.411 357.392 690.853 Weight 86.2 kg 77.5 kg 77.5 kg Intake: IV 160 1220 435 Sodium Chloride 0.9% 1, 60 1220 435 000 ml @ 20 mls/hr IV . Q24H ANNE Rx#:[id number] Intake, IV Titration 32.411 49.392 467.853 Amount Norepinephrine 4 mg In 367.853 Sodium Chloride 0.9% 250 ml @ 0.05 MCG/KG/MIN 16. 421 mls/hr IV .[id number] ANNE Rx#:[id number] propofoL 1,000 mg In 32.411 49.392 100 Empty Bag 1 bag @ Titrate IV .Q0M ANNE Rx#: [id number] Output: Urine 180 912 212 Other: Voiding Method Indwelling Catheter Indwelling Catheter Indwelling Catheter ABP, PAP, CO, CI - Last Documented Arterial Blood Pressure 112/60 - Labs CBC & Chem 7: 09/14/20 03:12 09/14/20 03:12 Labs: Abnormal Lab Results - Last 24 Hours (Table) 09/13/20 09/13/20 09/14/20 Range/Units 15:22 16:06 03:12 WBC 11.7 H (3.8-10.6) k/uL MCV 74.8 L (80.0-100.0) fL MCH 23.5 L (25.0-35.0) pg RDW 19.7 H (11.5-15.5) % Neutrophils # 10.6 H (1.3-7.7) k/uL Lymphocytes # 0.2 L (1.0-4.8) k/uL ABG pH 7.47 H (7.35-7.45) ABG pCO2 46 H (35-45) mmHg ABG pO2 154 H (83-108) mmHg ABG HCO3 34 H (21-25) mmol/L ABG Total CO2 35 H (19-24) mmol/L ABG O2 Saturation 99.5 H (94-97) % Potassium 5.7 H (3.5-5.1) mmol/L Carbon Dioxide 33 H (22-30) mmol/L BUN 42 H (9-20) mg/dL Creatinine (0.66-1.25) mg/dL Glucose 130 H (74-99) mg/dL POC Glucose (mg/dL) (75-99) mg/dL Calcium 10.8 H (8.4-10.2) mg/dL AST 125 H (17-59) U/L ALT 77 H (4-49) U/L 09/14/20 09/14/20 09/14/20 Range/Units 03:12 04:10 04:29 WBC (3.8-10.6) k/uL MCV (80.0-100.0) fL MCH (25.0-35.0) pg RDW (11.5-15.5) % Neutrophils # (1.3-7.7) k/uL Lymphocytes # (1.0-4.8) k/uL ABG pH (7.35-7.45) ABG pCO2 (35-45) mmHg ABG pO2 (83-108) mmHg ABG HCO3 (21-25) mmol/L ABG Total CO2 (19-24) mmol/L ABG O2 Saturation (94-97) % Potassium (3.5-5.1) mmol/L Carbon Dioxide (22-30) mmol/L BUN 43 H (9-20) mg/dL Creatinine 1.51 H (0.66-1.25) mg/dL Glucose 62 L (74-99) mg/dL POC Glucose (mg/dL) 66 L 117 H (75-99) mg/dL Calcium (8.4-10.2) mg/dL AST (17-59) U/L ALT (4-49) U/L 09/14/20 09/14/20 Range/Units 05:55 11:42 WBC (3.8-10.6) k/uL MCV (80.0-100.0) fL MCH (25.0-35.0) pg RDW (11.5-15.5) % Neutrophils # (1.3-7.7) k/uL Lymphocytes # (1.0-4.8) k/uL ABG pH 7.53 H (7.35-7.45) ABG pCO2 32 L (35-45) mmHg ABG pO2 (83-108) mmHg ABG HCO3 26 H (21-25) mmol/L ABG Total CO2 27 H (19-24) mmol/L ABG O2 Saturation 98.0 H (94-97) % Potassium (3.5-5.1) mmol/L Carbon Dioxide (22-30) mmol/L BUN (9-20) mg/dL Creatinine (0.66-1.25) mg/dL Glucose (74-99) mg/dL POC Glucose (mg/dL) 107 H (75-99) mg/dL Calcium (8.4-10.2) mg/dL AST (17-59) U/L ALT (4-49) U/L
[2020-09-14] MEDS ORDERED: LEVOFLOXACIN 500MG-D5W PMX 500 MG in DEXTROSE/WATER 1 100ML.BAG IVPB ONE (16:00)
[2020-09-14 17:40] LABS: Glucose,Whole Blood 126 mg/dL (75-99)
--- NOTE | 2020-09-14 17:51 | PN ---
PROGRESS NOTE DATE OF SERVICE: 09/14/2020 This 84-year-old woman who was admitted with severe bradycardia and possible atrial flutter with varying block underwent transvenous pacemaker implantation. The patient is also on mechanical ventilation. The patient has severe hypothermia. Patient is mechanically sedated. Dr. Her is following the patient as well along with Cardiology. The most recent chest x-ray which I reviewed personally showed bilateral lesions. Daily interruption of sedation is being planned by Pulmonary. The patient is NO CODE currently. The patient is on IV steroids. PAST MEDICAL HISTORY: Reviewed. REVIEW OF SYSTEMS: Review of systems could not be taken because the patient is mechanically sedated. CURRENT MEDICATIONS: Reviewed and include: DuoNeb, Peridex, Proscar, Solu Medrol, I-Yohan, Narcan, PHYSICAL EXAM: Patient is mechanically sedated. Pulse 65, blood pressure 109/72, respiration 19. Temperature 98.6, and 101.2. HEENT: Conjunctivae normal. NECK: No JVD. CARDIOVASCULAR: S1, S2 muffled. RESPIRATION: Breath sounds diminished in the bases. Scattered rhonchi and crackles. ABDOMEN: Soft, nontender. LEGS are no edema. No swelling. NERVOUS SYSTEM: No focal deficits. LABS: At this time, WBC 11.7, hemoglobin 13.3. Otherwise initial Covid-19 is negative. ASSESSMENT: 1. Severe bradycardia, possibly atrial flutter with varying block and high- degree AV block on transvenous temporary pacemaker. 2. Acute hypoxic respiratory failure secondary to sedation. 3. Rule out pneumonia. 4. Severe hypothermia and fever, possible sepsis. 5. Anemia, normocytic. 6. Thrombocytopenia. 7. Possible dehydration present on admission. 8. Elevated AST/ALT. 9. History of chronic obstructive pulmonary disease. 10.History of degenerative joint disease. 11.History of prostate disorder. 12.History of scoliosis. 13.History of atrial flutter/fibrillation. 14.Chronic fibrosis and restrictive lung disease. 15.History of shingles. 16.History of peripheral neuropathy. 17.Change in mental status, metabolic encephalopathy. 18.Cholecystectomy. 19.History of tonsillectomy. 20.History of congestive heart failure with chronic diastolic dysfunction, ejection fraction 60-65 percent. 21.NO CODE, NO CPR, NO VENT. RECOMMENDATIONS AND DISCUSSION: In this 84-year-old gentleman who presented with multiple complex medical issues. We will monitor the patient closely. Continue the current medications, management and symptomatic treatment. Otherwise, the patient is started on apixaban, steroids. I would also recommend a short course of antibiotics, bronchodilators. Otherwise, mechanical ventilation per Dr. Her. Guarded prognosis because of multiple complex medical issues. Further recommendations to follow. I would also recommend a set of cultures also. UA did not show significant abnormality. The most of the chest lesions could be chronic but pneumonia is not completely ruled out in view of the persistent hypothermia and fever. MMODL / IJN: [id number] / MTDD
[2020-09-15 00:20] LABS: Glucose,Whole Blood 139 mg/dL (75-99)
[2020-09-15] MEDS: methylPREDNISolone SOD SUCCI 40 MG/ML 1 ML VIAL IV SCH ×3 (00:25→16:46)
[2020-09-15] MEDS: DEXMEDETOMIDINE/0.9% NACL(PMX) 400 MCG in EMPTY BAG 1 BAG IV SCH ×2 (00:33→18:34)
[2020-09-15] MEDS: NOREPINEPHRINE 4 MG in SODIUM CHLORIDE 0.9% 250 ML IV SCH ×4 (04:21→21:41)
[2020-09-15 04:44] LABS: Anisocytosis Moderate; Basophils % (A) 0 %; Eosinophils % (A) 0 %; HCT 36.2 % (39.0-53.0); HGB 11.7 gm/dL (13.0-17.5); Hypochromasia Slight; Lymphocytes # (A) 0.5 k/uL (1.0-4.8); Lymphocytes % (A) 4 %; MCH 23.8 pg (25.0-35.0); MCHC 32.2 g/dL (31.0-37.0); MCV 73.8 fL (80.0-100.0); Mean Platelet Volume 10.3; Microcytosis Moderate; Monocytes # (A) 0.7 k/uL (0-1.0); Monocytes % (A) 5 %; Neutrophils # (A) 12.7 k/uL (1.3-7.7); Neutrophils % (A) 90 %; Platelet Count 113 k/uL (150-450)
[2020-09-15 05:22] LABS: Calcium 8.7 mg/dL (8.4-10.2); Potassium 4.8 mmol/L (3.5-5.1)
[2020-09-15 05:22] LABS: ABG Base Excess 3.5 mmol/L; ABG HCO3 27 mmol/L (21-25); ABG Oxygen Saturation 98.5 % (94-97); ABG PCO2 36 mmHg (35-45); ABG PH 7.49 (7.35-7.45); ABG PO2 106 mmHg (83-108); ABG TCO2 28 mmol/L (19-24); Allen Test Performed? Yes
--- NOTE | 2020-09-15 07:16 | XR ---
EXAMINATION TYPE: XR chest 1V portable DATE OF EXAM: 09/15/2020 COMPARISON: Chest x-ray 09/14/2020 HISTORY: Intubated TECHNIQUE: Single frontal view of the chest is obtained. FINDINGS: Instrumentation is stable, endotracheal tube is overlying the tracheal air column. Bilater al prominent interstitium, airspace disease is again seen. Pleural parenchymal changes are similar to prior exam. Cardiac mediastinal silhouette is within normal limits. IMPRESSION: Correlate for pneumonia, congestive heart failure, there is likely pleural effusions.
[2020-09-15] MEDS: CHLORHEXIDINE GLUCONATE 15 ML CUP MUCOUS MEM SCH (08:13)
[2020-09-15] MEDS: MULTIVITAMINS, THERA 1 EACH TAB PO SCH (08:14)
[2020-09-15] MEDS: VIT A,C & E-LUTEIN-MINERALS 1 EACH TAB PO SCH (08:14)
[2020-09-15] MEDS: FINASTERIDE 5 MG TAB PO SCH (08:14)
[2020-09-15] MEDS: PANTOPRAZOLE 40 MG/10 ML VIAL IV SCH (08:15)
[2020-09-15] MEDS: SODIUM CHLORIDE 0.9% 1,000 ML IV SCH (11:57)
[2020-09-15 11:59] LABS: Glucose,Whole Blood 135 mg/dL (75-99)
--- NOTE | 2020-09-15 13:03 | P.PN ---
Subjective Progress Note Date: 09/15/20 Principal diagnosis: Complete heart block, cardiac arrest This is an 84-year-old white male with multiple medical problems including silicosis diagnosed in 1987, previous right lobectomy done at the [facility] in . History of hypertension, atrial fibrillation/flutter, maintained on Eliquis. Patient normally sees Dr. Elliott for his silicosis. And his occupational pneumoconiosis. Patient was brought in by his mostly because of weakness, and lethargy for the last 2 days. Patient has been refusing to come to the emergency room however upon the arrival to the ER, patient was found to have profound bradycardia with a rate in the 20-30. He also had pauses up to 6 seconds each with underlying atrial flutter. Seen by cardiology, and the patient was taken straight from the ER to the cardiac lab aide, and he underwent temporary pacemaker implantation from the right internal jugular approach. While in the lab aide, patient developed hypercapnic respiratory failure, with pCO2 as high as 120, required intubation and mechanical ventilation. Initially tried on BiPAP, but did not seem to improve his clinical status. Patient was placed on mechanical ventilation. I saw him in the ICU, placed on tidal volume is 450, assist control rate of 24, FiO2 was cut down to 35%, and PEEP of 5. ABG on 50% showed a pO2 of 154 pCO2 of 46 pH of 7.47. Earlier ABG before intubation showed a pO2 of 66 pCO2 of more than 120 and pH of 7.07. Chest x-ray showed diffuse bilateral airspace disease/fibrotic changes in both lungs, slightly worse compared to chest x-ray back in March 2020. At any rate patient was seen in the ICU, discussed his condition with the , he has a DO NOT RESUSCITATE CODE STATUS, right radial arterial line was placed for monitoring h is blood gases, and I would likely wean and extubate the patient in the next 24 hours. On 09/14/2020 patient seen in follow-up in the intensive care unit, he remains intubated, and sedated, on assist control mode of ventilation with a rate of 24, tidal volume is 450, FiO2 35% and PEEP of 5, despite his blood gases show pO2 of 89, pCO2 32, and pH of 7.53, he is currently on 0.7 at 30 per hour, nor epinephrine is at 13 mics per minute, dopamine has been discontinued, last night he did become hypotensive requiring an additional liter bolus, and we switched his dopamine to norepinephrine. He was given 1 dose of IV hydrocortisone 100 mg. His TSH was checked twice and both times was within normal limits at 0.658, and 0.817. Urinalysis was sent, showing 1+ protein, occasional bacteria, but no clear sign of infection, COVID-19 was negative, chest x-ray today shows chronic pleural parenchymal changes, and diffuse airspace opacities and bilateral pleural effusions, unchanged. Today's labs have been reviewed showing white blood cell count of 11.7, hemoglobin is 13.3, electrolytes were within normal limits, there is worsening of his renal function and BUN is 43, creatinine is 1.5 on today's labs. Echocardiogram showed preserved LV function of 55% and this was a limited study. Patient still has temporary transvenous pacemaker inserted in his right IJ, and he is on VVI 50, however patient back in A. fib right now and he was given a dose of Eliquis by cardiology last night. The patient is seen today September 15 2020 in follow-up in the intensive care unit. He is currently intubated, on the mechanical ventilator, assist control mode of 18, tidal volume 450, FiO2 35% and a PEEP of 5. Morning blood gases reveal a pO2 of 106, pCO2 35, pH 7.48. He is currently on Precedex at 0.6 m cg/kg per hour. 0.9 normal saline at 75 ML's per hour. Remains in a paced rhythm via temporary pacemaker programmed at VVI 50 in the right IJ, with complete heart block versus asystole underlying rhythm. Chest x-ray reveals bilateral prominent interstitium, airspace disease. Slightly improved compared to previous. Sputum culture pending. Blood culture reveals no growth to date. White count 14.0. Hemoglobin 11.7. Platelets 113. Sodium 143. Potassium 4.8. Creatinine 1.76. Glucose 147. He remains on bronchodilators, IV Solu-Medrol. While off sedation he is quite restless, sitting up in bed. Moving all 4 extremities. Objective - Vital Signs Vital signs: Vital Signs Temp 98.2 F 09/15/20 08:00 Pulse 60 09/15/20 11:00 Resp 11 L 09/15/20 11:00 BP 116/61 09/15/20 08:00 Pulse Ox 97 04/25/21 11:00 Intake & Output 09/14/20 09/15/20 09/15/20 18:59 06:59 18:59 Intake Total 1443.000 971.303 300.167 Output Total 324 295 82 Balance 1119.000 676.303 218.167 Weight 77.5 kg 79.7 kg Intake: IV 835 900 225 Levofloxacin 500Mg-D5w 100 Pmx 500 mg In Dextrose/ Water 1 100ml.bag @ 100 mls/hr IVPB ONCE ONE Rx#: [id number] Sodium Chloride 0.9% 1, 735 900 225 000 ml @ 75 mls/hr IV . [id number] [facility] Rx#:[id number] Intake, IV Titration 608.000 71.303 75.167 Amount Dexmedetomidine/0.9% NaCl 5.619 75.167 (Pmx) 400 mcg In Empty Bag 1 bag @ Titrate IV . Q0M [facility] Rx#:[id number] Norepinephrine 4 mg In 508.000 65.684 0 Sodium Chloride 0.9% 250 ml @ 0.05 MCG/KG/MIN 16. 421 mls/hr IV .[id number] [facility] Rx#:[id number] propofoL 1,000 mg In 100 Empty Bag 1 bag @ Titrate IV .Q0M [facility] Rx#: [id number] Output: Urine 324 295 82 Other: Voiding Method Indwelling Catheter Indwelling Catheter Indwelling Catheter ABP, PAP, CO, CI - Last Documented Arterial Blood Pressure 129/61 - Exam GENERAL EXAM: Sedated, intubated, 84-year-old white male, on assist control mode of ventilation, with FiO2 of 35% and PEEP of 5, comfortable in no apparent distress. HEAD: Normocephalic/atraumatic. EYES: Normal reaction of pupils, equal size. Conjunctiva pink, sclera white. NOSE: Clear with pink turbinates. THROAT: No erythema or exudates. NECK: No masses, no JVD, no thyroid enlargement, no adenopathy. Patient has a right IJ transvenous pacemaker connected to an external pacemaker box with VVI 50 CHEST: No chest wall deformity. Symmetrical expansion. LUNGS: Equal air entry with no crackles, wheeze, rhonchi or dullness. CVS: Irregular rate and rhythm, normal S1 and S2, no gallops, no murmurs, no rubs. Intrinsic rate is atrial fibrillation with a rate of 70, VVI 50 backup ABDOMEN: Soft, nontender. No hepatosplenomegaly, normal bowel sounds, no guarding or rigidity. EXTREMITIES: No clubbing, no edema, no cyanosis, 2+ pulses and upper and lower extremities. MUSCULOSKELETAL: Muscle strength and tone normal. SPINE: No scoliosis or deformity SKIN: No rashes CENTRAL NERVOUS SYSTEM: Sedated, intubated. No focal deficits, tone is normal in all 4 extremities. - Labs CBC & Chem 7: 09/15/20 04:35 09/15/20 04:35 Labs: Abnormal Lab Results - Last 24 Hours (Table) 09/14/20 09/15/20 09/15/20 Range/Units 17:39 00:18 04:35 WBC 14.0 H (3.8-10.6) k/uL Hgb 11.7 L (13.0-17.5) gm/dL Hct 36.2 L (39.0-53.0) % MCV 73.8 L (80.0-100.0) fL MCH 23.8 L (25.0-35.0) pg RDW 20.0 H (11.5-15.5) % Plt Count 113 L (150-450) k/uL Neutrophils # 12.7 H (1.3-7.7) k/uL Lymphocytes # 0.5 L (1.0-4.8) k/uL ABG pH (7.35-7.45) ABG HCO3 (21-25) mmol/L ABG Total CO2 (19-24) mmol/L ABG O2 Saturation (94-97) % Chloride (98-107) mmol/L BUN (9-20) mg/dL Creatinine (0.66-1.25) mg/dL Glucose (74-99) mg/dL POC Glucose (mg/dL) 126 H 139 H (75-99) mg/dL 09/15/20 09/15/20 09/15/20 Range/Units 04:35 05:15 11:57 WBC (3.8-10.6) k/uL Hgb (13.0-17.5) gm/dL Hct (39.0-53.0) % MCV (80.0-100.0) fL MCH (25.0-35.0) pg RDW (11.5-15.5) % Plt Count (150-450) k/uL Neutrophils # (1.3-7.7) k/uL Lymphocytes # (1.0-4.8) k/uL ABG pH 7.49 H (7.35-7.45) ABG HCO3 27 H (21-25) mmol/L ABG Total CO2 28 H (19-24) mmol/L ABG O2 Saturation 98.5 H (94-97) % Chloride 110 H (98-107) mmol/L BUN 56 H (9-20) mg/dL Creatinine 1.76 H (0.66-1.25) mg/dL Glucose 147 H (74-99) mg/dL POC Glucose (mg/dL) 135 H (75-99) mg/dL Microbiology - Last 24 Hours (Table) 09/15/20 04:02 Sputum Culture - Preliminary Sputum 09/13/20 15:22 Blood Culture - Preliminary Blood No Growth after 24 hours Assessment and Plan Assessment: 1 Acute on chronic hypercapnic respiratory failure most likely secondary to procedural sedation, requiring intubation and placement on mechanical ventilator on 09/13/2020. Extubated to BiPAP on 09/15/2020. 2 Third-degree AV block, requiring placement of temporary transvenous pacemaker in the right IJ area on 09/13/2020 3 Acute kidney injury 4 Hypotension, related to bradycardia, and hypovolemia, do not suspect sepsis, the patient was given 1 dose of hydrocortisone 100 mg on a trial basis 5 History of atrial fibrillation/A flutter on Eliquis on an outpatient basis 6 History of silicosis/pulmonary fibrosis, chronic occupation pneumoconiosis/silicosis and history of COPD status post lobectomy 7 Essential hypertension 8 History of diverticular disease 9 History of postherpetic polyneuropathy involving left upper extremity 10 History of bowel resection and colostomy with subsequent reversal 11 History of abdominal wall hernia Plan: The patient was seen and evaluated by Dr. Her Chest x-ray, ABGs and labs reviewed Patient was extubated to BiPAP 12/ and 40% FiO2 Remains on Precedex Decrease IV fluids to 50 MLS per hour Resume the patient's Eliquis if OK with cardiology Cardiology on the case regarding heart block We will continue to follow and make further recommendations based on his clinical status Critical care time 37 minutes I, the cosigning physician, performed a history & physical examination of the patient. Lungs sounds crackles in the bilateral posterior bases. Maintaining good O2 saturations in the 90s on 35% FiO2 via the mechanical ventilator. I discussed the assessment and plan of care with my nurse practitioner, Cheyenne Bonilla. I attest to the above note as dictated by her.
--- NOTE | 2020-09-15 15:31 | PN ---
PROGRESS NOTE DATE OF SERVICE: 09/16/2011 INTERVAL HISTORY: This 84-year-old gentleman was admitted with severe bradycardia, possibly atrial flutter with varying block and high-degree blocks on temporary pacemaker. The patient is extubated. The patient is confused. Most recent chest x-ray which was reviewed personally by me showed significant bilateral lesions, mostly chronic in nature at this time. Cardiology evaluated the patient. The patient is on Ventimask. PAST MEDICAL HISTORY: Reviewed. REVIEW OF SYSTEMS: Could not be taken because the patient is confused. CURRENT MEDICATIONS: Reviewed include DuoNeb, Eliquis, Proscar, Levaquin, Solu-Medrol, multivitamins and I- Yohan, Narcan, norepinephrine. PHYSICAL EXAM: GENERAL: Patient is stuporous. VITAL SIGNS: Pulse 60, blood pressure 131/64, respiration 10, temperature 98.8, pulse ox 98% on BiPAP 40%. HEENT: Conjunctivae normal. NECK: No jugular venous distention. No carotid bruits. No lymph node enlargement. RESPIRATORY: Breath sounds diminished at the bases. No rhonchi, no crackles. HEART: S1 and S2, muffled. ABDOMEN: Soft, no tenderness. No masses palpable. EXTREMITIES: No edema, no swelling. NERVOUS: No focal deficits. LABS: WBC 14.8, hemoglobin 11.7, platelets 113, ABGs noted and creatinine is 1.76. ASSESSMENT: 1. Severe bradycardia, possibly atrial flutter with varying block with high-degree AV block on transvenous temporary pacemaker. 2. Acute hypoxic respiratory failure secondary to sedation, status post extubation. 3. Rule out pneumonia. 4. Severe hypothermia and fever, possible sepsis present on admission. 5. Change in mental status acute metabolic encephalopathy. 6. Anemia, normocytic. 7. Thrombocytopenia. 8. Possible dehydration present on admission. 9. Elevated AST ALT. 10.History of chronic obstructive pulmonary disease. 11.History of degenerative joint disease. 12.History of prostate disorder. 13.History of scoliosis. 14.History of atrial fibrillation. 15.Chronic fibrosis and restrictive lung disease. 16.History of shingles. 17.History of peripheral neuropathy. 18.Change in mental status acute metabolic encephalopathy. 19.Cholecystectomy. 20.History of tonsillectomy. 21.History of congestive heart failure with chronic diastolic dysfunction ejection fraction 60% to 65%. 22.NO CODE, NO CPR, NO VENT. RECOMMENDATIONS AND DISCUSSION: I recommend to continue current medication, continue symptomatic treatment. Continue with bronchodilators. Continue with empiric antibiotics. Cultures are negative so far. Closely with Cardiology and Pulmonology. Decision regarding permanent pacemaker per Cardiology. Further recommendations to follow. Repeat lytes. The patient is also on a small dose of IV steroids. Will order repeat lytes and repeat chest x-ray also. Discussed with the family at length. EMMETT / WILLN: [id number] /
[2020-09-15] MEDS ORDERED: LEVOFLOXACIN 250MG-D5W PMX 250 MG in DEXTROSE/WATER 1 50ML.BAG IVPB SCH (16:00)
[2020-09-15 17:10] LABS: Glucose,Whole Blood 139 mg/dL (75-99)
--- NOTE | 2020-09-15 20:04 | P.PN ---
Subjective HISTORY OF PRESENTING ILLNESS This is a pleasant 84-year-old with past medical history significant for Medical history of right lobectomy secondary to silicosis in 1987, hypertension, atrial flutter on qu and questionable concern of heart failure in March 2020 however normal BNP at the time who presents secondary to altered mental status. Patient is nonverbal currently and history is supplied by . Patient's states that over last 2 days patient has been more lethargic and did not want to come to the emergency department. Patient was found to be profoundly bradycardic with heart rates in the 20s to 30s and occasional pauses up to 6 seconds with underlying atrial flutter. denies any recent chest pain, pressure, shortness of breath, fevers or chills. She does believe that his feet have been cooler and he has chronic issues with mild lower extremity swelling. In he was noted to have bilateral effusions which were felt more pulmonary than heart failure. In office with Dr. Figueroa. His last echo showed p reserved ejection fraction 65% from 03/2020. Since heart rate in the emergency department has been in the 20s and 30s and patient was placed on a dopamine drip with heart rate mildly improved into the 40s. 09/14 Patient seen and examined. Patient remains intubated on 35% FiO2 with a PEEP of 5. He underwent TVP placement yesterday afternoon however developed worsened altered mental status with a CO2 greater than 120 and therefore was intubated. Sedation has been weaned however not responding much. His CVP has been weaned and currently in A. fib with a heart rate in the 60s and 70s. He was taken off of the dopamine drip is currently on a low-dose of vasopressors. 09/15 Patient seen and examined. Patient extubated to BiPAP however still not fully alert. Patient not following commands however grimaces to pain. Patient still remains on low-dose of vasopressors and per nursing if vasopressors are turned off, blood pressures dropped into the 60s systolic. Patient's heart rate was i mproved yesterday, not needing the TVP however today appears dependent on the TVP. Unable to follow commands and not eating anything by mouth. REVIEW OF SYSTEMS At the time of my exam: Unable to obtain secondary to altered mental status PHYSICAL EXAMINATION Vital signs reviewed. CONSTITUTIONAL: Ill appearing, on BIPAP, not following commands HEENT: Head is normocephalic. Pupils are equal, round. Sclerae anicteric. Mucous membranes of the mouth are moist. No JVD. No carotid bruit. CHEST EXAMINATION: Lungs are clear to auscultation. No chest wall tenderness is noted on palpation or with deep breathing. HEART EXAMINATION: Regular, S1, S2 heard. No murmurs, gallops or rub. ABDOMEN: Soft, nontender. Positive bowel sounds. EXTREMITIES: 2+ peripheral pulses, 1+ lower extremity edema and no calf tenderness. NEUROLOGIC EXAMINATION: Patient is nonverbal and confused. ASSESSMENT 1. Symptomatic bradycardia rates in the 20s to 30s 2. Altered mental status, initially thought related to hypoperfusion from bradycardia and CO2 narcosis however patient not recovering. CT brain no acute process 3. History of silicosis status post lobectomy 4. Essential hypertension 5. Typical atrial flutter on anticoagulation with Eliquis 6. Hypotension on vasopressors 7. CO2 narcosis PLAN Patient was extubated successfully however still remains altered mental status and not appropriate. Altered mental status initially thought related to hypoperfusion as well as CO2 narcosis however still remains altered and would consider neurology evaluation. Patient will eventually need permanent pacemaker placement however we will need to evaluate for neurologic recovery and for family's wishes. Unclear of etiology of mild hypotension on small amount of vasopressors. Continue to monitor closely. Further recommendations to follow. Objective - Vital Signs Vital signs: Vital Signs Temp 92.6 F L 09/15/20 16:00 Pulse 60 09/15/20 18:00 Resp 8 L 09/15/20 18:00 BP 129/58 09/15/20 13:00 Pulse Ox 97 09/15/20 18:00 Intake & Output 09/15/20 09/15/20 09/16/20 06:59 18:59 06:59 Intake Total 033.183 2329.697 Output Total 295 310 Balance 676.303 897.697 Weight 79.7 kg Intake: IV 900 925 Levofloxacin 500Mg-D5w 100 Pmx 500 mg In Dextrose/ Water 1 100ml.bag @ 100 mls/hr IVPB ONCE ONE Rx#: [id number] Sodium Chloride 0.9% 1, 900 825 000 ml @ 75 mls/hr IV . [id number] [facility] Rx#:[id number] Intake, IV Titration 71.303 282.697 Amount Dexmedetomidine/0.9% NaCl 5.619 94.381 (Pmx) 400 mcg In Empty Bag 1 bag @ Titrate IV . Q0M [facility] Rx#:[id number] Norepinephrine 4 mg In 65.684 188.316 Sodium Chloride 0.9% 250 ml @ 0.05 MCG/KG/MIN 16. 421 mls/hr IV .[id number] [facility] Rx#:[id number] Output: Urine 295 310 Other: Voiding Method Indwelling Catheter Indwelling Catheter ABP, PAP, CO, CI - Last Documented Arterial Blood Pressure 110/53 - Labs CBC & Chem 7: 09/15/20 04:35 09/15/20 04:35 Labs: Abnormal Lab Results - Last 24 Hours (Table) 09/15/20 09/15/20 09/15/20 Range/Units 00:18 04:35 04:35 WBC 14.0 H (3.8-10.6) k/uL Hgb 11.7 L (13.0-17.5) gm/dL Hct 36.2 L (39.0-53.0) % MCV 73.8 L (80.0-100.0) fL MCH 23.8 L (25.0-35.0) pg RDW 20.0 H (11.5-15.5) % Plt Count 113 L (150-450) k/uL Neutrophils # 12.7 H (1.3-7.7) k/uL Lymphocytes # 0.5 L (1.0-4.8) k/uL ABG pH (7.35-7.45) ABG HCO3 (21-25) mmol/L ABG Total CO2 (19-24) mmol/L ABG O2 Saturation (94-97) % Chloride 110 H (98-107) mmol/L BUN 56 H (9-20) mg/dL Creatinine 1.76 H (0.66-1.25) mg/dL Glucose 147 H (74-99) mg/dL POC Glucose (mg/dL) 139 H (75-99) mg/dL 09/15/20 09/15/20 09/15/20 Range/Units 05:15 11:57 17:09 WBC (3.8-10.6) k/uL Hgb (13.0-17.5) gm/dL Hct (39.0-53.0) % MCV (80.0-100.0) fL MCH (25.0-35.0) pg RDW (11.5-15.5) % Plt Count (150-450) k/uL Neutrophils # (1.3-7.7) k/uL Lymphocytes # (1.0-4.8) k/uL ABG pH 7.49 H (7.35-7.45) ABG HCO3 27 H (21-25) mmol/L ABG Total CO2 28 H (19-24) mmol/L ABG O2 Saturation 98.5 H (94-97) % Chloride (98-107) mmol/L BUN (9-20) mg/dL Creatinine (0.66-1.25) mg/dL Glucose (74-99) mg/dL POC Glucose (mg/dL) 135 H 139 H (75-99) mg/dL Microbiology - Last 24 Hours (Table) 09/14/20 16:45 Blood Culture - Preliminary Blood No Growth after 24 hours 09/13/20 15:22 Blood Culture - Preliminary Blood No Growth after 48 hours 09/15/20 04:02 Gram Stain - Preliminary Sputum Sputum Culture - Preliminary
[2020-09-15] MEDS ORDERED: APIXABAN 2.5 MG TABLET PO SCH (21:00)
[2020-09-16] MEDS: methylPREDNISolone SOD SUCCI 40 MG/ML 1 ML VIAL IV SCH
[2020-09-16 00:45] LABS: Glucose,Whole Blood 120 mg/dL (75-99)
[2020-09-16] MEDS ORDERED: DEXMEDETOMIDINE/0.9% NACL(PMX) 400 MCG in EMPTY BAG 1 BAG IV SCH (00:45)
[2020-09-16] MEDS: NOREPINEPHRINE 4 MG in SODIUM CHLORIDE 0.9% 250 ML IV SCH ×3 (03:14→09:35)
[2020-09-16] MEDS: SODIUM CHLORIDE 0.9% 1,000 ML IV SCH (03:16)
[2020-09-16 04:12] LABS: Albumin 3.4 g/dL (3.5-5.0); Calcium 8.8 mg/dL (8.4-10.2); Potassium 5.8 mmol/L (3.5-5.1); Total Bilirubin 0.5 mg/dL (0.2-1.3)
[2020-09-16 04:30] LABS: Anisocytosis Slight; HCT 44.7 % (39.0-53.0); Hypochromasia Marked; MCH 22.9 pg (25.0-35.0); Mean Platelet Volume 8.4; Microcytosis Slight; Platelet Count 163 k/uL (150-450); RBC 5.65 m/uL (4.30-5.90); RDW 19.8 % (11.5-15.5); WBC 16.1 k/uL (3.8-10.6)
[2020-09-16 05:00] LABS: Band Neutrophils % 2 %; Lymphocytes # (M) 0.81 k/uL (1.0-4.8); Monocytes # (M) 0.32 k/uL (0-1.0); Myelocytes # (M) 0.16 k/uL (0); Myelocytes % 1 %; Neutrophils % (M) 92 %; Nucleated Red Blood Cells 0 /100 WBC (0-0); Poikilocytosis (M) Present; Target Cells Present; Total Cells Counted 200
--- NOTE | 2020-09-16 07:56 | XR ---
EXAMINATION TYPE: XR chest 1V portable DATE OF EXAM: 09/16/2020 CLINICAL HISTORY: Difficulty breathing progress study. TECHNIQUE: Single AP portable semiupright view of the chest is obtained. COMPARISON: Chest x-ray from one day earlier and older studies. Chest CT February 08, 2020 FINDINGS: Interval extubation with removal of endotracheal and orogastric tubes. Stimulator device o verlying the thorax into neck is redemonstrated. Cardiac silhouette size is stable and upper limits of normal. Persistent small bilateral pleural eff usions and bibasilar opacities on background chronic parenchymal changes greatest in the right lung. Bilateral hilar prominence with calcified adenopathy on CT and retraction or upper lung volume loss r edemonstrated. Cholecystectomy clips again seen. IMPRESSION: Chronic changes with small bilateral pleural effusions and associated bibasilar atelectas is and/or infiltrate are all redemonstrated. No significant change from most recent x-ray.
[2020-09-16 08:17] VITALS: TEMP 94.7
[2020-09-16] MEDS: FINASTERIDE 5 MG TAB PO SCH (09:12)
[2020-09-16] MEDS: VIT A,C & E-LUTEIN-MINERALS 1 EACH TAB PO SCH (09:12)
[2020-09-16] MEDS: MULTIVITAMINS, THERA 1 EACH TAB PO SCH (09:12)
--- NOTE | 2020-09-16 10:54 | P.PN ---
Subjective Progress Note Date: 09/16/20 Principal diagnosis: 3 AV block, acute on chronic hypercapnic respiratory failure This is an 84-year-old white male with multiple medical problems including silicosis diagnosed in 1987, previous right lobectomy done at the [facility] in . History of hypertension, atrial fibrillation/flutter, maintained on Eliquis. Patient normally sees Dr. Elliott for his silicosis. And his occupational pneumoconiosis. Patient was brought in by his mostly because of weakness, and lethargy for the last 2 days. Patient has been refusing to come to the emergency room however upon the arrival to the ER, patient was found to have profound bradycardia with a rate in the 20-30. He also had pauses up to 6 seconds each with underlying atrial flutter. Seen by cardiology, and the patient was taken straight from the ER to the cardiac label coder, and he underwent temporary pacemaker implantation from the right internal jugular approach. While in the label coder, patient developed hypercapnic respiratory failure, with pCO2 as high as 120, required intubation and mechanical ventilation. Initially tried on BiPAP, but did not seem to improve his clinical status. Patient was placed on mechanical ventilation. I saw him in the ICU, placed on tidal volume is 450, assist control rate of 24, FiO2 was cut down to 35%, and PEEP of 5. ABG on 50% showed a pO2 of 154 pCO2 of 46 pH of 7.47. Earlier ABG before intubation showed a pO2 of 66 pCO2 of more than 120 and pH of 7.07. Chest x-ray showed diffuse bilateral airspace disease/fibrotic changes in both lungs, slightly wors e compared to chest x-ray back in March 2020. At any rate patient was seen in the ICU, discussed his condition with the , he has a DO NOT RESUSCITATE CODE STATUS, right radial arterial line was placed for monitoring his blood gases, and I would likely wean and extubate the patient in the next 24 hours. On 09/14/2020 patient seen in follow-up in the intensive care unit, he remains intubated, and sedated, on assist control mode of ventilation with a rate of 24, tidal volume is 450, FiO2 35% and PEEP of 5, despite his blood gases show pO2 of 89, pCO2 32, and pH of 7.53, he is currently on 0.7 at 30 per hour, norepinephrine is at 13 mics per minute, dopamine has been discontinued, last night he did become hypotensive requiring an additional liter bolus, and we switched his dopamine to norepinephrine. He was given 1 dose of IV hydrocortisone 100 mg. His TSH was checked twice and both times was within normal limits at 0.658, and 0.817. Urinalysis was sent, showing 1+ protein, occ asional bacteria, but no clear sign of infection, COVID-19 was negative, chest x-ray today shows chronic pleural parenchymal changes, and diffuse airspace opacities and bilateral pleural effusions, unchanged. Today's labs have been reviewed showing white blood cell count of 11.7, hemoglobin is 13.3, electrolytes were within normal limits, there is worsening of his renal function and BUN is 43, creatinine is 1.5 on today's labs. Echocardiogram showed preserved LV function of 55% and this was a limited study. Patient still has temporary transvenous pacemaker inserted in his right IJ, and he is on VVI 50, however patient back in A. fib right now and he was given a dose of Eliquis by cardiology last night. On 09/16/2020 patient seen in intensive care unit, he was extubated yesterday on 09/15/2020, to BiPAP support, early this morning he was noted to be increasingly more lethargic, his BiPAP settings of 12/5 and FiO2 of 50%. Upon her exam patient is pretty well unresponsive to deep painful stimuli, his breath sounds are very diminished, he is on norepinephrine at 0.9 mics per kilo per minute, and 0.9 is infusing at 75 ML per hour. His Precedex drip has been discontinued this morning, his CODE STATUS has been changed to a DO NOT RESUSCITATE by his family. This morning's chest x-ray shows chronic changes with small bilateral pleural effusions and associated back basilar atelectasis and/or infiltrates. Patient is on empiric antibiotics in the form of Levaquin, he is on IV Solu- Medrol 40 every 8 hours 8 hours. This morning his white blood cell count is 16.1, hemoglobin is 13, sodium is 145, potassium is 5.8, chloride is 108, BUN 16, creatinine is 1.87, his AST is 148, and ALT is 84, urine output is diminished, he is only producing 5-10 mL of urine per hour. His condition has significantly deteriorated in the last several hours since early this morning, his family was alerted to his change of condition. His and his son are on their way in, and at that were informed that patient's prognosis is poor that he will likely will not survive through today Objective - Vital Signs Vital signs: Vital Signs Temp 94.7 F L 09/16/20 08:00 Pulse 77 09/16/20 10:00 Resp 34 H 09/16/20 10:00 BP 109/57 09/16/20 10:00 Pulse Ox 89 L 09/16/20 10:00 Intake & Output 09/15/20 09/16/20 09/16/20 18:59 06:59 18:59 Intake Total 1657.059 0241.132 479 Output Total 310 260 20 Balance 450.454 3721.132 459 Weight 79.7 kg Intake: IV 925 900 225 Levofloxacin 500Mg-D5w 100 Pmx 500 mg In Dextrose/ Water 1 100ml.bag @ 100 mls/hr IVPB ONCE ONE Rx#: [id number] Sodium Chloride 0.9% 1, 825 900 225 000 ml @ 75 mls/hr IV . [id number] [facility] Rx#:[id number] Intake, IV Titration 282.697 531.132 254 Amount Dexmedetomidine/0.9% NaCl 94.381 84.021 (Pmx) 400 mcg In Empty Bag 1 bag @ Titrate IV . Q0M [facility] Rx#:[id number] Norepinephrine 4 mg In 188.316 447.111 254 Sodium Chloride 0.9% 250 ml @ 0.05 MCG/KG/MIN 16. 421 mls/hr IV .[id number] [facility] Rx#:[id number] Output: Urine 310 260 20 Other: Voiding Method Indwelling Catheter Indwelling Catheter Indwelling Catheter ABP, PAP, CO, CI - Last Documented Arterial Blood Pressure 54/33 - Exam GENERAL EXAM: 84-year-old white male, unresponsive, on BiPAP support with pressures of 12 and 5 and FiO2 of 50% comfortable in no apparent distress. HEAD: Normocephalic/atraumatic. EYES: Normal reaction of pupils, equal size. Conjunctiva pink, sclera white. NOSE: Clear with pink turbinates. THROAT: No erythema or exudates. NECK: No masses, no JVD, no thyroid enlargement, no adenopathy. Patient has a right IJ transvenous pacemaker connected to an external pacemaker box with VVI 50 CHEST: No chest wall deformity. Symmetrical expansion. LUNGS: Equal air entry with no crackles, wheeze, rhonchi or dullness. CVS: Irregular rate and rhythm, normal S1 and S2, no gallops, no murmurs, no rubs. Intrinsic rate is atrial fibrillation with a rate of 70, VVI 50 backup ABDOMEN: Soft, nontender. No hepatosplenomegaly, normal bowel sounds, no guarding or rigidity. EXTREMITIES: No clubbing, 1-2+ generalized edema in upper and lower extremities, abdomen no cyanosis, 2+ pulses and upper and lower extremities. MUSCULOSKELETAL: Muscle strength and tone normal. SPINE: No scoliosis or deformity SKIN: No rashes CENTRAL NERVOUS SYSTEM: Sedated, intubated. No focal deficits, tone is normal in all 4 extremities. - Labs CBC & Chem 7: 09/16/20 03:40 09/16/20 03:40 Labs: Abnormal Lab Results - Last 24 Hours (Table) 09/15/20 09/15/20 09/16/20 Range/Units 11:57 17:09 00:43 WBC (3.8-10.6) k/uL MCV (80.0-100.0) fL MCH (25.0-35.0) pg MCHC (31.0-37.0) g/dL RDW (11.5-15.5) % Neutrophils # (Manual) (1.3-7.7) k/uL Lymphocytes # (Manual) (1.0-4.8) k/uL Myelocytes # (Manual) (0) k/uL Potassium (3.5-5.1) mmol/L Chloride (98-107) mmol/L BUN (9-20) mg/dL Creatinine (0.66-1.25) mg/dL Glucose (74-99) mg/dL POC Glucose (mg/dL) 135 H 139 H 120 H (75-99) mg/dL AST (17-59) U/L ALT (4-49) U/L Albumin (3.5-5.0) g/dL 09/16/20 09/16/20 Range/Units 03:40 03:40 WBC 16.1 H (3.8-10.6) k/uL MCV 79.0 L D (80.0-100.0) fL MCH 22.9 L (25.0-35.0) pg MCHC 29.0 L (31.0-37.0) g/dL RDW 19.8 H (11.5-15.5) % Neutrophils # (Manual) 15.10 H (1.3-7.7) k/uL Lymphocytes # (Manual) 0.81 L (1.0-4.8) k/uL Myelocytes # (Manual) 0.16 H (0) k/uL Potassium 5.8 H (3.5-5.1) mmol/L Chloride 108 H (98-107) mmol/L BUN 68 H (9-20) mg/dL Creatinine 1.87 H (0.66-1.25) mg/dL Glucose 133 H (74-99) mg/dL POC Glucose (mg/dL) (75-99) mg/dL AST 141 H (17-59) U/L ALT 84 H (4-49) U/L Albumin 3.4 L (3.5-5.0) g/dL Microbiology - Last 24 Hours (Table) 09/14/20 16:45 Blood Culture - Preliminary Blood No Growth after 24 hours 09/13/20 15:22 Blood Culture - Preliminary Blood No Growth after 48 hours 09/15/20 04:02 Gram Stain - Preliminary Sputum Sputum Culture - Preliminary Assessment and Plan Plan: Assessment: #1. Acute on chronic hypercapnic respiratory failure most likely secondary to procedural sedation, requiring intubation and placement on mechanical ventilator on 09/13/2020, patient was extubated on 09/15/2020, to BiPAP support, and today on 09/16/2020 patient is unresponsive, hypotensive. #2. Third-degree AV block, requiring placement of temporary transvenous pacemaker in the right IJ area on 09/13/2020, today on 09/16/2020 patient is in atrial fibrillation with a controlled rate 77, and his per transvenous pacemaker is in VVI 50 backup #3. Acute kidney injury, worsening #4. Hypotension, related to bradycardia, and hypovolemia, do not suspect sepsis, the patient was given 1 dose of hydrocortisone 100 mg on a trial basis #3. History of atrial fibrillation/A flutter on Eliquis on an outpatient basis #4. History of silicosis/pulmonary fibrosis, chronic occupation pneumoconiosis/silicosis and history of COPD status post lobectomy #5. Essential hypertension #6. History of diverticular disease #7. History of postherpetic polyneuropathy involving left upper extremity #8. History of bowel resection and colostomy with subsequent reversal #9. History of abdominal wall hernia Plan: Patient's condition has significantly worsened since early hours of this morning BiPAP settings were adjusted to 16/8, to give the family adequate time to arrive here Prognosis is very poor, and patient is not expected to survive through today CODE STATUS is DO NOT RESUSCITATE Continue vasopressor support, and supportive care until the family arrives here Family's intention is to withdraw care and make patient comfortable I performed a history & physical examination of the patient and discussed their management with my nurse practitioner, Madelyn Hill. I reviewed the nurse practitioner's note and agree with the documented findings and plan of care. Lung sounds are positive for diminished breath sounds. The findings and the impression was discussed with the patient. I attest to the documentation by the nurse practitioner. On Time with Patient: Greater than 30
[2020-09-16] MEDS ORDERED: ONDANSETRON 4 MG/2 ML VIAL IVP PRN (10:56)
[2020-09-16] MEDS ORDERED: LORazepam 2 MG/ML INJ IV PRN (10:56)
[2020-09-16] MEDS ORDERED: MORPHINE SULFATE 2 MG/ML SYRINGE IV PRN (10:56)
[2020-09-16] MEDS ORDERED: MORPHINE SULFATE (100 MG/2 ML) 100 MG in SODIUM CHLORIDE 0.9% 100 ML IV SCH (11:00)
[2020-09-16 11:53] VITALS: BP 46/28; PULSE 76; RESP 21
--- NOTE | 2020-09-16 21:00 | DS ---
DISCHARGE SUMMARY PRELIMINARY CAUSE OF : Cardiac arrhythmia with severe bradycardia. OTHER DIAGNOSES: 1. Coronary atherosclerosis. 2. Acute hypoxic respiratory failure secondary to sedation and status post extubation. 3. Possible pneumonia, Gram-negative. 4. Severe hyperthermia and fever, possible sepsis, present on admission. 5. Change in mental status, acute metabolic encephalopathy. 6. Anemia, normocytic. 7. Thrombocytopenia. 8. Dehydration, present on admission. 9. Elevated AST, ALT. 10.History of chronic obstructive pulmonary disease. 11.Degenerative joint disease. 12.History of prostate disorder. 13.History of scoliosis. 14.History of atrial fibrillation. 15.Chronic fibrosis and restrictive lung disease. 16.History of shingles. 17.History of peripheral neuropathy. 18.Cholecystectomy. 19.History of tonsillectomy. 20.History of congestive heart failure with chronic diastolic dysfunction, ejection fraction 60% to 65%. 21.NO CODE, NO CPR, NO VENT. HISTORY OF PRESENT ILLNESS: This 84-year-old gentleman with a past medical history of multiple medical problems, being followed by Dr. Oconnell in the outpatient setting, was admitted with severe bradycardia and cardiac arrhythmia. The patient was monitored closely. Patient also had acute respiratory failure with possible pneumonia. The patient was intubated, mechanically ventilated in the ICU. The patient was extubated, but the patient's condition progressively got worse and the patient was NO CODE. The patient succumbed to his above-mentioned illnesses during the hospitalization. Prognosis remained extremely guarded throughout the hospitalization. The patient was seen by multiple consultants during the hospitalization. The prognosis remained extremely guarded. Cardiology and Pulmonary saw the patient; please refer to the multiple progress notes and consultation notes for further details. The patient was NO CODE, NO CPR, NO VENT and the family decided to go with comfort measures. MMODL / IJN: [id number] /
--- NOTE | 2020-09-24 12:27 | CDI ---
Documentation Clarification Form Date: 09/24/2020 11:36:51 AM From: Nicolasa Gill RN, CCDS Email: [email or web address] Admit Date: 09/13/2020 11:29:00 AM Patient Name: Pasquale Benson Visit Number: [id number] Discharge Date: 09/16/2020 12:07:00 PM ATTENTION: The Clinical Documentation Specialists (CDI) and [facility] Coding Staff appreciate your assistance in clarifying documentation. Please respond to the clarification below the line at the bottom and electronically sign. The CDI & [facility] Coding staff will review the response and follow-up if needed. Please note: Queries are made part of the Legal Health Record. If you have any questions, please contact the author of this message via ITS. Dr. Elijah Prater Severe hypothermia and fever, possible sepsis present on admission is documented in your progress notes and discharge summary. Additional clarification is requested. History/Risk Factors: COPD, prostate disorder, silicosis pneumoconiosis Clinical Indicators: 09/13 ED note: "Patient had one blood pressure at 88, otherwise has been stable. Heart rate has dropped as low as into the 20s and patient did have a witnessed as lasting possibly up to 5 seconds. Case was discussed with Dr. Shoemaker with cardiology who will do pacemaker." 09/13 H&P: "Weakness and change in mental status and also feeling cold, clamminess. The EKG showed atrial flutter with varying block, severe bradycardia." 09/13 Cardiology: Symptomatic bradycardia rates in the 20s to 30s. Altered mental status, likely related to hypo perfusion from bradycardia. 09/13 Pulmonary: "patient was taken straight from the ER to the cardiac home performance laborer, and he underwent temporary pacemaker implantation from the right internal jugular approach. While in the home performance laborer, patient developed hypercapnic respiratory failure, with pCO2 as high as 120, required intubation and mechanical ventilation." 09/14 Pulmonary: "Hypotension, related to bradycardia, and hypovolemia, do not suspect sepsis, the patient was given 1 dose of hydrocortisone 100 mg on a trial basis." 09/16 Discharge summary: "Severe hyperthermia and fever, possible sepsis, present on admission. Preliminary cause of : Possible pneumonia, Gram-negative." 09/13 CXR: No evidence for acute pulmonary disease 09/15 CXR: Correlate for pneumonia, congestive heart failure, there is likely pleural effusions. 09/15 Sputum: normal respiratory pooja along with pseudomonas fluorescans 09/13 and 09/14 Blood cultures no growth Treatment: Empiric IV Levaquin 09/14-09/15, IV Levophed 09/13-09/16, IV Dopamine 09/13-09/14. 0.9 NS 1L bolus on 09/13 Please clarify Sepsis diagnosis: [ ] Yes, Sepsis was present and due to (please specify) POA [ ] No, Sepsis was ruled out [ ] Other (please specify diagnosis) [ ] Unable to determine (Template Last Revised: July 2020) Sepsis was present and due to possibly pneumonia POA MTDD
--- NOTE | 2020-09-24 12:58 | CDI ---
Documentation Clarification Form Date: 09/24/2020 11:36:51 AM From: Nicolasa Gill RN, CCDS Email: [email or web address] Admit Date: 09/13/2020 11:29:00 AM Patient Name: Pasquale Benson Visit Number: [id number] Discharge Date: 09/16/2020 12:07:00 PM ATTENTION: The Clinical Documentation Specialists (CDI) and [facility] Coding Staff appreciate your assistance in clarifying documentation. Please respond to the clarification below the line at the bottom and electronically sign. The CDI & [facility] Coding staff will review the response and follow-up if needed. Please note: Queries are made part of the Legal Health Record. If you have any questions, please contact the author of this message via ITS. Dr. Elijah Prater Your patient had hypotension and was found to be profoundly bradycardic. Based on this information and the findings below, is there an additional diagnosis that is clinically appropriate for this patient? Patient history/risk factors: COPD, prostate disorder, silicosis pneumoconiosis Clinical Indicators: 09/13 ED note: "Patient had one blood pressure at 88, otherwise has been stable. Heart rate has dropped as low as into the 20s and patient did have a witnessed as lasting possibly up to 5 seconds. Case was discussed with Dr. Shoeamker with cardiology who will do pacemaker." 09/13 H&P: "Weakness and change in mental status and also feeling cold, clamminess. The EKG showed atrial flutter with varying block, severe bradycardia." 09/13 Cardiology: Symptomatic bradycardia rates in the 20s to 30s. Altered mental status, likely related to hypo perfusion from bradycardia. 09/13 Pulmonary: "patient was taken straight from the ER to the cardiac phlebotomist medical lab assistant, and he underwent temporary pacemaker implantation from the right internal jugular approach. While in the phlebotomist medical lab assistant, patient developed hypercapnic respiratory failure, with pCO2 as high as 120, required intubation and mechanical ventilation." 09/14 Pulmonary: "Hypotension, related to bradycardia, and hypovolemia, do not suspect sepsis, the patient was given 1 dose of hydrocortisone 100 mg on a trial basis." 09/14 Cardiology: "He was taken off of the dopamine drip is currently on a low- dose of vasopressors. Hypotension on vasopressors." 09/15 Cardiology: "Patient still remains on low-dose of vasopressors and per nursing if vasopressors are turned off, blood pressures dropped into the 60s systolic." Treatment: IV Levaquin 09/14-09/15, IV Levophed 09/13-09/16, IV Dopamine 09/13-09/14. 0.9 NS 1L bolus on 09/13. Successful placement of temporary pacemaker via the RIJ on 09/13. Arterial line placed on 09/13. Is there an additional diagnosis that is clinically appropriate for this patient? [ ] Cardiogenic Shock [ ] Hypovolemic Shock [ ] Other diagnosis, please specify [ ] Unable to determine (Template Last Reviewed: June 2020) Cardiogenic Shock MTDD
== END 2020-09-16 12:07 | disposition expired | DRG 871 ==
LOC: EC 09:32 → 3SCARD 11:29 → 2SICU 12:01
PROVIDERS: ADMIT Hospitalist; ATTEND Hospitalist
PROC: 3E033XZ Introduction of Vasopressor into Peripheral Vein, Percutaneous Approach (ICD-10-PCS; 2020-09-13)
PROC: 03HY32Z Insertion of Monitoring Device into Upper Artery, Percutaneous Approach (ICD-10-PCS; 2020-09-13)
PROC: 4A133B1 Monitoring of Arterial Pressure, Peripheral, Percutaneous Approach (ICD-10-PCS; 2020-09-13)
PROC: 4A133J1 Monitoring of Arterial Pulse, Peripheral, Percutaneous Approach (ICD-10-PCS; 2020-09-13)
PROC: 5A1223Z Performance of Cardiac Pacing, Continuous (ICD-10-PCS; 2020-09-13)
PROC: 5A1945Z Respiratory Ventilation, 24-96 Consecutive Hours (ICD-10-PCS; principal; 2020-09-13 18:30)
PROC: 5A09357 Assistance with Respiratory Ventilation, Less than 24 Consecutive Hours, Continuous Positive Airway Pressure (ICD-10-PCS; 2020-09-15)
PROC: 0BH17EZ Insertion of Endotracheal Airway into Trachea, Via Natural or Artificial Opening (ICD-10-PCS; 2020-09-16)
DX: A41.9 Sepsis, unspecified organism (principal); G93.41 Metabolic encephalopathy; J96.22 Acute and chronic respiratory failure with hypercapnia; J96.21 Acute and chronic respiratory failure with hypoxia; J15.6 Pneumonia due to other Gram-negative bacteria; N17.9 Acute kidney failure, unspecified; B02.23 Postherpetic polyneuropathy; I50.32 Chronic diastolic (congestive) heart failure; R57.0 Cardiogenic shock; I44.2 Atrioventricular block, complete; I48.3 Typical atrial flutter; I48.20 Chronic atrial fibrillation, unspecified; R00.1 Bradycardia, unspecified; Z51.5 Encounter for palliative care; R53.1 Weakness; Z66 Do not resuscitate; J44.9 Chronic obstructive pulmonary disease, unspecified; J62.8 Pneumoconiosis due to other dust containing silica; G89.29 Other chronic pain; M54.9 Dorsalgia, unspecified; M19.90 Unspecified osteoarthritis, unspecified site; I46.8 Cardiac arrest due to other underlying condition; K57.90 Diverticulosis of intestine, part unspecified, without perforation or abscess without bleeding; K59.00 Constipation, unspecified; Z90.49 Acquired absence of other specified parts of digestive tract; Z98.890 Other specified postprocedural states; Z90.2 Acquired absence of lung [part of]; Z96.82 Presence of neurostimulator; Z88.0 Allergy status to penicillin; Z88.2 Allergy status to sulfonamides; Z79.899 Other long term (current) drug therapy; Z79.01 Long term (current) use of anticoagulants; Z87.19 Personal history of other diseases of the digestive system; Z80.3 Family history of malignant neoplasm of breast; Z83.3 Family history of diabetes mellitus; Z81.8 Family history of other mental and behavioral disorders; Z20.822 Contact with and (suspected) exposure to COVID-19; J98.4 Other disorders of lung; D50.9 Iron deficiency anemia, unspecified; D69.6 Thrombocytopenia, unspecified; E86.0 Dehydration; I95.9 Hypotension, unspecified; M41.9 Scoliosis, unspecified; I25.10 Atherosclerotic heart disease of native coronary artery without angina pectoris; I11.0 Hypertensive heart disease with heart failure; E86.1 Hypovolemia; Z86.19 Personal history of other infectious and parasitic diseases; T42.6X5A Adverse effect of other antiepileptic and sedative-hypnotic drugs, initial encounter; Y92.234 Operating room of hospital as the place of occurrence of the external cause; N42.9 Disorder of prostate, unspecified; K43.9 Ventral hernia without obstruction or gangrene
CPT/HCPCS: 33210; 36415; 36600; 70450; 71045; 71046; 80048; 80053; 81001; 82805; 83605; 83735; 83880; 84439; 84443; 84481; 84484; 85025; 85610; 85730; 87040; 87070; 87077; 87186; 87205; 87635; 93005; 93306; 94002; 94003; 94640; 94660; 96360; 96361; 99291